=== PATIENT | male | born 1940 | race Caucasian/White ===

== ENCOUNTER → 2016-11-10 | Outpatient (CLI) | payer MEDICARE ==
--- NOTE | 2016-11-10 14:01 | REP ---
LEFT FOOT: HISTORY: Pain after trauma. 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 Large plantar and retrocalcaneal heel spurs are present. There is no evidence of an acute fracture. Signed by Jim Saucedo DO 11/10/2016 02:47 P
== END ==
LOC: M WUC 12:29
PROVIDERS: ATTEND Physician Assistant
DX: S93.602A Unspecified sprain of left foot, initial encounter (principal); X58.XXXA Exposure to other specified factors, initial encounter; Y93.9 Activity, unspecified; Y92.9 Unspecified place or not applicable; Y99.8 Other external cause status

== ENCOUNTER → 2017-02-11 | Outpatient (REF) | payer MEDICARE | LOC: M LAB REF 16:46 | PROVIDERS: ATTEND Internal Medicine | DX: N18.3 Chronic kidney disease, stage 3 (moderate) (principal) ==

== ENCOUNTER → 2017-05-28 | Outpatient (REF) | payer MEDICARE, OTHER ==
[2017-05-28 19:02] LABS: PERCENT SATURATION 20.5 % (19.7-50.0)
== END ==
LOC: M LAB REF 17:18
PROVIDERS: ATTEND Internal Medicine
DX: D64.9 Anemia, unspecified (principal)

== ENCOUNTER → 2018-11-17 | Outpatient (REF) | payer MEDICARE, OTHER | LOC: M LAB REF 17:56 | PROVIDERS: ATTEND Internal Medicine | DX: R25.1 Tremor, unspecified (principal) ==

== ENCOUNTER 2021-08-08 04:26 | Inpatient (IN) | payer MEDICARE, OTHER ==
[~2021-08-08] VITALS: Ht 175.3 cm; Wt 97.0 kg
[2021-08-08] MEDS ORDERED: NS 1,000 ML IV ONE (04:40)
[2021-08-08 05:00] LABS: BASO # 0.1 10^3/uL (0.0-0.2); BASO % 0.5 % (0.0-1.0); EOS % 0.2 % (0.0-3.0); HEMATOCRIT 37.7 % (42.0-52.0); HEMOGLOBIN 12.2 g/dl (13.5-17.5); LYMPH # 0.8 10^3/uL (1.5-5.0); LYMPH % 6.5 % (24.0-44.0); MEAN CORPUSCULAR HEMOGLOBIN 30.7 pg (27.0-33.0); MEAN CORPUSCULAR HGB CONC 32.4 g/dl (32.0-36.5); MEAN CORPUSCULAR VOLUME 94.7 fl (80.0-96.0); MONO # 0.6 10^3/uL (0.0-0.8); MONO % 5.2 % (2.0-8.0); NEUTROPHILS # 10.5 10^3/uL (1.5-8.5); PLATELET COUNT, AUTOMATED 184 10^3/uL (150-450); RED BLOOD COUNT 3.98 10^6/uL (4.30-6.10); WHITE BLOOD COUNT 12.1 10^3/uL (4.0-10.0)
[2021-08-08] MEDS ORDERED: ONDANSETRON 4MG/2ML VIAL As Ordered ONE (05:01)
[2021-08-08] MEDS ORDERED: ONDANSETRON 4MG/2ML VIAL IV ONE (05:10)
[2021-08-08 05:26] LABS: ALBUMIN 3.3 GM/DL (3.2-5.2); BILIRUBIN,DIRECT 0.2 MG/DL (0.0-0.2); BILIRUBIN,TOTAL 0.3 MG/DL (0.2-1.0); CALCIUM LEVEL 8.9 MG/DL (8.8-10.2); CREATININE FOR GFR 2.22 MG/DL (0.70-1.30); GLOMERULAR FILTRATION RATE 30.4 (>35); POTASSIUM SERUM 4.1 MEQ/L (3.5-5.1); TOTAL PROTEIN 7.7 GM/DL (6.4-8.2)
[2021-08-08 05:31] LABS: CK-MB VALUE MASS < 1.0 NG/ML (<3.6); CPK CREATINE PHOSPHOKINASE 134 U/L (39-308); MB/CK RELATIVE INDEX 0.75 (< OR =4)
[2021-08-08 06:44] LABS: CK-MB VALUE MASS 1.4 NG/ML (<3.6); MB/CK RELATIVE INDEX 1.09 (< OR =4)
[2021-08-08] MEDS ORDERED: NS 2,000 ML in IV 1 EA IV ONE (06:50)
[2021-08-08] MEDS ORDERED: SITA50TAB PO (10:19)
[2021-08-08] MEDS ORDERED: HOME MED LIST COMPLETE! XX SCH (10:20)
[2021-08-08] MEDS: NS 1,000 ML IV SCH (14:21)
[2021-08-08 14:22] VITALS: BP 172/83
[2021-08-08 17:18] LABS: BASO % 0.3 % (0.0-1.0); EOS % 0.1 % (0.0-3.0); HEMATOCRIT 33.7 % (42.0-52.0); HEMOGLOBIN 10.8 g/dl (13.5-17.5); LYMPH # 1.6 10^3/uL (1.5-5.0); LYMPH % 12.9 % (24.0-44.0); MEAN CORPUSCULAR HEMOGLOBIN 30.3 pg (27.0-33.0); MEAN CORPUSCULAR VOLUME 94.4 fl (80.0-96.0); MONO # 0.7 10^3/uL (0.0-0.8); MONO % 5.7 % (2.0-8.0); NEUTROPHILS # 10.2 10^3/uL (1.5-8.5); NEUTROPHILS % 80.4 % (36.0-66.0); PLATELET COUNT, AUTOMATED 166 10^3/uL (150-450); RED BLOOD COUNT 3.57 10^6/uL (4.30-6.10); WHITE BLOOD COUNT 12.7 10^3/uL (4.0-10.0)
[2021-08-08 17:53] LABS: BILIRUBIN,TOTAL 0.3 MG/DL (0.2-1.0); CALCIUM LEVEL 8.3 MG/DL (8.8-10.2); CREATININE FOR GFR 1.72 MG/DL (0.70-1.30); GLOMERULAR FILTRATION RATE 40.8 (>35); POTASSIUM SERUM 4.4 MEQ/L (3.5-5.1); THYROID STIMULATING HORMONE 0.696 uIU/ML (0.358-3.740); TOTAL PROTEIN 6.9 GM/DL (6.4-8.2)
[2021-08-08 18:16] LABS: CK-MB VALUE MASS 10.3 NG/ML (<3.6); MB/CK RELATIVE INDEX 0.67 (< OR =4)
[2021-08-08 22:00] VITALS: BP 166/61
[2021-08-09 05:00] VITALS: BP 144/70
[2021-08-09] MEDS: NS 1,000 ML IV SCH (06:37)
[2021-08-09 06:40] LABS: HEMATOCRIT 32.4 % (42.0-52.0); HEMOGLOBIN 10.4 g/dl (13.5-17.5); MEAN CORPUSCULAR HEMOGLOBIN 30.4 pg (27.0-33.0); MEAN CORPUSCULAR HGB CONC 32.1 g/dl (32.0-36.5); MEAN CORPUSCULAR VOLUME 94.7 fl (80.0-96.0); PLATELET COUNT, AUTOMATED 155 10^3/uL (150-450); RED BLOOD COUNT 3.42 10^6/uL (4.30-6.10); WHITE BLOOD COUNT 10.2 10^3/uL (4.0-10.0)
[2021-08-09 07:04] LABS: ALBUMIN 2.6 GM/DL (3.2-5.2); BILIRUBIN,TOTAL 0.3 MG/DL (0.2-1.0); CALCIUM LEVEL 8.6 MG/DL (8.8-10.2); CREATININE FOR GFR 1.61 MG/DL (0.70-1.30); GLOMERULAR FILTRATION RATE 44.1 (>35); POTASSIUM SERUM 4.1 MEQ/L (3.5-5.1); TOTAL PROTEIN 6.7 GM/DL (6.4-8.2)
[2021-08-09 14:00] VITALS: BP 141/64
[2021-08-09] MEDS: NYSTATIN 100,000 UNITS/GM TOPICAL PWD 15 GM TOP PRN (18:10)
[2021-08-09 21:04] VITALS: BP 133/64
[2021-08-10 05:31] VITALS: BP 143/78
[2021-08-10 09:03] LABS: BASO % 0.6 % (0.0-1.0); EOS # 0.2 10^3/uL (0.0-0.5); EOS % 2.7 % (0.0-3.0); HEMATOCRIT 32.3 % (42.0-52.0); HEMOGLOBIN 10.5 g/dl (13.5-17.5); LYMPH % 30.2 % (24.0-44.0); MEAN CORPUSCULAR HEMOGLOBIN 30.3 pg (27.0-33.0); MEAN CORPUSCULAR HGB CONC 32.5 g/dl (32.0-36.5); MEAN CORPUSCULAR VOLUME 93.1 fl (80.0-96.0); MONO # 0.6 10^3/uL (0.0-0.8); MONO % 8.5 % (2.0-8.0); NEUTROPHILS # 3.8 10^3/uL (1.5-8.5); NEUTROPHILS % 57.5 % (36.0-66.0); PLATELET COUNT, AUTOMATED 179 10^3/uL (150-450); RED BLOOD COUNT 3.47 10^6/uL (4.30-6.10); WHITE BLOOD COUNT 6.6 10^3/uL (4.0-10.0)
[2021-08-10 09:26] LABS: CALCIUM LEVEL 8.4 MG/DL (8.8-10.2); CREATININE FOR GFR 1.47 MG/DL (0.70-1.30); GLOMERULAR FILTRATION RATE 48.9 (>35); POTASSIUM SERUM 3.9 MEQ/L (3.5-5.1)
[2021-08-10 10:25] VITALS: BP 174/82
[2021-08-10 14:00] VITALS: BP 121/68
[2021-08-10] MEDS: NYSTATIN 100,000 UNITS/GM TOPICAL PWD 15 GM TOP PRN (21:17)
[2021-08-10 22:00] VITALS: BP 154/65
[2021-08-11 06:00] VITALS: BP 154/72
[2021-08-11 06:37] LABS: HEMATOCRIT 34.1 % (42.0-52.0); MEAN CORPUSCULAR HEMOGLOBIN 29.9 pg (27.0-33.0); MEAN CORPUSCULAR HGB CONC 32.3 g/dl (32.0-36.5); MEAN CORPUSCULAR VOLUME 92.7 fl (80.0-96.0); PLATELET COUNT, AUTOMATED 197 10^3/uL (150-450); RED BLOOD COUNT 3.68 10^6/uL (4.30-6.10); WHITE BLOOD COUNT 6.5 10^3/uL (4.0-10.0)
[2021-08-11 06:55] LABS: CALCIUM LEVEL 8.8 MG/DL (8.8-10.2); CREATININE FOR GFR 1.51 MG/DL (0.70-1.30); GLOMERULAR FILTRATION RATE 47.5 (>35); POTASSIUM SERUM 3.5 MEQ/L (3.5-5.1)
[2021-08-12 06:00] VITALS: BP 142/78
[2021-08-12] MEDS: CALCIUM CARBONATE 500 MG CHEW U/D PO PRN (18:19)
[2021-08-13 06:00] VITALS: BP 171/75
[2021-08-13] MEDS ORDERED: **hydrALAZINE HCL** 25 MG TAB PO ONE (06:20)
[2021-08-13 06:45] VITALS: BP 180/78
[2021-08-13] MEDS: amLODIPine 5 MG TAB PO SCH (08:06)
[2021-08-13 12:08] VITALS: BP 143/68
[2021-08-13] MEDS: CALCIUM CARBONATE 500 MG CHEW U/D PO PRN (15:49)
[2021-08-13] MEDS: ACETAMINOPHEN TAB 650MG DOSE (2X325MG) PO PRN (15:49)
[2021-08-13] MEDS ORDERED: SENNA 8.6 MG TAB (SENOKOT) PO PRN (16:30)
[2021-08-13] MEDS ORDERED: DOCUSATE SODIUM 100MG CAPSULE PO PRN (16:30)
[2021-08-13] MEDS ORDERED: MOM 30ML SUSPENSION UDC PO PRN (16:30)
[2021-08-14 06:00] VITALS: BP 153/70
[2021-08-14] MEDS: amLODIPine 5 MG TAB PO SCH (09:00)
[2021-08-14] MEDS: ACETAMINOPHEN TAB 650MG DOSE (2X325MG) PO PRN ×2 (09:02→17:47)
[2021-08-14] MEDS: CALCIUM CARBONATE 500 MG CHEW U/D PO PRN ×2 (15:40→20:12)
[2021-08-14 21:00] VITALS: BP 150/60
[2021-08-14] MEDS ORDERED: GI COCKTAIL 50ML BTL(HYOSCYAMINE/MAALOX/LIDOCAINE VISCOUS)(1:3:1) PO ONE (21:00)
[2021-08-15] MEDS: CALCIUM CARBONATE 500 MG CHEW U/D PO PRN ×5 (00:17→22:00)
[2021-08-15 06:00] VITALS: BP 158/81
[2021-08-15] MEDS: amLODIPine 5 MG TAB PO SCH (09:08)
[2021-08-15] MEDS: ACETAMINOPHEN TAB 650MG DOSE (2X325MG) PO PRN (10:46)
[2021-08-15] MEDS ORDERED: MAALOX 30 ML SUSP *UDC PO ONE (15:35)
[2021-08-16] MEDS: ACETAMINOPHEN TAB 650MG DOSE (2X325MG) PO PRN (02:45)
[2021-08-16 06:00] VITALS: BP 163/74
[2021-08-16] MEDS: amLODIPine 5 MG TAB PO SCH (09:14)
[2021-08-16] MEDS: CALCIUM CARBONATE 500 MG CHEW U/D PO PRN (22:27)
[2021-08-17 06:00] VITALS: BP 129/70
[2021-08-17] MEDS: CALCIUM CARBONATE 500 MG CHEW U/D PO PRN (09:33)
[2021-08-17] MEDS: amLODIPine 5 MG TAB PO SCH (09:34)
[2021-08-17] MEDS ORDERED: MAALOX 30 ML SUSP *UDC PO PRN (16:45)
[2021-08-17] MEDS: ACETAMINOPHEN TAB 650MG DOSE (2X325MG) PO PRN (18:29)
[2021-08-18] MEDS: ACETAMINOPHEN TAB 650MG DOSE (2X325MG) PO PRN ×2 (02:23→12:12)
[2021-08-18 06:00] VITALS: BP 149/76
[2021-08-18] MEDS: amLODIPine 5 MG TAB PO SCH (09:12)
[2021-08-18] MEDS: CALCIUM CARBONATE 500 MG CHEW U/D PO PRN ×2 (12:15→18:55)
[2021-08-19] MEDS: ACETAMINOPHEN TAB 650MG DOSE (2X325MG) PO PRN ×2 (01:07→20:58)
[2021-08-19 06:00] VITALS: BP 158/72
[2021-08-19 08:10] VITALS: BP 149/80
[2021-08-19] MEDS: amLODIPine 5 MG TAB PO SCH (08:37)
[2021-08-19 13:16] LABS: HEMATOCRIT 38.9 % (42.0-52.0); HEMOGLOBIN 12.3 g/dl (13.5-17.5); MEAN CORPUSCULAR HGB CONC 31.6 g/dl (32.0-36.5); MEAN CORPUSCULAR VOLUME 94.9 fl (80.0-96.0); PLATELET COUNT, AUTOMATED 241 10^3/uL (150-450)
[2021-08-19 13:38] LABS: CALCIUM LEVEL 9.4 MG/DL (8.8-10.2); CREATININE FOR GFR 1.89 MG/DL (0.70-1.30); GLOMERULAR FILTRATION RATE 36.6 (>35); POTASSIUM SERUM 5.1 MEQ/L (3.5-5.1)
[2021-08-19 13:39] LABS: MAGNESIUM LEVEL 2.4 MG/DL (1.8-2.4); PHOSPHORUS LEVEL 3.2 MG/DL (2.5-4.9)
[2021-08-19] MEDS ORDERED: NS 1,000 ML IV SCH (14:25)
[2021-08-19] MEDS: FAMOTIDINE 20 MG TAB PO SCH (20:38)
[2021-08-19] MEDS: HEPARIN SOD (PORCINE) 5000UNITS/ML 1ML VIAL/SYRINGE SQ SCH (21:00)
[2021-08-20] MEDS: HEPARIN SOD (PORCINE) 5000UNITS/ML 1ML VIAL/SYRINGE SQ SCH ×3 (05:14→21:41)
[2021-08-20 06:00] VITALS: BP 169/76
[2021-08-20] MEDS: FAMOTIDINE 20 MG TAB PO SCH ×2 (09:13→21:40)
[2021-08-20] MEDS: amLODIPine 5 MG TAB PO SCH (09:13)
[2021-08-20 10:00] VITALS: BP 162/74
[2021-08-20] MEDS: **hydrALAZINE HCL** 25 MG TAB PO SCH ×2 (15:01→18:37)
[2021-08-21] MEDS: **hydrALAZINE HCL** 25 MG TAB PO SCH ×4 (01:03→18:24)
[2021-08-21 06:00] VITALS: BP 153/71
[2021-08-21] MEDS: HEPARIN SOD (PORCINE) 5000UNITS/ML 1ML VIAL/SYRINGE SQ SCH ×3 (06:11→21:10)
[2021-08-21 06:53] LABS: CALCIUM LEVEL 8.7 MG/DL (8.8-10.2); CREATININE FOR GFR 1.68 MG/DL (0.70-1.30); MAGNESIUM LEVEL 2.1 MG/DL (1.8-2.4); PHOSPHORUS LEVEL 2.8 MG/DL (2.5-4.9); POTASSIUM SERUM 4.4 MEQ/L (3.5-5.1)
[2021-08-21] MEDS: amLODIPine 5 MG TAB PO SCH (09:10)
[2021-08-21] MEDS: FAMOTIDINE 20 MG TAB PO SCH ×2 (09:10→21:08)
[2021-08-21] MEDS: ACETAMINOPHEN TAB 650MG DOSE (2X325MG) PO PRN (12:58)
[2021-08-22] MEDS: **hydrALAZINE HCL** 25 MG TAB PO SCH ×3 (01:57→11:22)
[2021-08-22] MEDS: HEPARIN SOD (PORCINE) 5000UNITS/ML 1ML VIAL/SYRINGE SQ SCH ×2 (05:52→11:23)
[2021-08-22 06:00] VITALS: BP 136/73
[2021-08-22 11:22] VITALS: BP 136/73
[2021-08-22] MEDS: amLODIPine 5 MG TAB PO SCH (11:22)
[2021-08-22] MEDS: FAMOTIDINE 20 MG TAB PO SCH (11:22)
[2021-08-22] MEDS: ACETAMINOPHEN TAB 650MG DOSE (2X325MG) PO PRN (11:23)
[2021-08-22] MEDS ORDERED: AMLO1TAB24 PO (12:39)
[2021-08-22] MEDS ORDERED: HYDR25TA PO (12:39)
[2021-08-22] MEDS ORDERED: FAMO20TA PO (12:39)
== END 2021-08-22 16:05 | disposition home health service (06) | DRG 392 ==
LOC: M ED 04:26 → M ED INP 10:01 → ENRESERV 12:43 → M MSPAV 16:04
PROVIDERS: ADMIT Internal Medicine; ATTEND Internal Medicine
DX: R11.2 Nausea with vomiting, unspecified (principal); B97.29 Other coronavirus as the cause of diseases classified elsewhere; I10 Essential (primary) hypertension; E11.22 Type 2 diabetes mellitus with diabetic chronic kidney disease; Z79.899 Other long term (current) drug therapy; Z20.822 Contact with and (suspected) exposure to COVID-19; R53.1 Weakness; N18.30 Chronic kidney disease, stage 3 unspecified; K21.9 Gastro-esophageal reflux disease without esophagitis

== ENCOUNTER → 2021-09-03 | Outpatient (REF) | payer MEDICARE, OTHER ==
[~2021-09-03] MED LIST: AMLO1TAB24 PO; FAMO20TA PO; HYDR25TA PO; SITA50TAB PO
[2021-09-03 17:37] LABS: PERCENT SATURATION 28.8 % (19.7-50.0)
== END ==
LOC: M LAB REF 16:05
PROVIDERS: ATTEND Internal Medicine
DX: N18.9 Chronic kidney disease, unspecified (principal); D63.1 Anemia in chronic kidney disease

== ENCOUNTER 2021-10-30 17:58 | Inpatient (IN) | payer OTHER ==
[~2021-10-30] VITALS: Ht 175.3 cm; Wt 81.8 kg
[2021-10-30] MEDS: COMBIVENT RESPIMAT 100-20MCG INHALER 4GM INH SCH ×3 (20:05→20:37)
[2021-10-30 20:35] LABS: VENOUS BASE EXCESS -4.7 (-2.0-2.0); VENOUS HCO3 21.6 MEQ/L (23.0-27.0); VENOUS O2 SATURATION 50.5 % (60.0-80.0); VENOUS PARTIAL PRESSURE CO2 44.4 mmHg (38.0-50.0); VENOUS PH 7.304 UNITS (7.330-7.430); VENOUS STANDARD HCO3 19.6 MEQ/L; VENOUS TOTAL CO2 22.9 MEQ/L (24.0-28.0)
[2021-10-30 20:41] LABS: BASO % 0.7 % (0.0-1.0); EOS # 0.1 10^3/uL (0.0-0.5); EOS % 1.1 % (0.0-3.0); HEMATOCRIT 37.6 % (42.0-52.0); HEMOGLOBIN 12.1 g/dl (13.5-17.5); LYMPH # 1.5 10^3/uL (1.5-5.0); MEAN CORPUSCULAR HEMOGLOBIN 30.6 pg (27.0-33.0); MEAN CORPUSCULAR HGB CONC 32.2 g/dl (32.0-36.5); MEAN CORPUSCULAR VOLUME 95.2 fl (80.0-96.0); MONO # 0.3 10^3/uL (0.0-0.8); MONO % 7.2 % (2.0-8.0); NEUTROPHILS # 2.7 10^3/uL (1.5-8.5); NEUTROPHILS % 57.8 % (36.0-66.0); PLATELET COUNT, AUTOMATED 186 10^3/uL (150-450); RED BLOOD COUNT 3.95 10^6/uL (4.30-6.10); WHITE BLOOD COUNT 4.6 10^3/uL (4.0-10.0)
[2021-10-30] MEDS: FAMOTIDINE 20 MG TAB PO SCH (21:00)
[2021-10-30] MEDS: HumaLOG INSULIN (NovoLOG) PER UNIT SC SCH (21:00)
[2021-10-30 21:15] LABS: CK-MB VALUE MASS 1.4 NG/ML (<3.6); MB/CK RELATIVE INDEX 0.31 (< OR =4)
[2021-10-30 21:25] LABS: ALBUMIN 3.5 GM/DL (3.2-5.2); BILIRUBIN,DIRECT 0.1 MG/DL (0.0-0.2); BILIRUBIN,TOTAL 0.4 MG/DL (0.2-1.0); CALCIUM LEVEL 9.3 MG/DL (8.8-10.2); CREATININE FOR GFR 2.3 MG/DL (0.70-1.30); GLOMERULAR FILTRATION RATE 29.2 (>35); POTASSIUM SERUM 4.3 MEQ/L (3.5-5.1); TOTAL PROTEIN 8.2 GM/DL (6.4-8.2)
[2021-10-30] MEDS ORDERED: NS 500 ML IV ONE (21:30)
[2021-10-30] MEDS ORDERED: AMLO1TAB24 PO (22:36)
[2021-10-30] MEDS ORDERED: FAMO20TA4 PO (22:36)
[2021-10-30] MEDS ORDERED: HYDR-3910 PO (22:36)
[2021-10-30 22:39] LABS: CK-MB VALUE MASS 1.3 NG/ML (<3.6); MB/CK RELATIVE INDEX 0.26 (< OR =4)
[2021-10-30] MEDS ORDERED: HOME MED LIST COMPLETE! XX SCH (22:40)
[2021-10-30] MEDS ORDERED: MOM 30ML SUSPENSION UDC PO PRN (23:25)
[2021-10-30] MEDS ORDERED: DEXTROSE 50% 50 ML SYRINGE IV PRN (23:30)
[2021-10-30] MEDS ORDERED: GLUCOSE 4GM CHEW TABLET PO PRN (23:30)
[2021-10-30] MEDS ORDERED: GLUCAGON INJ 1MG VIAL SC PRN (23:30)
[2021-10-30] MEDS: NS 1,000 ML IV SCH (23:30)
[2021-10-31 01:09] LABS: INR 1.02; PROTHROMBIN TIME 13.8 SECONDS (12.7-14.5)
[2021-10-31 01:10] LABS: PARTIAL THROMBOPLASTIN TIME 26.8 SECONDS (25.9-37.0)
[2021-10-31 01:12] LABS: C REACTIVE PROTEIN QUANTITATIV 1.4 MG/DL (0.00-0.30)
[2021-10-31 01:13] LABS: D-DIMER QUANT 1516.19 ng/ml (<500)
[2021-10-31] MEDS ORDERED: REMDESIVIR 200 MG in NS 250 ML IV ONE (02:00)
[2021-10-31] MEDS ORDERED: SODIUM CHLORIDE 0.9% INJ 10 ML SYR IV ONE (04:00)
[2021-10-31] MEDS ORDERED: IPRATROPIUM 0.5MG/ALBUTEROL 2.5MG INH SOL UD 3ML (DUONEB) NEB ONE (06:20)
[2021-10-31] MEDS: HEPARIN SOD (PORCINE) 5000UNITS/ML 1ML VIAL/SYRINGE SC SCH ×3 (06:24→20:22)
[2021-10-31] MEDS ORDERED: hydrALAZINE 20MG/ML 1ML VIAL (J0360 PER 20MG) IV ONE (06:25)
[2021-10-31 06:54] LABS: HEMATOCRIT 34.4 % (42.0-52.0); HEMOGLOBIN 11.2 g/dl (13.5-17.5); MEAN CORPUSCULAR HEMOGLOBIN 30.9 pg (27.0-33.0); MEAN CORPUSCULAR HGB CONC 32.6 g/dl (32.0-36.5); MEAN CORPUSCULAR VOLUME 94.8 fl (80.0-96.0); PLATELET COUNT, AUTOMATED 162 10^3/uL (150-450); RED BLOOD COUNT 3.63 10^6/uL (4.30-6.10); WHITE BLOOD COUNT 5.7 10^3/uL (4.0-10.0)
[2021-10-31] MEDS: **hydrALAZINE HCL** 25 MG TAB PO SCH ×4 (07:03→23:53)
[2021-10-31 07:19] LABS: ALBUMIN 3.3 GM/DL (3.2-5.2); BILIRUBIN,DIRECT 0.1 MG/DL (0.0-0.2); BILIRUBIN,TOTAL 0.3 MG/DL (0.2-1.0); CALCIUM LEVEL 8.1 MG/DL (8.8-10.2); CREATININE FOR GFR 2.26 MG/DL (0.70-1.30); GLOMERULAR FILTRATION RATE 29.8 (>35); MAGNESIUM LEVEL 1.8 MG/DL (1.8-2.4); POTASSIUM SERUM 4.1 MEQ/L (3.5-5.1); TOTAL PROTEIN 7.2 GM/DL (6.4-8.2)
[2021-10-31] MEDS: HumaLOG INSULIN (NovoLOG) PER UNIT SC SCH ×6 (07:23→20:09)
[2021-10-31] MEDS: NS 1,000 ML IV SCH (08:19)
[2021-10-31] MEDS: DOCUSATE SODIUM 100MG CAPSULE PO SCH ×2 (10:29→20:22)
[2021-10-31] MEDS: amLODIPine 5 MG TAB PO SCH (10:29)
[2021-10-31] MEDS: FAMOTIDINE 20 MG TAB PO SCH ×2 (10:29→20:22)
[2021-10-31] MEDS: ACETAMINOPHEN TAB 650MG DOSE (2X325MG) PO PRN ×2 (11:16→17:51)
[2021-10-31 15:50] VITALS: BP 137/72
[2021-10-31 16:00] VITALS: O2SAT 99
[2021-10-31 16:00] LABS: ALBUMIN 3.5 GM/DL (3.2-5.2); BILIRUBIN,TOTAL 0.4 MG/DL (0.2-1.0); CALCIUM LEVEL 8.8 MG/DL (8.8-10.2); CREATININE FOR GFR 2.51 MG/DL (0.70-1.30); GLOMERULAR FILTRATION RATE 26.4 (>35); POTASSIUM SERUM 4.2 MEQ/L (3.5-5.1); TOTAL PROTEIN 7.6 GM/DL (6.4-8.2)
[2021-10-31] MEDS: dexameTHASONE 4 MG/ML 1ML VIAL (J1100 PER 1MG) IV SCH (17:45)
[2021-10-31 20:00] VITALS: BP 132/62
[2021-10-31] MEDS: REMDESIVIR 100 MG in NS 250 ML IV SCH (20:22)
[2021-10-31] MEDS ORDERED: VANCOMYCIN HCL 1,000 MG, VIAL MATE ADAPTER 1 EACH in NS 250 ML IV ONE (20:50)
[2021-10-31] MEDS: SODIUM CHLORIDE 0.9% INJ 10 ML SYR IV SCH (21:37)
[2021-10-31 22:00] VITALS: BP 132/62
[2021-10-31] MEDS ORDERED: VANCOMYCIN HCL 750 MG, VIAL MATE ADAPTER 1 EACH in NS 250 ML IV ONE (23:00)
[2021-11-01] MEDS ORDERED: VANCOMYCIN HCL 750 MG, VIAL MATE ADAPTER 1 EACH in NS 250 ML IV ONE ×3
[2021-11-01 04:00] VITALS: BP 135/65
[2021-11-01] MEDS: HEPARIN SOD (PORCINE) 5000UNITS/ML 1ML VIAL/SYRINGE SC SCH ×3 (05:21→20:23)
[2021-11-01] MEDS: **hydrALAZINE HCL** 25 MG TAB PO SCH ×3 (05:21→17:22)
[2021-11-01 08:00] VITALS: BP 148/67
[2021-11-01] MEDS: FAMOTIDINE 20 MG TAB PO SCH ×2 (08:23→20:23)
[2021-11-01] MEDS: DOCUSATE SODIUM 100MG CAPSULE PO SCH ×2 (08:23→20:23)
[2021-11-01] MEDS: HumaLOG INSULIN (NovoLOG) PER UNIT SC SCH ×4 (08:25→20:24)
[2021-11-01] MEDS: amLODIPine 5 MG TAB PO SCH (08:25)
[2021-11-01 09:12] LABS: HEMATOCRIT 36.6 % (42.0-52.0); HEMOGLOBIN 11.9 g/dl (13.5-17.5); LYMPH # 0.9 10^3/uL (1.5-5.0); LYMPH % 9.1 % (24.0-44.0); MEAN CORPUSCULAR HEMOGLOBIN 31.1 pg (27.0-33.0); MEAN CORPUSCULAR HGB CONC 32.5 g/dl (32.0-36.5); MEAN CORPUSCULAR VOLUME 95.6 fl (80.0-96.0); MONO # 0.3 10^3/uL (0.0-0.8); NEUTROPHILS # 8.2 10^3/uL (1.5-8.5); NEUTROPHILS % 87.3 % (36.0-66.0); PLATELET COUNT, AUTOMATED 186 10^3/uL (150-450); RED BLOOD COUNT 3.83 10^6/uL (4.30-6.10); WHITE BLOOD COUNT 9.4 10^3/uL (4.0-10.0)
[2021-11-01 09:24] LABS: INR 1.1; PARTIAL THROMBOPLASTIN TIME 37.7 SECONDS (25.9-37.0); PROTHROMBIN TIME 14.6 SECONDS (12.7-14.5)
[2021-11-01 09:27] LABS: D-DIMER QUANT 2169.41 ng/ml (<500)
[2021-11-01 09:48] LABS: ALBUMIN 3.1 GM/DL (3.2-5.2); BILIRUBIN,TOTAL 0.3 MG/DL (0.2-1.0); CALCIUM LEVEL 8.7 MG/DL (8.8-10.2); CREATININE FOR GFR 1.89 MG/DL (0.70-1.30); GLOMERULAR FILTRATION RATE 36.6 (>35); MAGNESIUM LEVEL 2.1 MG/DL (1.8-2.4); TOTAL PROTEIN 6.9 GM/DL (6.4-8.2)
[2021-11-01 09:50] LABS: C REACTIVE PROTEIN QUANTITATIV 6.65 MG/DL (0.00-0.30)
[2021-11-01 11:33] LABS: VANCOMYCIN RANDOM 15.8 UG/ML
[2021-11-01 13:43] VITALS: BP 152/72
[2021-11-01] MEDS ORDERED: VANCOMYCIN HCL 1,000 MG, VIAL MATE ADAPTER 1 EACH in NS 250 ML IV SCH (14:00)
[2021-11-01] MEDS: dexameTHASONE 4 MG/ML 1ML VIAL (J1100 PER 1MG) IV SCH (17:21)
[2021-11-01 19:21] LABS: AMORPHOUS SEDIMENT SMALL (NEGATIVE); APPEARANCE, URINE CLOUDY (CLEAR); BACTERIA, URINE AUTO NEGATIVE (NEGATIVE); BILIRUBIN, URINE AUTO NEGATIVE (NEGATIVE); BLOOD, URINE BLOOD 1+ (NEGATIVE); COLOR, URINE YELLOW (YELLOW); GLUCOSE, URINE (UA) AUTO 1+ mg/dL (NEGATIVE); KETONE, URINE AUTO TRACE mg/dL (NEGATIVE); LEUKOCYTE ESTERASE, URINE AUTO NEGATIVE (NEGATIVE); MUCUS, URINE SMALL (NEGATIVE); NITRITE, URINE AUTO NEGATIVE (NEGATIVE); PROTEIN, URINE AUTO 1+ mg/dL (NEGATIVE); RBC, URINE AUTO 43 /HPF (0-3); SPECIFIC GRAVITY URINE AUTO 1.024 (1.002-1.035); SQUAMOUS EPITHELIAL CELL UR AU 2 /HPF (0-6); URIC ACID CRYSTALS SMALL; UROBILINOGEN, URINE AUTO 0.2 mg/dL (0.0-2.0); WBC, URINE AUTO 4 /HPF (0-3)
[2021-11-01 20:00] VITALS: BP 150/70; O2SAT 99
[2021-11-01] MEDS: REMDESIVIR 100 MG in NS 250 ML IV SCH (21:29)
[2021-11-01] MEDS: SODIUM CHLORIDE 0.9% INJ 10 ML SYR IV SCH (22:32)
[2021-11-02] VITALS (8 sets, daily range): BP systolic 167–170; BP diastolic 74–77; O2SAT 96–98
[2021-11-02] MEDS: **hydrALAZINE HCL** 25 MG TAB PO SCH ×4 (05:21→17:56)
[2021-11-02] MEDS: NYSTATIN 100,000 UNITS/GM TOPICAL PWD 15 GM TOP PRN ×2 (05:21→21:29)
[2021-11-02] MEDS: HEPARIN SOD (PORCINE) 5000UNITS/ML 1ML VIAL/SYRINGE SC SCH ×3 (05:21→21:30)
[2021-11-02 08:10] LABS: BASO % 0.1 % (0.0-1.0); HEMATOCRIT 33.6 % (42.0-52.0); HEMOGLOBIN 10.9 g/dl (13.5-17.5); LYMPH # 0.9 10^3/uL (1.5-5.0); LYMPH % 7.4 % (24.0-44.0); MEAN CORPUSCULAR HEMOGLOBIN 30.7 pg (27.0-33.0); MEAN CORPUSCULAR HGB CONC 32.4 g/dl (32.0-36.5); MEAN CORPUSCULAR VOLUME 94.6 fl (80.0-96.0); MONO # 0.5 10^3/uL (0.0-0.8); MONO % 3.7 % (2.0-8.0); NEUTROPHILS # 10.8 10^3/uL (1.5-8.5); NEUTROPHILS % 87.7 % (36.0-66.0); PLATELET COUNT, AUTOMATED 207 10^3/uL (150-450); RED BLOOD COUNT 3.55 10^6/uL (4.30-6.10); WHITE BLOOD COUNT 12.4 10^3/uL (4.0-10.0)
[2021-11-02] MEDS: amLODIPine 5 MG TAB PO SCH (08:16)
[2021-11-02] MEDS: HumaLOG INSULIN (NovoLOG) PER UNIT SC SCH ×4 (08:16→21:00)
[2021-11-02] MEDS: FAMOTIDINE 20 MG TAB PO SCH ×2 (08:16→21:30)
[2021-11-02] MEDS: DOCUSATE SODIUM 100MG CAPSULE PO SCH ×2 (08:16→21:30)
[2021-11-02 08:22] LABS: INR 1.23; PARTIAL THROMBOPLASTIN TIME 35.5 SECONDS (25.9-37.0); PROTHROMBIN TIME 15.9 SECONDS (12.7-14.5)
[2021-11-02 08:25] LABS: D-DIMER QUANT 1717.75 ng/ml (<500)
[2021-11-02 08:44] LABS: ALBUMIN 2.8 GM/DL (3.2-5.2); BILIRUBIN,TOTAL 0.3 MG/DL (0.2-1.0); C REACTIVE PROTEIN QUANTITATIV 4.45 MG/DL (0.00-0.30); CALCIUM LEVEL 8.7 MG/DL (8.8-10.2); CREATININE FOR GFR 1.72 MG/DL (0.70-1.30); GLOMERULAR FILTRATION RATE 40.8 (>35); MAGNESIUM LEVEL 2.1 MG/DL (1.8-2.4); TOTAL PROTEIN 6.4 GM/DL (6.4-8.2)
[2021-11-02] MEDS: predniSONE 20 MG TAB PO SCH (14:34)
[2021-11-02] MEDS: REMDESIVIR 100 MG in NS 250 ML IV SCH (21:29)
[2021-11-02] MEDS: SODIUM CHLORIDE 0.9% INJ 10 ML SYR IV SCH (23:00)
[2021-11-03] VITALS (7 sets, daily range): BP systolic 119–175; BP diastolic 55–82; O2SAT 93–97
[2021-11-03] MEDS: **hydrALAZINE HCL** 25 MG TAB PO SCH ×4 (05:46→17:01)
[2021-11-03] MEDS: HEPARIN SOD (PORCINE) 5000UNITS/ML 1ML VIAL/SYRINGE SC SCH ×3 (05:48→22:07)
[2021-11-03] MEDS: predniSONE 20 MG TAB PO SCH (08:11)
[2021-11-03] MEDS: HumaLOG INSULIN (NovoLOG) PER UNIT SC SCH ×4 (08:11→20:05)
[2021-11-03] MEDS: DOCUSATE SODIUM 100MG CAPSULE PO SCH ×2 (08:11→20:04)
[2021-11-03] MEDS: amLODIPine 5 MG TAB PO SCH (08:11)
[2021-11-03] MEDS: FAMOTIDINE 20 MG TAB PO SCH ×2 (08:11→20:04)
[2021-11-03 08:48] LABS: BASO % 0.1 % (0.0-1.0); LYMPH % 9.1 % (24.0-44.0); MEAN CORPUSCULAR HEMOGLOBIN 30.5 pg (27.0-33.0); MEAN CORPUSCULAR HGB CONC 32.3 g/dl (32.0-36.5); MEAN CORPUSCULAR VOLUME 94.5 fl (80.0-96.0); MONO # 0.6 10^3/uL (0.0-0.8); MONO % 5.2 % (2.0-8.0); NEUTROPHILS # 8.9 10^3/uL (1.5-8.5); NEUTROPHILS % 84.7 % (36.0-66.0); PLATELET COUNT, AUTOMATED 220 10^3/uL (150-450); RED BLOOD COUNT 3.28 10^6/uL (4.30-6.10); WHITE BLOOD COUNT 10.5 10^3/uL (4.0-10.0)
[2021-11-03 09:13] LABS: ALBUMIN 2.6 GM/DL (3.2-5.2); BILIRUBIN,TOTAL 0.2 MG/DL (0.2-1.0); CALCIUM LEVEL 8.3 MG/DL (8.8-10.2); CREATININE FOR GFR 1.53 MG/DL (0.70-1.30); GLOMERULAR FILTRATION RATE 46.7 (>35); MAGNESIUM LEVEL 1.8 MG/DL (1.8-2.4); POTASSIUM SERUM 4.2 MEQ/L (3.5-5.1); TOTAL PROTEIN 5.8 GM/DL (6.4-8.2)
[2021-11-03] MEDS: REMDESIVIR 100 MG in NS 250 ML IV SCH (22:07)
[2021-11-03] MEDS: SODIUM CHLORIDE 0.9% INJ 10 ML SYR IV SCH (23:00)
[2021-11-04] VITALS: O2SAT 93
[2021-11-04] MEDS: **hydrALAZINE HCL** 25 MG TAB PO SCH ×4 (00:46→17:16)
[2021-11-04 04:00] VITALS: O2SAT 94
[2021-11-04 04:32] VITALS: BP 169/79
[2021-11-04] MEDS: HEPARIN SOD (PORCINE) 5000UNITS/ML 1ML VIAL/SYRINGE SC SCH ×3 (05:23→21:22)
[2021-11-04 06:23] LABS: BASO % 0.1 % (0.0-1.0); HEMATOCRIT 31.7 % (42.0-52.0); HEMOGLOBIN 10.4 g/dl (13.5-17.5); LYMPH # 1.6 10^3/uL (1.5-5.0); LYMPH % 20.3 % (24.0-44.0); MEAN CORPUSCULAR HEMOGLOBIN 30.2 pg (27.0-33.0); MEAN CORPUSCULAR HGB CONC 32.8 g/dl (32.0-36.5); MEAN CORPUSCULAR VOLUME 92.2 fl (80.0-96.0); MONO # 0.8 10^3/uL (0.0-0.8); MONO % 10.4 % (2.0-8.0); NEUTROPHILS # 5.2 10^3/uL (1.5-8.5); NEUTROPHILS % 68.2 % (36.0-66.0); PLATELET COUNT, AUTOMATED 232 10^3/uL (150-450); RED BLOOD COUNT 3.44 10^6/uL (4.30-6.10); WHITE BLOOD COUNT 7.7 10^3/uL (4.0-10.0)
[2021-11-04 06:57] LABS: ALBUMIN 2.6 GM/DL (3.2-5.2); BILIRUBIN,TOTAL 0.5 MG/DL (0.2-1.0); CREATININE FOR GFR 1.44 MG/DL (0.70-1.30); GLOMERULAR FILTRATION RATE 50.1 (>35); MAGNESIUM LEVEL 1.6 MG/DL (1.8-2.4); POTASSIUM SERUM 3.8 MEQ/L (3.5-5.1); TOTAL PROTEIN 5.7 GM/DL (6.4-8.2)
[2021-11-04 08:00] VITALS: O2SAT 94
[2021-11-04] MEDS: FAMOTIDINE 20 MG TAB PO SCH ×2 (08:12→20:27)
[2021-11-04] MEDS: MAG SULF 1GM/100ML (MAG RUN) 1 GM in IV 1 EA IV SCH ×2 (08:12→08:14)
[2021-11-04] MEDS: DOCUSATE SODIUM 100MG CAPSULE PO SCH ×2 (08:12→20:26)
[2021-11-04] MEDS: amLODIPine 5 MG TAB PO SCH (08:12)
[2021-11-04] MEDS: ACETAMINOPHEN TAB 650MG DOSE (2X325MG) PO PRN ×2 (08:12→16:29)
[2021-11-04] MEDS: predniSONE 20 MG TAB PO SCH (08:12)
[2021-11-04] MEDS: HumaLOG INSULIN (NovoLOG) PER UNIT SC SCH ×4 (08:13→20:28)
[2021-11-04 20:00] VITALS: O2SAT 94
[2021-11-04] MEDS: SODIUM CHLORIDE 0.9% INJ 10 ML SYR IV SCH (21:22)
[2021-11-05] VITALS: O2SAT 96
[2021-11-05] MEDS: **hydrALAZINE HCL** 25 MG TAB PO SCH ×3 (00:17→12:10)
[2021-11-05] MEDS: ACETAMINOPHEN TAB 650MG DOSE (2X325MG) PO PRN ×2 (03:46→12:09)
[2021-11-05] MEDS ORDERED: amLODIPine 5 MG TAB PO ONE (03:55)
[2021-11-05 04:00] VITALS: BP 196/80; O2SAT 96
[2021-11-05 04:58] VITALS: BP 144/70
[2021-11-05] MEDS: HEPARIN SOD (PORCINE) 5000UNITS/ML 1ML VIAL/SYRINGE SC SCH ×2 (05:40→13:48)
[2021-11-05 06:29] LABS: BASO % 0.1 % (0.0-1.0); EOS % 0.3 % (0.0-3.0); HEMATOCRIT 33.8 % (42.0-52.0); HEMOGLOBIN 11.1 g/dl (13.5-17.5); LYMPH # 1.6 10^3/uL (1.5-5.0); LYMPH % 21.4 % (24.0-44.0); MEAN CORPUSCULAR HEMOGLOBIN 30.2 pg (27.0-33.0); MEAN CORPUSCULAR HGB CONC 32.8 g/dl (32.0-36.5); MEAN CORPUSCULAR VOLUME 92.1 fl (80.0-96.0); MONO # 0.9 10^3/uL (0.0-0.8); MONO % 12.8 % (2.0-8.0); NEUTROPHILS # 4.7 10^3/uL (1.5-8.5); NEUTROPHILS % 64.2 % (36.0-66.0); PLATELET COUNT, AUTOMATED 239 10^3/uL (150-450); RED BLOOD COUNT 3.67 10^6/uL (4.30-6.10); WHITE BLOOD COUNT 7.3 10^3/uL (4.0-10.0)
[2021-11-05 06:53] LABS: ALBUMIN 2.7 GM/DL (3.2-5.2); BILIRUBIN,TOTAL 0.3 MG/DL (0.2-1.0); CALCIUM LEVEL 8.8 MG/DL (8.8-10.2); CREATININE FOR GFR 1.32 MG/DL (0.70-1.30); GLOMERULAR FILTRATION RATE 55.4 (>35); MAGNESIUM LEVEL 2.2 MG/DL (1.8-2.4); POTASSIUM SERUM 3.6 MEQ/L (3.5-5.1); TOTAL PROTEIN 6.5 GM/DL (6.4-8.2)
[2021-11-05] MEDS: DOCUSATE SODIUM 100MG CAPSULE PO SCH (07:45)
[2021-11-05] MEDS: BENZONATATE 100MG CAPSULE PO SCH ×2 (08:25→16:16)
[2021-11-05] MEDS: predniSONE 20 MG TAB PO SCH (08:25)
[2021-11-05] MEDS: HumaLOG INSULIN (NovoLOG) PER UNIT SC SCH ×2 (08:25→12:10)
[2021-11-05] MEDS: FAMOTIDINE 20 MG TAB PO SCH (08:25)
[2021-11-05] MEDS: amLODIPine 5 MG TAB PO SCH (08:26)
[2021-11-05] MEDS ORDERED: guaiFENesin ER 600 MG TAB PO SCH (09:00)
[2021-11-05 12:10] VITALS: BP 150/70
[2021-11-05] MEDS ORDERED: CHLO125TA PO (15:06)
[2021-11-05] MEDS ORDERED: MUCI600T31 PO (15:06)
[2021-11-05] MEDS ORDERED: HYDR-3910 PO (15:06)
[2021-11-05] MEDS ORDERED: POTA1TAB14 PO (15:06)
[2021-11-05] MEDS ORDERED: PRED10TA2 PO (15:06)
[2021-11-05] MEDS ORDERED: AMLO1TAB24 PO (15:06)
[2021-11-05] MEDS ORDERED: BENZ-18 PO (15:06)
== END 2021-11-05 18:15 | disposition home health service (06) | DRG 137 ==
LOC: M ED 17:58 → M ED INP 23:23 → ENRESERV 10-31 12:36 → M 4MAIN 10-31 15:36
PROVIDERS: ADMIT Family Medicine; ATTEND Family Medicine
PROC: XW033E5 Introduction of Remdesivir Anti-infective into Peripheral Vein, Percutaneous Approach, New Technology Group 5 (ICD-10-PCS; principal; 2021-10-30)
PROC: 3E0333Z Introduction of Anti-inflammatory into Peripheral Vein, Percutaneous Approach (ICD-10-PCS; 2021-10-31)
DX: U07.1 COVID-19 (principal); N17.9 Acute kidney failure, unspecified; R31.29 Other microscopic hematuria; E11.9 Type 2 diabetes mellitus without complications; I12.9 Hypertensive chronic kidney disease with stage 1 through stage 4 chronic kidney disease, or unspecified chronic kidney disease; N18.9 Chronic kidney disease, unspecified; Z79.899 Other long term (current) drug therapy; I16.0 Hypertensive urgency

== ENCOUNTER 2021-11-12 15:49 | Inpatient (IN) | payer OTHER ==
[~2021-11-12] VITALS: Ht 175.3 cm; Wt 90.2 kg
[~2021-11-12 15:49] MED LIST changes: -CHLO25TA PO; -JARD1TAB PO
[2021-11-12 17:10] LABS: BASO % 0.2 % (0.0-1.0); EOS % 0.1 % (0.0-3.0); HEMATOCRIT 39.1 % (42.0-52.0); HEMOGLOBIN 12.9 g/dl (13.5-17.5); LYMPH # 0.8 10^3/uL (1.5-5.0); MEAN CORPUSCULAR HEMOGLOBIN 30.6 pg (27.0-33.0); MEAN CORPUSCULAR VOLUME 92.9 fl (80.0-96.0); MONO # 0.6 10^3/uL (0.0-0.8); MONO % 4.2 % (2.0-8.0); NEUTROPHILS # 11.6 10^3/uL (1.5-8.5); NEUTROPHILS % 88.6 % (36.0-66.0); PLATELET COUNT, AUTOMATED 137 10^3/uL (150-450); RED BLOOD COUNT 4.21 10^6/uL (4.30-6.10); VENOUS BASE EXCESS -6.1 (-2.0-2.0); VENOUS HCO3 19.4 MEQ/L (23.0-27.0); VENOUS O2 SATURATION 84.4 % (60.0-80.0); VENOUS PARTIAL PRESSURE CO2 38.3 mmHg (38.0-50.0); VENOUS PARTIAL PRESSURE O2 51.3 mmHg (30.0-50.0); VENOUS PH 7.322 UNITS (7.330-7.430); VENOUS STANDARD HCO3 19.2 MEQ/L; VENOUS TOTAL CO2 20.6 MEQ/L (24.0-28.0); WHITE BLOOD COUNT 13.1 10^3/uL (4.0-10.0)
[2021-11-12 17:45] LABS: HEMOGLOBIN A1c 8.4 %
[2021-11-12 18:26] LABS: ACETONE/KETONE 1.08 MG/DL (<2.81); ALBUMIN 3.3 GM/DL (3.2-5.2); BILIRUBIN,DIRECT 0.1 MG/DL (0.0-0.2); BILIRUBIN,TOTAL 0.5 MG/DL (0.2-1.0); CALCIUM LEVEL 9.4 MG/DL (8.8-10.2); CREATININE FOR GFR 2.25 MG/DL (0.70-1.30); GLOMERULAR FILTRATION RATE 29.9 (>35); MAGNESIUM LEVEL 2.6 MG/DL (1.8-2.4); POTASSIUM SERUM 6.5 MEQ/L (3.5-5.1); TOTAL PROTEIN 7.2 GM/DL (6.4-8.2)
[2021-11-12] MEDS ORDERED: HumuLIN R (REGULAR) INSULIN (NovoLIN R) **100U/ML** PER UNIT IV ONE (18:35)
[2021-11-12] MEDS ORDERED: SODIUM BICARBONATE 8.4% INJ 50 ML SYRINGE IV ONE (18:35)
[2021-11-12] MEDS ORDERED: INSULIN REGULAR IN 0.9 % NACL 100 UNIT in IV 1 EA IV SCH ×6 (18:35→21:00)
[2021-11-12] MEDS ORDERED: NS 1,000 ML IV ONE (18:35)
[2021-11-12] MEDS ORDERED: INSULIN IV RATE CHANGE DOCUMENTATION ML/HR XX SCH ×2 (18:35→20:10)
[2021-11-12] MEDS ORDERED: CALCIUM CHLORIDE 10% 1 GM/10 ML SYR IV ONE (18:35)
[2021-11-12] MEDS ORDERED: PATIROMER SORBITEX CALCIUM 8.4 GM POWDER PACKET (VELTASSA) PO ONE (18:35)
[2021-11-12] MEDS ORDERED: JARD1TAB PO (19:05)
[2021-11-12] MEDS: NS 1,000 ML IV SCH (20:05)
[2021-11-12] MEDS ORDERED: MOM 30ML SUSPENSION UDC PO PRN (20:10)
[2021-11-12] MEDS ORDERED: ACETAMINOPHEN TAB 650MG DOSE (2X325MG) PO PRN (20:10)
[2021-11-12] MEDS ORDERED: POTA1TAB14 PO (20:18)
[2021-11-12] MEDS ORDERED: CHLO25TA PO (20:18)
[2021-11-12] MEDS ORDERED: PRED10TA2 PO (20:18)
[2021-11-12] MEDS ORDERED: HYDR-3910 PO (20:18)
[2021-11-12] MEDS ORDERED: HOME MED LIST COMPLETE! XX SCH (20:20)
[2021-11-12 21:45] VITALS: BP 173/71
[2021-11-12 22:00] VITALS: BP 184/84
[2021-11-12] MEDS: **hydrALAZINE HCL** 25 MG TAB PO SCH (22:00)
[2021-11-12] MEDS: INSULIN IV RATE CHANGE DOCUMENTATION ML/HR XX SCH ×2 (22:01→23:58)
[2021-11-12 22:05] VITALS: BP 173/71
[2021-11-12 22:07] LABS: ACETONE/KETONE 0.57 MG/DL (<2.81); CALCIUM LEVEL 9.2 MG/DL (8.8-10.2); CREATININE FOR GFR 1.95 MG/DL (0.70-1.30); GLOMERULAR FILTRATION RATE 35.3 (>35); POTASSIUM SERUM 4.7 MEQ/L (3.5-5.1)
[2021-11-12] MEDS ORDERED: IPRATROPIUM 0.5MG/ALBUTEROL 2.5MG INH SOL UD 3ML (DUONEB) NEB ONE (22:25)
[2021-11-12] MEDS ORDERED: PILL CUTTER 1 EACH XX PRN (22:40)
[2021-11-12 23:00] VITALS: BP 158/86
[2021-11-12] MEDS: FAMOTIDINE 20 MG TAB PO SCH (23:43)
[2021-11-12] MEDS: DOCUSATE SODIUM 100MG CAPSULE PO SCH (23:43)
[2021-11-13] VITALS (11 sets, daily range): BP systolic 116–180; BP diastolic 55–77
[2021-11-13] MEDS: NS 1,000 ML IV SCH (00:05)
[2021-11-13] MEDS ORDERED: GLUCAGON INJ 1MG VIAL SC PRN (01:00)
[2021-11-13] MEDS ORDERED: DEXTROSE 50% 50 ML SYRINGE IV PRN (01:00)
[2021-11-13] MEDS ORDERED: GLUCOSE 4GM CHEW TABLET PO PRN (01:00)
[2021-11-13] MEDS: INSULIN IV RATE CHANGE DOCUMENTATION ML/HR XX SCH ×2 (01:03→03:05)
[2021-11-13] MEDS ORDERED: LEVEMIR (INSULIN DETEMIR) 1 UNITS/0.01ML SC ONE (01:15)
[2021-11-13 02:10] LABS: VENOUS BASE EXCESS -1.4 (-2.0-2.0); VENOUS HCO3 19.7 MEQ/L (23.0-27.0); VENOUS O2 SATURATION 99.2 % (60.0-80.0); VENOUS PARTIAL PRESSURE CO2 23.9 mmHg (38.0-50.0); VENOUS PARTIAL PRESSURE O2 215.4 mmHg (30.0-50.0); VENOUS PH 7.535 UNITS (7.330-7.430); VENOUS STANDARD HCO3 23.4 MEQ/L; VENOUS TOTAL CO2 20.5 MEQ/L (24.0-28.0)
[2021-11-13 02:57] LABS: CALCIUM LEVEL 9.4 MG/DL (8.8-10.2); CREATININE FOR GFR 1.68 MG/DL (0.70-1.30); MAGNESIUM LEVEL 2.4 MG/DL (1.8-2.4); PHOSPHORUS LEVEL 3.6 MG/DL (2.5-4.9); POTASSIUM SERUM 4.7 MEQ/L (3.5-5.1)
[2021-11-13 04:09] LABS: VENOUS HCO3 20.9 MEQ/L (23.0-27.0); VENOUS O2 SATURATION 98.3 % (60.0-80.0); VENOUS PARTIAL PRESSURE CO2 37.5 mmHg (38.0-50.0); VENOUS PARTIAL PRESSURE O2 120.3 mmHg (30.0-50.0); VENOUS PH 7.364 UNITS (7.330-7.430); VENOUS STANDARD HCO3 21.2 MEQ/L; VENOUS TOTAL CO2 22.1 MEQ/L (24.0-28.0)
[2021-11-13 04:34] LABS: CALCIUM LEVEL 9.1 MG/DL (8.8-10.2); CREATININE FOR GFR 1.66 MG/DL (0.70-1.30); GLOMERULAR FILTRATION RATE 42.5 (>35); POTASSIUM SERUM 4.1 MEQ/L (3.5-5.1)
[2021-11-13 04:49] LABS: VENOUS BASE EXCESS -2.5 (-2.0-2.0); VENOUS HCO3 22.6 MEQ/L (23.0-27.0); VENOUS PARTIAL PRESSURE CO2 40.2 mmHg (38.0-50.0); VENOUS PARTIAL PRESSURE O2 34.3 mmHg (30.0-50.0); VENOUS PH 7.367 UNITS (7.330-7.430); VENOUS STANDARD HCO3 21.7 MEQ/L; VENOUS TOTAL CO2 23.8 MEQ/L (24.0-28.0)
[2021-11-13 05:19] LABS: CALCIUM LEVEL 9.2 MG/DL (8.8-10.2); CREATININE FOR GFR 1.69 MG/DL (0.70-1.30); GLOMERULAR FILTRATION RATE 41.7 (>35); POTASSIUM SERUM 4.2 MEQ/L (3.5-5.1)
[2021-11-13 05:20] LABS: CALCIUM LEVEL 9.6 MG/DL (8.8-10.2); CREATININE FOR GFR 1.64 MG/DL (0.70-1.30); GLOMERULAR FILTRATION RATE 43.1 (>35); MAGNESIUM LEVEL 2.4 MG/DL (1.8-2.4); PHOSPHORUS LEVEL 3.2 MG/DL (2.5-4.9); POTASSIUM SERUM 4.2 MEQ/L (3.5-5.1)
[2021-11-13] MEDS: **hydrALAZINE HCL** 25 MG TAB PO SCH (06:08)
[2021-11-13] MEDS: HEPARIN SOD (PORCINE) 5000UNITS/ML 1ML VIAL/SYRINGE SC SCH ×3 (06:09→20:19)
[2021-11-13] MEDS: SITagliptin 50 MG TAB (JANUVIA) PO SCH (08:19)
[2021-11-13] MEDS: amLODIPine 5 MG TAB PO SCH (08:19)
[2021-11-13] MEDS: DOCUSATE SODIUM 100MG CAPSULE PO SCH ×2 (08:19→20:14)
[2021-11-13] MEDS: CHLORTHALIDONE 25 MG TAB PO SCH (08:19)
[2021-11-13] MEDS: HumaLOG INSULIN (NovoLOG) PER UNIT SC SCH ×3 (08:19→18:09)
[2021-11-13] MEDS: FAMOTIDINE 20 MG TAB PO SCH ×2 (08:20→20:14)
[2021-11-13 08:43] LABS: BASO % 0.1 % (0.0-1.0); EOS # 0.1 10^3/uL (0.0-0.5); EOS % 0.4 % (0.0-3.0); HEMATOCRIT 34.9 % (42.0-52.0); HEMOGLOBIN 11.5 g/dl (13.5-17.5); LYMPH # 2.6 10^3/uL (1.5-5.0); LYMPH % 21.1 % (24.0-44.0); MEAN CORPUSCULAR HEMOGLOBIN 30.3 pg (27.0-33.0); MEAN CORPUSCULAR VOLUME 92.1 fl (80.0-96.0); MONO # 0.6 10^3/uL (0.0-0.8); NEUTROPHILS # 8.8 10^3/uL (1.5-8.5); NEUTROPHILS % 72.9 % (36.0-66.0); PLATELET COUNT, AUTOMATED 112 10^3/uL (150-450); RED BLOOD COUNT 3.79 10^6/uL (4.30-6.10); WHITE BLOOD COUNT 12.1 10^3/uL (4.0-10.0)
[2021-11-13 12:40] LABS: VENOUS BASE EXCESS -1.3 (-2.0-2.0); VENOUS HCO3 24.6 MEQ/L (23.0-27.0); VENOUS O2 SATURATION 84.9 % (60.0-80.0); VENOUS PARTIAL PRESSURE CO2 45.8 mmHg (38.0-50.0); VENOUS PARTIAL PRESSURE O2 51.1 mmHg (30.0-50.0); VENOUS PH 7.348 UNITS (7.330-7.430); VENOUS STANDARD HCO3 23.2 MEQ/L
[2021-11-13 13:08] LABS: CALCIUM LEVEL 9.2 MG/DL (8.8-10.2); CREATININE FOR GFR 1.65 MG/DL (0.70-1.30); GLOMERULAR FILTRATION RATE 42.8 (>35); POTASSIUM SERUM 4.1 MEQ/L (3.5-5.1)
[2021-11-13] MEDS ORDERED: HumaLOG INSULIN (NovoLOG) PER UNIT SC SCH (21:00)
[2021-11-14] MEDS: HEPARIN SOD (PORCINE) 5000UNITS/ML 1ML VIAL/SYRINGE SC SCH (05:28)
[2021-11-14 06:00] VITALS: BP 127/58
[2021-11-14] MEDS: DOCUSATE SODIUM 100MG CAPSULE PO SCH (08:14)
[2021-11-14] MEDS: FAMOTIDINE 20 MG TAB PO SCH (08:14)
[2021-11-14] MEDS: CHLORTHALIDONE 25 MG TAB PO SCH (08:14)
[2021-11-14] MEDS: HumaLOG INSULIN (NovoLOG) PER UNIT SC SCH ×2 (08:14→12:33)
[2021-11-14] MEDS: SITagliptin 50 MG TAB (JANUVIA) PO SCH (08:14)
[2021-11-14 08:15] VITALS: BP 144/64
[2021-11-14] MEDS: amLODIPine 5 MG TAB PO SCH (08:15)
[2021-11-14 08:53] LABS: HEMATOCRIT 33.4 % (42.0-52.0); HEMOGLOBIN 11.4 g/dl (13.5-17.5); MEAN CORPUSCULAR HEMOGLOBIN 31.6 pg (27.0-33.0); MEAN CORPUSCULAR HGB CONC 34.1 g/dl (32.0-36.5); MEAN CORPUSCULAR VOLUME 92.5 fl (80.0-96.0); PLATELET COUNT, AUTOMATED 106 10^3/uL (150-450); RED BLOOD COUNT 3.61 10^6/uL (4.30-6.10); WHITE BLOOD COUNT 7.6 10^3/uL (4.0-10.0)
[2021-11-14 09:22] LABS: CALCIUM LEVEL 9.2 MG/DL (8.8-10.2); CREATININE FOR GFR 1.65 MG/DL (0.70-1.30); GLOMERULAR FILTRATION RATE 42.8 (>35); MAGNESIUM LEVEL 2.3 MG/DL (1.8-2.4); POTASSIUM SERUM 4.4 MEQ/L (3.5-5.1)
== END 2021-11-14 14:35 | disposition home or self-care (01) | DRG 638 ==
LOC: M ED 15:49 → M ED INP 20:08 → M ICU 21:43 → M MSPAV 11-13 16:21
PROVIDERS: ADMIT Family Medicine; ATTEND Family Medicine
DX: E11.00 Type 2 diabetes mellitus with hyperosmolarity without nonketotic hyperglycemic-hyperosmolar coma (NKHHC) (principal); N17.9 Acute kidney failure, unspecified; E87.0 Hyperosmolality and hypernatremia; N18.9 Chronic kidney disease, unspecified; I12.9 Hypertensive chronic kidney disease with stage 1 through stage 4 chronic kidney disease, or unspecified chronic kidney disease; E11.22 Type 2 diabetes mellitus with diabetic chronic kidney disease; E86.0 Dehydration; E87.5 Hyperkalemia; Z79.899 Other long term (current) drug therapy; Z86.16 Personal history of COVID-19

== ENCOUNTER → 2021-11-12 | Outpatient (REF) | payer OTHER ==
[~2021-11-12] MED LIST changes: +BENZ-18 PO; +CHLO125TA PO; +CHLO25TA PO; +FAMO20TA4 PO; +HYDR-3910 PO; +JARD1TAB PO; +MUCI600T31 PO; +POTA1TAB14 PO; +PRED10TA2 PO
== END ==
LOC: M LAB REF 16:12
PROVIDERS: ATTEND Internal Medicine
DX: N18.30 Chronic kidney disease, stage 3 unspecified (principal)

== ENCOUNTER 2022-03-07 16:58 | Emergency (ER) | payer OTHER ==
[~2022-03-07] VITALS: Ht 175.3 cm; Wt 85.9 kg
[~2022-03-07 16:58] MED LIST changes: +CHLO25TA PO; +JARD1TAB PO
[2022-03-07 18:19] LABS: RSV AMPLIFICATION NEGATIVE (NEGATIVE)
[2022-03-07 19:37] LABS: HEMOGLOBIN 12.6 g/dl (13.5-17.5); MEAN CORPUSCULAR HEMOGLOBIN 30.8 pg (27.0-33.0); MEAN CORPUSCULAR HGB CONC 32.3 g/dl (32.0-36.5); MEAN CORPUSCULAR VOLUME 95.4 fl (80.0-96.0); PLATELET COUNT, AUTOMATED 180 10^3/uL (150-450); RED BLOOD COUNT 4.09 10^6/uL (4.30-6.10); WHITE BLOOD COUNT 5.3 10^3/uL (4.0-10.0)
[2022-03-07 20:05] LABS: ALBUMIN 3.7 GM/DL (3.2-5.2); BILIRUBIN,TOTAL 0.2 MG/DL (0.2-1.0); CREATININE FOR GFR 1.91 MG/DL (0.70-1.30); GLOMERULAR FILTRATION RATE 36.1 (>35); POTASSIUM SERUM 4.2 MEQ/L (3.5-5.1); TOTAL PROTEIN 7.6 GM/DL (6.4-8.2)
[2022-03-07] MEDS ORDERED: NS 1,000 ML IV ONE (20:35)
[2022-03-07 21:39] VITALS: BP 143/68
== END 2022-03-07 21:58 | disposition home or self-care (01) ==
LOC: M ED 16:58
DX: G44.209 Tension-type headache, unspecified, not intractable (principal); E86.0 Dehydration; E11.9 Type 2 diabetes mellitus without complications; I10 Essential (primary) hypertension; E78.5 Hyperlipidemia, unspecified; Z87.442 Personal history of urinary calculi; Z86.16 Personal history of COVID-19; Z79.84 Long term (current) use of oral hypoglycemic drugs; Z79.899 Other long term (current) drug therapy

== ENCOUNTER 2022-03-10 23:16 | Emergency (ER) | payer MEDICARE, OTHER ==
[~2022-03-10] VITALS: Ht 175.3 cm; Wt 86.4 kg
[2022-03-10 23:45] LABS: BASO # 0.1 10^3/uL (0.0-0.2); BASO % 1.4 % (0.0-1.0); EOS # 0.5 10^3/uL (0.0-0.5); EOS % 6.4 % (0.0-3.0); HEMATOCRIT 41.9 % (42.0-52.0); HEMOGLOBIN 13.5 g/dl (13.5-17.5); LYMPH # 2.6 10^3/uL (1.5-5.0); LYMPH % 36.7 % (24.0-44.0); MEAN CORPUSCULAR HEMOGLOBIN 30.5 pg (27.0-33.0); MEAN CORPUSCULAR HGB CONC 32.2 g/dl (32.0-36.5); MEAN CORPUSCULAR VOLUME 94.6 fl (80.0-96.0); MONO # 0.5 10^3/uL (0.0-0.8); MONO % 7.1 % (2.0-8.0); NEUTROPHILS # 3.4 10^3/uL (1.5-8.5); NEUTROPHILS % 48.1 % (36.0-66.0); PLATELET COUNT, AUTOMATED 191 10^3/uL (150-450); RED BLOOD COUNT 4.43 10^6/uL (4.30-6.10); WHITE BLOOD COUNT 7.1 10^3/uL (4.0-10.0)
[2022-03-10] MEDS ORDERED: ONDANSETRON 4MG 2ML VIAL As Ordered ONE (23:47)
[2022-03-10] MEDS ORDERED: ONDANSETRON 4MG 2ML VIAL IV ONE (23:50)
[2022-03-10 23:56] LABS: INR 0.99; PROTHROMBIN TIME 13.5 SECONDS (12.7-14.5)
[2022-03-11] MEDS ORDERED: METOCLOPRAMIDE INJ 10MG/2ML VIAL (J2765 PER 1) IV ONE (00:15)
[2022-03-11] MEDS ORDERED: KETOROLAC 30 MG/ML 1ML VIAL IV ONE (00:15)
[2022-03-11] MEDS ORDERED: diphenhydrAMINE 50MG/ML VIAL (J1200) IV ONE (00:15)
[2022-03-11] MEDS ORDERED: NS 1,000 ML IV ONE (00:15)
[2022-03-11 00:25] LABS: ALBUMIN 3.8 GM/DL (3.2-5.2); ALT/SGPT 16 U/L (12-78); AMYLASE 33 U/L (25-115); BILIRUBIN,DIRECT < 0.1 MG/DL (0.0-0.2); BILIRUBIN,TOTAL 0.4 MG/DL (0.2-1.0); BLOOD UREA NITROGEN 19 MG/DL (7-18); CALCIUM LEVEL 9.3 MG/DL (8.8-10.2); CARBON DIOXIDE LEVEL 16 MEQ/L (21-32); CHLORIDE LEVEL 108 MEQ/L (98-107); GLOMERULAR FILTRATION RATE 38.6 (>35); GLUCOSE, FASTING 253 MG/DL (70-100); LIPASE 139 U/L (73-393); POTASSIUM SERUM 4.2 MEQ/L (3.5-5.1); SODIUM LEVEL 139 MEQ/L (136-145); TOTAL PROTEIN 7.7 GM/DL (6.4-8.2)
[2022-03-11 00:26] LABS: MB/CK RELATIVE INDEX 2.6 (< OR =4)
[2022-03-11 03:15] VITALS: BP 153/69
== END 2022-03-11 03:32 | disposition home or self-care (01) ==
LOC: EDBD 23:16 → M ED 23:16
DX: G43.909 Migraine, unspecified, not intractable, without status migrainosus (principal); E11.9 Type 2 diabetes mellitus without complications; I10 Essential (primary) hypertension; Z79.4 Long term (current) use of insulin; Z79.899 Other long term (current) drug therapy
CPT/HCPCS: 70450; 80048; 80076; 82150; 82550; 82553; 83690; 84484; 85025; 85610; 87486; 87581; 87633; 87798; 93005; 93041; 96361; 96374; 96375; 99285; J1200; J1885; J2405; J2765

== ENCOUNTER → 2022-04-07 | Outpatient (CLI) | payer MEDICARE, OTHER ==
[~2022-04-07] MED LIST changes: +GLIM1TAB4 PO; +JARD1TAB3 PO
== END ==
LOC: M LABSMTC 10:52
PROVIDERS: ATTEND Anesthesiology
DX: Z01.812 Encounter for preprocedural laboratory examination (principal); Z20.822 Contact with and (suspected) exposure to COVID-19

== ENCOUNTER 2022-04-10 06:25 | Day surgery (SDC) | payer MEDICARE, OTHER ==
[~2022-04-10] VITALS: Ht 175.3 cm; Wt 90.7 kg
[~2022-04-10 06:25] MED LIST changes: +BSS IRRIG/VANCO(10MG)/TOBRA(5MG)/EPINEPH(1:1000-0.5CC)500ML BAG-ORONLY IR ONE; +CYCLOPENTOLATE 1% OPHTH SOLN 2 ML BTL OD SCH; +LIDOCAINE 3.5 % 1ML OPHTH TOPICAL GEL OU ONE; +OFLOXACIN 0.3 % (OCUFLOX) OPTH SOL 5ML OD ONE; +PHENYLEPHRINE 2.5% OPHTH SOL 2ML OD SCH; +PHENYLEPHRINE HCL 10 % OPHTH. SOL 5ML OD PRN; +TROPICAMIDE 1% OPHTH SOLN 2ML OD SCH
[2022-04-10] MEDS ORDERED: LIDOCAINE 1% SDV 5ML VIAL As Ordered ONE (06:50)
[2022-04-10] MEDS ORDERED: CEFUROXIME 1MG/0.1ML INTRACAMERAL INJ As Ordered ONE (06:51)
[2022-04-10] MEDS ORDERED: fentaNYL 100 MCG/2 ML INJECTION As Ordered ONE (09:13)
[2022-04-10] MEDS ORDERED: MIDAZOLAM INJ 2MG/2ML VIAL (J2250 PER 1MG) As Ordered ONE (09:13)
[2022-04-10 09:20] VITALS: BP 148/67
== END 2022-04-10 09:55 | disposition home or self-care (01) ==
LOC: M SDC 06:25
PROVIDERS: ATTEND Ophthalmology
DX: H25.11 Age-related nuclear cataract, right eye (principal); I10 Essential (primary) hypertension; E11.9 Type 2 diabetes mellitus without complications; K21.9 Gastro-esophageal reflux disease without esophagitis; R51.9 Headache, unspecified; Z79.84 Long term (current) use of oral hypoglycemic drugs; Z79.899 Other long term (current) drug therapy; N18.9 Chronic kidney disease, unspecified
CPT/HCPCS: 66984; J0697; J2250; J3010; V2632

== ENCOUNTER → 2022-04-22 | Outpatient (CLI) | payer MEDICARE, OTHER ==
[~2022-04-22] MED LIST changes: -BSS IRRIG/VANCO(10MG)/TOBRA(5MG)/EPINEPH(1:1000-0.5CC)500ML BAG-ORONLY IR ONE; -CYCLOPENTOLATE 1% OPHTH SOLN 2 ML BTL OD SCH; -LIDOCAINE 3.5 % 1ML OPHTH TOPICAL GEL OU ONE; -OFLOXACIN 0.3 % (OCUFLOX) OPTH SOL 5ML OD ONE; -PHENYLEPHRINE 2.5% OPHTH SOL 2ML OD SCH; -PHENYLEPHRINE HCL 10 % OPHTH. SOL 5ML OD PRN; -TROPICAMIDE 1% OPHTH SOLN 2ML OD SCH
== END ==
LOC: M LABSMTC 09:59
PROVIDERS: ATTEND Anesthesiology
DX: Z01.812 Encounter for preprocedural laboratory examination (principal); Z20.822 Contact with and (suspected) exposure to COVID-19

== ENCOUNTER → 2022-04-24 | Day surgery (SDC) | payer MEDICARE, OTHER ==
[~2022-04-24] VITALS: Ht 165.1 cm; Wt 89.7 kg
[~2022-04-24] MED LIST changes: +BSS IRRIG/VANCO(10MG)/TOBRA(5MG)/EPINEPH(1:1000-0.5CC)500ML BAG-ORONLY IR ONE; +CEFUROXIME 1MG/0.1ML INTRACAMERAL INJ As Ordered ONE; +CYCLOPENTOLATE 1% OPHTH SOLN 2 ML BTL OS SCH; +LIDOCAINE 1% SDV 5ML VIAL As Ordered ONE; +LIDOCAINE 3.5 % 1ML OPHTH TOPICAL GEL OU ONE; +MIDAZOLAM INJ 2MG/2ML VIAL (J2250 PER 1MG) As Ordered ONE; +OFLOXACIN 0.3 % (OCUFLOX) OPTH SOL 5ML OS ONE; +PHENYLEPHRINE 2.5% OPHTH SOL 2ML OS SCH; +PHENYLEPHRINE HCL 10 % OPHTH. SOL 5ML OS PRN; +TROPICAMIDE 1% OPHTH SOLN 2ML OS SCH; +fentaNYL 100 MCG/2 ML INJECTION As Ordered ONE
[2022-04-24 13:50] VITALS: BP 132/70
== END | disposition home or self-care (01) ==
LOC: M SDC 10:08
PROVIDERS: ATTEND Ophthalmology
DX: H25.12 Age-related nuclear cataract, left eye (principal); K21.9 Gastro-esophageal reflux disease without esophagitis; I10 Essential (primary) hypertension; E11.9 Type 2 diabetes mellitus without complications; Z79.899 Other long term (current) drug therapy; Z79.84 Long term (current) use of oral hypoglycemic drugs; R51.9 Headache, unspecified
CPT/HCPCS: 66984; J0697; J2250; J3010; V2632

== ENCOUNTER 2022-06-07 19:07 | Emergency (ER) | payer MEDICARE ==
[~2022-06-07] VITALS: Ht 175.3 cm; Wt 88.1 kg
[2022-06-07 19:11] VITALS: BP 159/67
== END 2022-06-07 21:47 | disposition left against medical advice (07) ==
LOC: M ED 19:07
DX: Z53.21 Procedure and treatment not carried out due to patient leaving prior to being seen by health care provider (principal)

== ENCOUNTER → 2022-06-07 | Outpatient (REF) | payer MEDICARE ==
[~2022-06-07] MED LIST changes: -BSS IRRIG/VANCO(10MG)/TOBRA(5MG)/EPINEPH(1:1000-0.5CC)500ML BAG-ORONLY IR ONE; -CEFUROXIME 1MG/0.1ML INTRACAMERAL INJ As Ordered ONE; -CYCLOPENTOLATE 1% OPHTH SOLN 2 ML BTL OS SCH; -LIDOCAINE 1% SDV 5ML VIAL As Ordered ONE; -LIDOCAINE 3.5 % 1ML OPHTH TOPICAL GEL OU ONE; -MIDAZOLAM INJ 2MG/2ML VIAL (J2250 PER 1MG) As Ordered ONE; -OFLOXACIN 0.3 % (OCUFLOX) OPTH SOL 5ML OS ONE; -PHENYLEPHRINE 2.5% OPHTH SOL 2ML OS SCH; -PHENYLEPHRINE HCL 10 % OPHTH. SOL 5ML OS PRN; -TROPICAMIDE 1% OPHTH SOLN 2ML OS SCH; -fentaNYL 100 MCG/2 ML INJECTION As Ordered ONE
== END ==
LOC: M LAB REF 16:58
PROVIDERS: ATTEND Internal Medicine
DX: M54.50 Low back pain, unspecified (principal)

== ENCOUNTER 2022-06-12 16:33 | Emergency (ER) | payer MEDICARE ==
[~2022-06-12] VITALS: Ht 175.3 cm; Wt 87.9 kg
[2022-06-12] MEDS ORDERED: JARD1TAB (16:45)
[2022-06-12 17:52] LABS: BASO # 0.1 10^3/uL (0.0-0.2); BASO % 0.9 % (0.0-1.0); EOS # 0.4 10^3/uL (0.0-0.5); EOS % 6.7 % (0.0-3.0); HEMATOCRIT 38.5 % (42.0-52.0); HEMOGLOBIN 12.6 g/dl (13.5-17.5); LYMPH # 1.9 10^3/uL (1.5-5.0); LYMPH % 28.6 % (24.0-44.0); MEAN CORPUSCULAR HEMOGLOBIN 31.4 pg (27.0-33.0); MEAN CORPUSCULAR HGB CONC 32.7 g/dl (32.0-36.5); MONO # 0.6 10^3/uL (0.0-0.8); MONO % 8.4 % (2.0-8.0); NEUTROPHILS # 3.6 10^3/uL (1.5-8.5); NEUTROPHILS % 55.2 % (36.0-66.0); PLATELET COUNT, AUTOMATED 174 10^3/uL (150-450); RED BLOOD COUNT 4.01 10^6/uL (4.30-6.10); WHITE BLOOD COUNT 6.5 10^3/uL (4.0-10.0)
[2022-06-12 18:16] LABS: ALBUMIN 3.7 G/DL (3.2-5.2); ALKALINE PHOSPHATASE 57 U/L (46-116); ALT/SGPT 10 U/L (7.0-40); AST/SGOT 12 U/L (<34); BILIRUBIN,DIRECT < 0.1 MG/DL (<0.4); BILIRUBIN,TOTAL 0.2 MG/DL (0.3-1.2); BLOOD UREA NITROGEN 30 MG/DL (9-23); CALCIUM LEVEL 9.4 MG/DL (8.3-10.6); CARBON DIOXIDE LEVEL 20 MMOL/L (20-31); CHLORIDE LEVEL 110 MMOL/L (98-107); CREATININE FOR GFR 1.78 MG/DL (0.70-1.30); GLOMERULAR FILTRATION RATE 39.1 (>35); GLUCOSE, FASTING 121 MG/DL (74-106); POTASSIUM SERUM 4.4 MMOL/L (3.5-5.1); SODIUM LEVEL 140 MMOL/L (136-145); TOTAL PROTEIN 7.4 G/DL (5.7-8.2)
[2022-06-12 22:34] VITALS: BP 140/66
== END 2022-06-12 22:49 | disposition home or self-care (01) ==
LOC: M ED 16:33
DX: N20.0 Calculus of kidney (principal); K80.20 Calculus of gallbladder without cholecystitis without obstruction; N18.9 Chronic kidney disease, unspecified; N32.9 Bladder disorder, unspecified; N40.1 Benign prostatic hyperplasia with lower urinary tract symptoms; R31.0 Gross hematuria; R31.29 Other microscopic hematuria; R91.1 Solitary pulmonary nodule; E11.9 Type 2 diabetes mellitus without complications; I10 Essential (primary) hypertension; E78.5 Hyperlipidemia, unspecified; K21.9 Gastro-esophageal reflux disease without esophagitis; N17.9 Acute kidney failure, unspecified; Z87.891 Personal history of nicotine dependence; Z79.899 Other long term (current) drug therapy

== ENCOUNTER → 2022-08-05 | Outpatient (CLI) | payer MEDICARE ==
[~2022-08-05] MED LIST changes: +JARD1TAB
== END ==
LOC: M PLAIMG 10:45
PROVIDERS: ATTEND Internal Medicine
DX: R91.8 Other nonspecific abnormal finding of lung field (principal); K44.9 Diaphragmatic hernia without obstruction or gangrene; N20.0 Calculus of kidney; M47.9 Spondylosis, unspecified

== ENCOUNTER → 2022-08-19 | Outpatient (REF) | payer MEDICARE ==
[2022-08-19 14:41] LABS: APPEARANCE, URINE MANUAL CLEAR (CLEAR); COLOR, URINE MANUAL YELLOW (YELLOW); GLUCOSE, URINE (UA) MANUAL 4+(1000 MG/DL) mg/dL (NEGATIVE); KETONE, URINE MANUAL NEGATIVE (NEGATIVE); PROTEIN, URINE MANUAL NEGATIVE (NEGATIVE)
[2022-08-19 14:42] LABS: BILIRUBIN, URINE MANUAL NEGATIVE (NEGATIVE); BLOOD URINE MANUAL NEGATIVE (NEGATIVE); LEUKOCYTE ESTERASE, URINE MAN NEGATIVE (NEGATIVE); NITRITE, URINE MANUAL NEGATIVE (NEGATIVE); UROBILINOGEN, URINE MANUAL NORMAL (NORMAL)
== END ==
LOC: M SMT 12:46
PROVIDERS: ATTEND Physician Assistant
DX: R31.0 Gross hematuria (principal)

== ENCOUNTER → 2022-09-25 | Outpatient (CLI) | payer MEDICARE | LOC: M PLARAD 10:48 | DX: Z53.9 Procedure and treatment not carried out, unspecified reason (principal) ==

== ENCOUNTER → 2022-11-04 | Outpatient (CLI) | payer MEDICARE | LOC: M PLARAD 11:57 | PROVIDERS: ATTEND Internal Medicine | DX: R91.1 Solitary pulmonary nodule (principal); K57.30 Diverticulosis of large intestine without perforation or abscess without bleeding; N20.0 Calculus of kidney; K44.9 Diaphragmatic hernia without obstruction or gangrene | CPT/HCPCS: 78815; A9552 ==

== ENCOUNTER 2023-06-26 09:59 | Emergency (ER) | payer MEDICARE ==
[~2023-06-26] VITALS: Ht 162.6 cm; Wt 85.9 kg
[~2023-06-26 09:59] MED LIST changes: +ONDA4TAB6 PO; +POTA-298 PO; -POTA1TAB14 PO
[2023-06-26 10:09] VITALS: TEMP 97.7
[2023-06-26] MEDS ORDERED: HYDR-3910 (10:31)
[2023-06-26 10:42] LABS: BASO # 0.1 10^3/uL (0.0-0.2); BASO % 1.3 % (0.0-1.0); EOS # 0.6 10^3/uL (0.0-0.5); EOS % 10.6 % (0.0-3.0); HEMATOCRIT 38.2 % (42.0-52.0); HEMOGLOBIN 12.3 g/dl (13.5-17.5); LYMPH # 2.1 10^3/uL (1.5-5.0); LYMPH % 37.2 % (24.0-44.0); MEAN CORPUSCULAR HEMOGLOBIN 31.8 pg (27.0-33.0); MEAN CORPUSCULAR HGB CONC 32.2 g/dl (32.0-36.5); MEAN CORPUSCULAR VOLUME 98.7 fl (80.0-96.0); MONO # 0.6 10^3/uL (0.0-0.8); MONO % 10.2 % (2.0-8.0); NEUTROPHILS # 2.3 10^3/uL (1.5-8.5); NEUTROPHILS % 40.5 % (36.0-66.0); PLATELET COUNT, AUTOMATED 168 10^3/uL (150-450); RED BLOOD COUNT 3.87 10^6/uL (4.30-6.10); WHITE BLOOD COUNT 5.6 10^3/uL (4.0-10.0)
[2023-06-26 11:04] LABS: LIPASE 58 U/L (12-53)
[2023-06-26 11:06] LABS: ALBUMIN 3.6 G/DL (3.2-5.2); ALKALINE PHOSPHATASE 56 U/L (46-116); ALT/SGPT < 9 U/L (7.0-40); AST/SGOT 10 U/L (<34); BILIRUBIN,DIRECT 0.1 MG/DL (<0.4); BILIRUBIN,TOTAL 0.4 MG/DL (0.3-1.2); BLOOD UREA NITROGEN 31 MG/DL (9-23); CARBON DIOXIDE LEVEL 23 MMOL/L (20-31); CHLORIDE LEVEL 111 MMOL/L (98-107); CK-MB VALUE MASS < 1.0 NG/ML (<3.6); CPK CREATINE PHOSPHOKINASE 51 U/L (46-171); CREATININE FOR GFR 1.77 MG/DL (0.70-1.30); GLOMERULAR FILTRATION RATE 39.3 (>35); GLUCOSE, FASTING 109 MG/DL (74-106); MB/CK RELATIVE INDEX 1.96 (< OR =4); SODIUM LEVEL 141 MMOL/L (136-145); TOTAL PROTEIN 7.1 G/DL (5.7-8.2)
[2023-06-26 11:53] LABS: CK-MB VALUE MASS < 1.0 NG/ML (<3.6)
[2023-06-26 12:00] LABS: CPK CREATINE PHOSPHOKINASE 50 U/L (46-171)
[2023-06-26 12:30] VITALS: BP 150/70; O2SAT 94
== END 2023-06-26 13:03 | disposition home or self-care (01) ==
LOC: EDBD 09:59 → M ED 09:59
DX: R53.81 Other malaise (principal); I44.4 Left anterior fascicular block; I49.1 Atrial premature depolarization; E11.9 Type 2 diabetes mellitus without complications; I10 Essential (primary) hypertension; N18.30 Chronic kidney disease, stage 3 unspecified; Z86.79 Personal history of other diseases of the circulatory system; Z79.84 Long term (current) use of oral hypoglycemic drugs; Z79.899 Other long term (current) drug therapy

== ENCOUNTER 2023-07-15 20:54 | Emergency (ER) | payer MEDICARE ==
[~2023-07-15] VITALS: Ht 175.3 cm; Wt 81.8 kg
[~2023-07-15 20:54] MED LIST changes: +HYDR-3910
[2023-07-15 21:15] VITALS: BP 169/75; TEMP 97.8; O2SAT 99
[2023-07-15 21:53] LABS: BASO # 0.1 10^3/uL (0.0-0.2); EOS # 0.4 10^3/uL (0.0-0.5); EOS % 6.4 % (0.0-3.0); HEMATOCRIT 34.2 % (42.0-52.0); HEMOGLOBIN 11.1 g/dl (13.5-17.5); LYMPH # 1.9 10^3/uL (1.5-5.0); MEAN CORPUSCULAR HEMOGLOBIN 32.1 pg (27.0-33.0); MEAN CORPUSCULAR HGB CONC 32.5 g/dl (32.0-36.5); MEAN CORPUSCULAR VOLUME 98.8 fl (80.0-96.0); MONO # 0.6 10^3/uL (0.0-0.8); MONO % 9.5 % (2.0-8.0); NEUTROPHILS # 2.9 10^3/uL (1.5-8.5); NEUTROPHILS % 50.1 % (36.0-66.0); PLATELET COUNT, AUTOMATED 159 10^3/uL (150-450); RED BLOOD COUNT 3.46 10^6/uL (4.30-6.10); WHITE BLOOD COUNT 5.8 10^3/uL (4.0-10.0)
[2023-07-15 22:17] LABS: ETHYL ALCOHOL (ETHANOL) < 0.003 % (0.000-0.010)
[2023-07-15 22:19] LABS: ALKALINE PHOSPHATASE 47 U/L (46-116); ALT/SGPT < 9 U/L (7.0-40); AST/SGOT < 8 U/L (<34); BILIRUBIN,DIRECT 0.1 MG/DL (<0.4); BILIRUBIN,TOTAL 0.2 MG/DL (0.3-1.2); BLOOD UREA NITROGEN 27 MG/DL (9-23); CALCIUM LEVEL 7.7 MG/DL (8.3-10.6); CARBON DIOXIDE LEVEL 21 MMOL/L (20-31); CHLORIDE LEVEL 115 MMOL/L (98-107); CREATININE FOR GFR 1.44 MG/DL (0.70-1.30); GLOMERULAR FILTRATION RATE 49.9 (>35); GLUCOSE, FASTING 105 MG/DL (74-106); POTASSIUM SERUM 3.6 MMOL/L (3.5-5.1); SODIUM LEVEL 142 MMOL/L (136-145); TOTAL PROTEIN 5.9 G/DL (5.7-8.2)
== END 2023-07-15 23:41 | disposition home or self-care (01) ==
LOC: M ED 20:54
DX: R53.81 Other malaise (principal); N18.30 Chronic kidney disease, stage 3 unspecified; E11.9 Type 2 diabetes mellitus without complications; F10.10 Alcohol abuse, uncomplicated; Z86.16 Personal history of COVID-19; Z79.899 Other long term (current) drug therapy

== ENCOUNTER 2023-08-05 23:16 | Inpatient (IN) | payer MEDICARE ==
[~2023-08-05] VITALS: Ht 175.3 cm; Wt 82.6 kg
[2023-08-06] MEDS: IPRATROPIUM 0.5MG/ALBUTEROL 2.5MG INH SOL UD 3ML (DUONEB) NEB SCH ×3 (00:15→00:55)
[2023-08-06] MEDS ORDERED: dexAMETHasone 20MG/5ML VIAL IV ONE (00:20)
[2023-08-06 00:24] LABS: EOS # 0.2 10^3/uL (0.0-0.5); EOS % 4.3 % (0.0-3.0); HEMOGLOBIN 11.9 g/dl (13.5-17.5); MEAN CORPUSCULAR HEMOGLOBIN 31.1 pg (27.0-33.0); MEAN CORPUSCULAR HGB CONC 32.2 g/dl (32.0-36.5); MEAN CORPUSCULAR VOLUME 96.6 fl (80.0-96.0); MONO # 0.5 10^3/uL (0.0-0.8); MONO % 11.2 % (2.0-8.0); NEUTROPHILS # 1.5 10^3/uL (1.5-8.5); NEUTROPHILS % 36.3 % (36.0-66.0); PLATELET COUNT, AUTOMATED 194 10^3/uL (150-450); RED BLOOD COUNT 3.83 10^6/uL (4.30-6.10); WHITE BLOOD COUNT 4.2 10^3/uL (4.0-10.0)
[2023-08-06 00:37] LABS: CALCIUM LEVEL 8.7 MG/DL (8.3-10.6); CREATININE FOR GFR 1.91 MG/DL (0.70-1.30); POTASSIUM SERUM 4.1 MMOL/L (3.5-5.1)
[2023-08-06 00:46] LABS: ABG BASE EXCESS -5.7 (-2.0-2.0); ABG HCO3 19.2 MMOL/L (22.0-26.0); ABG O2 SATURATION 97.8 % (95.0-99.0); ABG PARTIAL PRESSURE CO2 35.4 mmHg (35.0-45.0); ABG PARTIAL PRESSURE O2 103.1 mmHg (75.0-100.0); ABG STANDARD HCO3 19.8 MMOL/L. (22.0-26.0); ABG TOTAL CO2 20.3 MMOL/L (23.0-31.0); ABG pH (ARTERIAL) 7.352 UNITS (7.350-7.450)
[2023-08-06] MEDS ORDERED: COMBIVENT RESPIMAT 100-20MCG INHALER 4GM INH STA (01:17)
[2023-08-06] MEDS ORDERED: MOM 30ML SUSPENSION UDC PO PRN (03:05)
[2023-08-06] MEDS ORDERED: GLUCAGON INJ 1MG VIAL SC PRN (03:05)
[2023-08-06] MEDS ORDERED: GLUCOSE 4GM CHEW TABLET PO PRN (03:05)
[2023-08-06] MEDS ORDERED: DEXTROSE 50% 50ML SYRINGE IV PRN (03:05)
[2023-08-06] MEDS ORDERED: hydrALAZINE 20MG/ML 1ML VIAL IV PRN (03:10)
[2023-08-06] MEDS ORDERED: JARD1TAB PO (06:01)
[2023-08-06] MEDS ORDERED: HOME MED LIST COMPLETE! XX SCH (06:05)
[2023-08-06] MEDS: HEPARIN SOD (PORCINE) 5000UNITS/ML 1ML VIAL/SYRINGE SC SCH ×3 (06:34→21:31)
[2023-08-06 07:30] VITALS: BP 120/74
[2023-08-06] MEDS: INSULIN LISPRO (NovoLOG) PER UNIT SC SCH ×4 (07:30→21:00)
[2023-08-06 07:41] LABS: HEMATOCRIT 35.2 % (42.0-52.0); HEMOGLOBIN 11.5 g/dl (13.5-17.5); MEAN CORPUSCULAR HEMOGLOBIN 31.1 pg (27.0-33.0); MEAN CORPUSCULAR HGB CONC 32.7 g/dl (32.0-36.5); MEAN CORPUSCULAR VOLUME 95.1 fl (80.0-96.0); PLATELET COUNT, AUTOMATED 193 10^3/uL (150-450); WHITE BLOOD COUNT 3.1 10^3/uL (4.0-10.0)
[2023-08-06] MEDS: DOCUSATE SODIUM 100MG CAPSULE PO SCH ×2 (08:00→21:29)
[2023-08-06 08:07] LABS: ALBUMIN 3.4 G/DL (3.2-5.2); BILIRUBIN,TOTAL 0.2 MG/DL (0.3-1.2); CALCIUM LEVEL 8.9 MG/DL (8.3-10.6); CREATININE FOR GFR 1.71 MG/DL (0.70-1.30); GLOMERULAR FILTRATION RATE 40.9 (>35); POTASSIUM SERUM 3.7 MMOL/L (3.5-5.1); TOTAL PROTEIN 6.9 G/DL (5.7-8.2)
[2023-08-06] MEDS ORDERED: **hydrALAZINE** 10 MG TAB PO SCH (09:00)
[2023-08-06 09:53] VITALS: BP 191/91; TEMP 97.3; O2SAT 98
[2023-08-06 11:00] VITALS: BP 153/68
[2023-08-06] MEDS: SODIUM BICARBONATE 325 MG TAB PO SCH ×2 (12:41→21:29)
[2023-08-06 12:49] LABS: CALCIUM LEVEL 9.1 MG/DL (8.3-10.6); CREATININE FOR GFR 1.66 MG/DL (0.70-1.30); GLOMERULAR FILTRATION RATE 42.3 (>35)
[2023-08-06 12:56] LABS: HEMOGLOBIN A1c 6.2 % (4.0-6.0)
[2023-08-06] MEDS: IPRATROPIUM 0.5MG/ALBUTEROL 2.5MG INH SOL UD 3ML (DUONEB) NEB PRN (13:12)
[2023-08-06 14:00] VITALS: BP 130/61; TEMP 97.9; O2SAT 92
[2023-08-06] MEDS ORDERED: CALCIUM CARBONATE 500 MG CHEW U/D PO PRN (15:00)
[2023-08-06] MEDS ORDERED: FAMOTIDINE 20 MG TAB PO PRN (15:20)
[2023-08-06] MEDS: **hydrALAZINE HCL** 25 MG TAB PO SCH ×2 (16:21→21:29)
[2023-08-06] MEDS: ACETAMINOPHEN TAB 650MG DOSE (2X325MG) PO PRN (18:51)
[2023-08-06 20:11] VITALS: BP 150/68; TEMP 97.7; O2SAT 97
[2023-08-07] MEDS: ACETAMINOPHEN TAB 650MG DOSE (2X325MG) PO PRN ×2 (02:12→17:33)
[2023-08-07] MEDS: guaiFENesin DM LIQ 10ML UD PO PRN (03:01)
[2023-08-07 03:08] VITALS: O2SAT 96
[2023-08-07 04:40] VITALS: BP 174/78; TEMP 97.9; O2SAT 96
[2023-08-07] MEDS: HEPARIN SOD (PORCINE) 5000UNITS/ML 1ML VIAL/SYRINGE SC SCH ×3 (05:57→21:25)
[2023-08-07 06:00] VITALS: BP 148/70
[2023-08-07] MEDS: INSULIN LISPRO (NovoLOG) PER UNIT SC SCH ×4 (07:51→21:00)
[2023-08-07] MEDS: DOCUSATE SODIUM 100MG CAPSULE PO SCH ×2 (07:52→21:25)
[2023-08-07] MEDS: **hydrALAZINE HCL** 25 MG TAB PO SCH (07:52)
[2023-08-07 08:17] LABS: CALCIUM LEVEL 9.3 MG/DL (8.3-10.6); CREATININE FOR GFR 1.65 MG/DL (0.70-1.30); GLOMERULAR FILTRATION RATE 42.6 (>35); MAGNESIUM LEVEL 2.1 MG/DL (1.8-2.4); POTASSIUM SERUM 4.4 MMOL/L (3.5-5.1)
[2023-08-07] MEDS: LIDOCAINE 5% (LIDODERM) PATCH TD SCH (09:28)
[2023-08-07 14:00] VITALS: BP 130/54; TEMP 97.9; O2SAT 96
[2023-08-07] MEDS: **hydrALAZINE** 50 MG TAB PO SCH ×2 (15:33→21:25)
[2023-08-07 20:00] VITALS: BP 127/54; TEMP 98.2; O2SAT 94
[2023-08-08] MEDS: guaiFENesin DM LIQ 10ML UD PO PRN ×2 (03:27→21:29)
[2023-08-08] MEDS: ACETAMINOPHEN TAB 650MG DOSE (2X325MG) PO PRN ×3 (03:27→21:30)
[2023-08-08] MEDS: HEPARIN SOD (PORCINE) 5000UNITS/ML 1ML VIAL/SYRINGE SC SCH ×3 (05:48→21:21)
[2023-08-08 06:00] VITALS: BP 134/56; TEMP 99; O2SAT 91
[2023-08-08 06:26] LABS: CALCIUM LEVEL 8.6 MG/DL (8.3-10.6); CREATININE FOR GFR 1.58 MG/DL (0.70-1.30); GLOMERULAR FILTRATION RATE 44.8 (>35); MAGNESIUM LEVEL 1.9 MG/DL (1.8-2.4); POTASSIUM SERUM 3.8 MMOL/L (3.5-5.1)
[2023-08-08] MEDS: INSULIN LISPRO (NovoLOG) PER UNIT SC SCH ×4 (08:36→20:46)
[2023-08-08] MEDS: LIDOCAINE 5% (LIDODERM) PATCH TD SCH (08:43)
[2023-08-08] MEDS: DOCUSATE SODIUM 100MG CAPSULE PO SCH ×2 (08:43→20:45)
[2023-08-08] MEDS: **hydrALAZINE** 50 MG TAB PO SCH ×3 (08:44→20:46)
[2023-08-08] MEDS: IPRATROPIUM 0.5MG/ALBUTEROL 2.5MG INH SOL UD 3ML (DUONEB) NEB PRN (08:54)
[2023-08-08 14:00] VITALS: BP 129/53; TEMP 98.6; O2SAT 96
[2023-08-08 20:40] VITALS: BP 141/64; TEMP 98.6; O2SAT 93
[2023-08-09 04:43] VITALS: BP 122/54; TEMP 98.6; O2SAT 93
[2023-08-09] MEDS: ACETAMINOPHEN TAB 650MG DOSE (2X325MG) PO PRN ×2 (05:50→13:43)
[2023-08-09] MEDS: guaiFENesin DM LIQ 10ML UD PO PRN ×2 (05:50→13:42)
[2023-08-09] MEDS: HEPARIN SOD (PORCINE) 5000UNITS/ML 1ML VIAL/SYRINGE SC SCH ×3 (05:50→20:24)
[2023-08-09 06:55] LABS: CALCIUM LEVEL 9.1 MG/DL (8.3-10.6); CREATININE FOR GFR 1.54 MG/DL (0.70-1.30); GLOMERULAR FILTRATION RATE 46.2 (>35); MAGNESIUM LEVEL 1.9 MG/DL (1.8-2.4); POTASSIUM SERUM 4.3 MMOL/L (3.5-5.1)
[2023-08-09] MEDS: INSULIN LISPRO (NovoLOG) PER UNIT SC SCH ×4 (08:12→20:24)
[2023-08-09] MEDS: DOCUSATE SODIUM 100MG CAPSULE PO SCH ×2 (08:13→20:24)
[2023-08-09] MEDS: **hydrALAZINE** 50 MG TAB PO SCH ×4 (08:13→20:23)
[2023-08-09] MEDS: LIDOCAINE 5% (LIDODERM) PATCH TD SCH (08:14)
[2023-08-09 14:00] VITALS: BP 127/54; TEMP 98.4; O2SAT 94
[2023-08-09 20:05] VITALS: BP 152/64; TEMP 98.1; O2SAT 90
[2023-08-10 04:49] VITALS: BP 144/66; TEMP 99; O2SAT 93
[2023-08-10 05:11] VITALS: TEMP 97.4
[2023-08-10] MEDS: HEPARIN SOD (PORCINE) 5000UNITS/ML 1ML VIAL/SYRINGE SC SCH (06:00)
[2023-08-10] MEDS: INSULIN LISPRO (NovoLOG) PER UNIT SC SCH ×2 (07:30→12:41)
[2023-08-10] MEDS: DOCUSATE SODIUM 100MG CAPSULE PO SCH (07:32)
[2023-08-10 08:01] VITALS: BP 122/64
[2023-08-10] MEDS: **hydrALAZINE** 50 MG TAB PO SCH (08:01)
[2023-08-10] MEDS: LIDOCAINE 5% (LIDODERM) PATCH TD SCH (08:01)
[2023-08-10] MEDS ORDERED: HYDR50TA46 PO (11:28)
[2023-08-10] MEDS ORDERED: AMLO1TAB25 PO (11:28)
[2023-08-10] MEDS: ACETAMINOPHEN TAB 650MG DOSE (2X325MG) PO PRN (12:41)
== END 2023-08-10 13:49 | disposition home health service (06) | DRG 304 ==
LOC: M ED 23:16 → M ED INP 08-06 03:05 → ENRESERV 08-06 08:16 → M MSPAV 08-06 09:56
PROVIDERS: ADMIT Family Medicine; ATTEND Student in an Organized Health Care Education/Training Program
PROC: 3E0333Z Introduction of Anti-inflammatory into Peripheral Vein, Percutaneous Approach (ICD-10-PCS; principal; 2023-08-06)
DX: I16.0 Hypertensive urgency (principal); U07.1 COVID-19; E11.22 Type 2 diabetes mellitus with diabetic chronic kidney disease; N18.30 Chronic kidney disease, stage 3 unspecified; I12.9 Hypertensive chronic kidney disease with stage 1 through stage 4 chronic kidney disease, or unspecified chronic kidney disease; Z79.899 Other long term (current) drug therapy; Z86.16 Personal history of COVID-19; E11.65 Type 2 diabetes mellitus with hyperglycemia

== ENCOUNTER 2023-08-22 16:40 | Emergency (ER) | payer MEDICARE ==
[~2023-08-22] VITALS: Ht 175.3 cm; Wt 86.8 kg
[~2023-08-22 16:40] MED LIST changes: +AMLO1TAB25 PO; -HYDR-3910; -HYDR-3910 PO; -HYDR25TA PO; +HYDR25TA87; +HYDR25TA87 PO; +HYDR25TA88 PO; +HYDR50TA46 PO
[2023-08-22] MEDS: NITROGLYCERIN 0.4MG SUBL TABLET SL PRN (17:08)
[2023-08-22] MEDS ORDERED: SERT25TA21 (17:20)
[2023-08-22] MEDS: HEPARIN SOD (PORCINE) 5000UNITS/ML 1ML VIAL/SYRINGE IV ONE (17:23)
[2023-08-22] MEDS: HEPARIN DRIP 25,000 UNITS in IV 1 EA IV SCH (17:33)
[2023-08-22 17:40] LABS: ALBUMIN 3.7 G/DL (3.2-5.2); ALKALINE PHOSPHATASE 55 U/L (46-116); ALT/SGPT 26 U/L (7.0-40); AST/SGOT 46 U/L (<34); BILIRUBIN,DIRECT < 0.1 MG/DL (<0.4); BILIRUBIN,TOTAL 0.2 MG/DL (0.3-1.2); CPK CREATINE PHOSPHOKINASE 73 U/L (46-171); LIPASE 58 U/L (12-53); MB/CK RELATIVE INDEX 1.36 (< OR =4); TOTAL PROTEIN 7.6 G/DL (5.7-8.2)
[2023-08-22 17:49] LABS: RSV AMPLIFICATION NEGATIVE (NEGATIVE)
[2023-08-22 18:10] VITALS: BP 141/65; TEMP 97.9; O2SAT 100
[2023-08-22 19:05] LABS: BASO # 0.1 10^3/uL (0.0-0.2); BASO % 0.6 % (0.0-1.0); EOS # 0.2 10^3/uL (0.0-0.5); EOS % 1.8 % (0.0-3.0); HEMATOCRIT 40.8 % (42.0-52.0); LYMPH # 2.1 10^3/uL (1.5-5.0); LYMPH % 18.7 % (24.0-44.0); MEAN CORPUSCULAR HEMOGLOBIN 31.9 pg (27.0-33.0); MEAN CORPUSCULAR HGB CONC 31.9 g/dl (32.0-36.5); MEAN CORPUSCULAR VOLUME 100.2 fl (80.0-96.0); MONO # 0.7 10^3/uL (0.0-0.8); MONO % 6.4 % (2.0-8.0); NEUTROPHILS # 7.9 10^3/uL (1.5-8.5); NEUTROPHILS % 72.1 % (36.0-66.0); RED BLOOD COUNT 4.07 10^6/uL (4.30-6.10)
[2023-08-22 19:06] LABS: PLATELET COUNT, AUTOMATED 126 10^3/uL (150-450)
== END 2023-08-22 18:20 | disposition short-term general hospital (02) ==
LOC: EDBD 16:40 → M ED 16:40
DX: I24.89 Other forms of acute ischemic heart disease (principal); I49.3 Ventricular premature depolarization; I10 Essential (primary) hypertension; E11.9 Type 2 diabetes mellitus without complications; N18.30 Chronic kidney disease, stage 3 unspecified; Z87.891 Personal history of nicotine dependence; Z79.83 Long term (current) use of bisphosphonates; Z79.899 Other long term (current) drug therapy

== ENCOUNTER 2023-09-19 14:06 | Inpatient (IN) | payer MEDICARE ==
[~2023-09-19] VITALS: Ht 175.3 cm; Wt 87.4 kg
[~2023-09-19 14:06] MED LIST changes: +SERT25TA21 PO
[2023-09-19 16:55] LABS: VENOUS HCO3 16.4 MMOL/L (23.0-27.0); VENOUS O2 SATURATION 76.4 % (60.0-80.0); VENOUS PARTIAL PRESSURE CO2 37.9 mmHg (38.0-50.0); VENOUS PH 7.255 UNITS (7.330-7.430); VENOUS STANDARD HCO3 16.2 MMOL/L; VENOUS TOTAL CO2 17.6 MMOL/L (24.0-28.0)
[2023-09-19 17:04] LABS: BASO # 0.1 10^3/uL (0.0-0.2); BASO % 0.9 % (0.0-1.0); EOS # 0.3 10^3/uL (0.0-0.5); EOS % 4.2 % (0.0-3.0); HEMATOCRIT 35.2 % (42.0-52.0); HEMOGLOBIN 11.2 g/dl (13.5-17.5); LYMPH # 1.6 10^3/uL (1.5-5.0); LYMPH % 20.4 % (24.0-44.0); MEAN CORPUSCULAR HEMOGLOBIN 31.4 pg (27.0-33.0); MEAN CORPUSCULAR HGB CONC 31.8 g/dl (32.0-36.5); MEAN CORPUSCULAR VOLUME 98.6 fl (80.0-96.0); MONO # 0.5 10^3/uL (0.0-0.8); MONO % 6.5 % (2.0-8.0); NEUTROPHILS # 5.2 10^3/uL (1.5-8.5); NEUTROPHILS % 67.2 % (36.0-66.0); PLATELET COUNT, AUTOMATED 226 10^3/uL (150-450); RED BLOOD COUNT 3.57 10^6/uL (4.30-6.10); WHITE BLOOD COUNT 7.8 10^3/uL (4.0-10.0)
[2023-09-19 17:26] LABS: ALBUMIN 3.5 G/DL (3.2-5.2); ALKALINE PHOSPHATASE 50 U/L (46-116); ALT/SGPT < 9 U/L (7.0-40); AST/SGOT 16 U/L (<34); BILIRUBIN,DIRECT < 0.1 MG/DL (<0.4); BILIRUBIN,TOTAL 0.2 MG/DL (0.3-1.2); BLOOD UREA NITROGEN 37 MG/DL (9-23); CALCIUM LEVEL 8.6 MG/DL (8.3-10.6); CARBON DIOXIDE LEVEL 20 MMOL/L (20-31); CHLORIDE LEVEL 108 MMOL/L (98-107); GLOMERULAR FILTRATION RATE 41.2 (>35); GLUCOSE, FASTING 132 MG/DL (74-106); POTASSIUM SERUM 4.4 MMOL/L (3.5-5.1); SODIUM LEVEL 137 MMOL/L (136-145); TOTAL PROTEIN 7.1 G/DL (5.7-8.2)
[2023-09-19 17:28] LABS: THYROID STIMULATING HORMONE 2.451 uIU/ML (0.55-4.78)
[2023-09-19] MEDS: NS 1,000 ML IV ONE (17:35)
[2023-09-19 17:55] LABS: RSV AMPLIFICATION NEGATIVE (NEGATIVE)
[2023-09-19] MEDS ORDERED: ISOS1TAB35 PO (20:18)
[2023-09-19] MEDS ORDERED: METO1TAB32 PO (20:18)
[2023-09-19] MEDS ORDERED: HYDR50TA46 PO (20:18)
[2023-09-19] MEDS ORDERED: ATOR40TA75 PO (20:18)
[2023-09-19] MEDS ORDERED: CLOP75TA2 PO (20:18)
[2023-09-19] MEDS ORDERED: AMLO1TAB25 PO (20:18)
[2023-09-19] MEDS ORDERED: med (20:22)
[2023-09-19] MEDS ORDERED: HOME MED LIST COMPLETE! XX SCH (20:25)
[2023-09-19 22:00] LABS: AMPHETAMINES LEVEL URINE NEGATIVE (NEGATIVE); BARBITURATES URINE NEGATIVE (NEGATIVE); CANNABINOIDS URINE NEGATIVE (NEGATIVE); COCAINE METABOLITE URINE NEGATIVE (NEGATIVE); METHADONE URINE NEGATIVE (NEGATIVE); OPIATES URINE NEGATIVE (NEGATIVE); PHENCYCLIDINE URINE NEGATIVE (NEGATIVE)
[2023-09-19 22:06] LABS: BENZODIAZEPINES URINE POSITIVE (NEGATIVE)
[2023-09-19] MEDS ORDERED: ACETAMINOPHEN TAB 650MG DOSE (2X325MG) PO PRN (23:45)
[2023-09-19] MEDS ORDERED: MAALOX 30 ML SUSP *UDC PO PRN (23:45)
[2023-09-19] MEDS ORDERED: MOM 30ML SUSPENSION UDC PO PRN (23:45)
[2023-09-20] VITALS (7 sets, daily range): BP systolic 131–167; BP diastolic 60–71; TEMP 97.2–98.4; O2SAT 97–99
[2023-09-20] MEDS ORDERED: FAMOTIDINE 20 MG TAB PO PRN (00:10)
[2023-09-20] MEDS ORDERED: DEXTROSE 50% 50ML SYRINGE IV PRN (00:10)
[2023-09-20] MEDS ORDERED: GLUCOSE 4GM CHEW TABLET PO PRN (00:10)
[2023-09-20] MEDS ORDERED: GLUCAGON INJ 1MG VIAL SC PRN (00:10)
[2023-09-20 05:49] LABS: HEMATOCRIT 30.1 % (42.0-52.0); HEMOGLOBIN 9.8 g/dl (13.5-17.5); MEAN CORPUSCULAR HEMOGLOBIN 31.9 pg (27.0-33.0); MEAN CORPUSCULAR HGB CONC 32.6 g/dl (32.0-36.5); PLATELET COUNT, AUTOMATED 193 10^3/uL (150-450); RED BLOOD COUNT 3.07 10^6/uL (4.30-6.10); WHITE BLOOD COUNT 5.4 10^3/uL (4.0-10.0)
[2023-09-20 06:19] LABS: ALBUMIN 2.7 G/DL (3.2-5.2); ALKALINE PHOSPHATASE 43 U/L (46-116); ALT/SGPT 12 U/L (7.0-40); AST/SGOT < 8 U/L (<34); BILIRUBIN,TOTAL 0.2 MG/DL (0.3-1.2); BLOOD UREA NITROGEN 19 MG/DL (9-23); CALCIUM LEVEL 8.4 MG/DL (8.3-10.6); CARBON DIOXIDE LEVEL 23 MMOL/L (20-31); CHLORIDE LEVEL 112 MMOL/L (98-107); CREATININE FOR GFR 1.56 MG/DL (0.70-1.30); GLOMERULAR FILTRATION RATE 45.5 (>35); GLUCOSE, FASTING 98 MG/DL (74-106); SODIUM LEVEL 138 MMOL/L (136-145); TOTAL PROTEIN 5.6 G/DL (5.7-8.2)
[2023-09-20] MEDS: INSULIN LISPRO (NovoLOG) PER UNIT SC SCH (07:30)
[2023-09-20] MEDS: DOCUSATE SODIUM 100MG CAPSULE PO SCH (07:45)
[2023-09-20] MEDS: SERTRALINE HCL 25 MG TABLET PO SCH (08:25)
[2023-09-20] MEDS: CLOPIDOGREL 75 MG TAB PO SCH (08:25)
[2023-09-20] MEDS: METOPROLOL SUCC *XL* 25MG TAB (TopROL *XL*) PO SCH (08:25)
[2023-09-20] MEDS: HEPARIN SOD (PORCINE) 5000UNITS/ML 1ML VIAL/SYRINGE SQ SCH (08:26)
[2023-09-20 11:31] LABS: IRON (FE) 35 UG/DL (65-175)
[2023-09-20 11:32] LABS: TOTAL IRON BINDING CAPACITY 234 UG/DL (250-425)
[2023-09-20 11:34] LABS: FERRITIN 54.3 NG/ML (10.5-307.3); FOLATE 17.81 NG/ML (>5.4); VITAMIN B12 LEVEL 215 PG/ML (211-911)
[2023-09-20] MEDS ORDERED: INSULIN LISPRO (NovoLOG) PER UNIT SC SCH (21:00)
[2023-09-20] MEDS ORDERED: ISOSORBIDE MON. (IMDUR) 30MG XR TAB PO SCH (21:00)
[2023-09-20] MEDS ORDERED: ATORVASTATIN 20 MG TAB PO SCH (21:00)
== END 2023-09-20 12:54 | disposition home health service (06) | DRG 69 ==
LOC: M ED 14:06 → EDBD 14:06 → M ED INP 23:29 → M PCU 09-20 01:14
PROVIDERS: ADMIT Family Medicine; ATTEND Family Medicine
PROC: B246ZZZ Ultrasonography of Right and Left Heart (ICD-10-PCS; principal; 2023-09-20)
DX: G45.9 Transient cerebral ischemic attack, unspecified (principal); Z66 Do not resuscitate; E11.22 Type 2 diabetes mellitus with diabetic chronic kidney disease; N18.30 Chronic kidney disease, stage 3 unspecified; I12.9 Hypertensive chronic kidney disease with stage 1 through stage 4 chronic kidney disease, or unspecified chronic kidney disease; R26.89 Other abnormalities of gait and mobility; N40.0 Benign prostatic hyperplasia without lower urinary tract symptoms; I27.20 Pulmonary hypertension, unspecified; I35.1 Nonrheumatic aortic (valve) insufficiency; F03.90 Unspecified dementia, unspecified severity, without behavioral disturbance, psychotic disturbance, mood disturbance, and anxiety; E78.00 Pure hypercholesterolemia, unspecified; K21.9 Gastro-esophageal reflux disease without esophagitis; R91.8 Other nonspecific abnormal finding of lung field; Z86.16 Personal history of COVID-19; Z79.899 Other long term (current) drug therapy; Z11.52 Encounter for screening for COVID-19

== ENCOUNTER 2023-09-23 17:37 | Emergency (ER) | payer MEDICARE ==
[~2023-09-23 17:37] MED LIST changes: +ATOR40TA75 PO; +CLOP75TA2 PO; +ISOS1TAB35 PO; +METO1TAB32 PO; +med
[2023-09-23 17:53] VITALS: TEMP 97.7
[2023-09-23] MEDS: FUROSEMIDE 40MG/4ML VIAL IV ONE (20:02)
[2023-09-23 20:04] LABS: VENOUS BASE EXCESS -8.6 (-2.0-2.0); VENOUS HCO3 18.5 MMOL/L (23.0-27.0); VENOUS O2 SATURATION 65.6 % (60.0-80.0); VENOUS PARTIAL PRESSURE CO2 44.2 mmHg (38.0-50.0); VENOUS PARTIAL PRESSURE O2 35.7 mmHg (30.0-50.0); VENOUS PH 7.239 UNITS (7.330-7.430); VENOUS TOTAL CO2 19.8 MMOL/L (24.0-28.0)
[2023-09-23 20:11] LABS: BASO # 0.1 10^3/uL (0.0-0.2); BASO % 1.1 % (0.0-1.0); EOS # 0.4 10^3/uL (0.0-0.5); EOS % 6.5 % (0.0-3.0); HEMATOCRIT 33.2 % (42.0-52.0); HEMOGLOBIN 10.5 g/dl (13.5-17.5); LYMPH # 1.5 10^3/uL (1.5-5.0); LYMPH % 27.1 % (24.0-44.0); MEAN CORPUSCULAR HGB CONC 31.6 g/dl (32.0-36.5); MEAN CORPUSCULAR VOLUME 101.2 fl (80.0-96.0); MONO # 0.6 10^3/uL (0.0-0.8); MONO % 9.9 % (2.0-8.0); NEUTROPHILS # 3.1 10^3/uL (1.5-8.5); NEUTROPHILS % 55.2 % (36.0-66.0); PLATELET COUNT, AUTOMATED 216 10^3/uL (150-450); RED BLOOD COUNT 3.28 10^6/uL (4.30-6.10); WHITE BLOOD COUNT 5.7 10^3/uL (4.0-10.0)
[2023-09-23 20:25] LABS: INR 1.2; PARTIAL THROMBOPLASTIN TIME 27.4 SECONDS (24.8-34.2); PROTHROMBIN TIME 14.8 SECONDS (12.5-14.5)
[2023-09-23 20:31] LABS: CK-MB VALUE MASS < 1.0 NG/ML (<3.6)
[2023-09-23 20:32] LABS: C REACTIVE PROTEIN QUANTITATIV < 0.40 MG/DL (<1.0); LIPASE 41 U/L (12-53)
[2023-09-23 20:33] LABS: ALBUMIN 3.2 G/DL (3.2-5.2); ALKALINE PHOSPHATASE 46 U/L (46-116); ALT/SGPT 10 U/L (7.0-40); AST/SGOT 11 U/L (<34); BILIRUBIN,DIRECT 0.1 MG/DL (<0.4); BILIRUBIN,TOTAL 0.3 MG/DL (0.3-1.2); BLOOD UREA NITROGEN 30 MG/DL (9-23); CALCIUM LEVEL 8.8 MG/DL (8.3-10.6); CARBON DIOXIDE LEVEL 21 MMOL/L (20-31); CHLORIDE LEVEL 113 MMOL/L (98-107); GLOMERULAR FILTRATION RATE 41.2 (>35); GLUCOSE, FASTING 112 MG/DL (74-106); POTASSIUM SERUM 4.2 MMOL/L (3.5-5.1); SODIUM LEVEL 139 MMOL/L (136-145); TOTAL PROTEIN 6.4 G/DL (5.7-8.2)
[2023-09-23 20:35] LABS: THYROID STIMULATING HORMONE 1.407 uIU/ML (0.55-4.78)
[2023-09-23 20:36] LABS: FREE T4 0.86 NG/DL (0.89-1.76)
[2023-09-23 20:37] LABS: CPK CREATINE PHOSPHOKINASE 41 U/L (46-171); MB/CK RELATIVE INDEX 2.43 (< OR =4)
[2023-09-23 20:57] LABS: RSV AMPLIFICATION NEGATIVE (NEGATIVE)
[2023-09-23 21:45] VITALS: BP 152/64
[2023-09-23 21:46] VITALS: O2SAT 100
[2023-09-23 22:05] LABS: CK-MB VALUE MASS < 1.0 NG/ML (<3.6)
[2023-09-23 22:06] LABS: CPK CREATINE PHOSPHOKINASE 45 U/L (46-171); MB/CK RELATIVE INDEX 2.22 (< OR =4)
[2023-09-23] MEDS ORDERED: LASI40TA9 PO (23:25)
== END 2023-09-23 23:55 | disposition home or self-care (01) ==
LOC: M ED 17:37 → EDBD 17:37 → M ED 23:55
DX: I50.20 Unspecified systolic (congestive) heart failure (principal); R22.43 Localized swelling, mass and lump, lower limb, bilateral; I10 Essential (primary) hypertension; K21.9 Gastro-esophageal reflux disease without esophagitis; E78.5 Hyperlipidemia, unspecified; N18.30 Chronic kidney disease, stage 3 unspecified; Z86.73 Personal history of transient ischemic attack (TIA), and cerebral infarction without residual deficits; Z79.02 Long term (current) use of antithrombotics/antiplatelets; Z79.899 Other long term (current) drug therapy; Z79.01 Long term (current) use of anticoagulants
CPT/HCPCS: 71045; 74176; 80048; 80076; 81001; 82550; 82553; 82803; 83605; 83690; 83880; 84439; 84443; 84484; 85025; 85610; 85730; 86140; 87040; 87631; 93005; 93041; 94760; 96374; 99285; J1940

== ENCOUNTER 2023-10-29 14:12 | Emergency (ER) | payer MEDICARE ==
[~2023-10-29] VITALS: Ht 175.3 cm; Wt 87.4 kg
[~2023-10-29 14:12] MED LIST changes: +LASI40TA9 PO
[2023-10-29 14:50] VITALS: TEMP 97.8
[2023-10-29 15:11] LABS: BASO # 0.1 10^3/uL (0.0-0.2); BASO % 1.3 % (0.0-1.0); EOS # 0.3 10^3/uL (0.0-0.5); EOS % 5.1 % (0.0-3.0); HEMATOCRIT 33.2 % (42.0-52.0); HEMOGLOBIN 10.6 g/dl (13.5-17.5); LYMPH # 1.8 10^3/uL (1.5-5.0); LYMPH % 33.5 % (24.0-44.0); MEAN CORPUSCULAR HEMOGLOBIN 31.7 pg (27.0-33.0); MEAN CORPUSCULAR HGB CONC 31.9 g/dl (32.0-36.5); MEAN CORPUSCULAR VOLUME 99.4 fl (80.0-96.0); MONO # 0.6 10^3/uL (0.0-0.8); MONO % 10.4 % (2.0-8.0); NEUTROPHILS # 2.7 10^3/uL (1.5-8.5); NEUTROPHILS % 49.5 % (36.0-66.0); PLATELET COUNT, AUTOMATED 250 10^3/uL (150-450); RED BLOOD COUNT 3.34 10^6/uL (4.30-6.10); WHITE BLOOD COUNT 5.5 10^3/uL (4.0-10.0)
[2023-10-29] MEDS: GABAPENTIN 100 MG CAP PO ONE (15:15)
[2023-10-29 15:37] LABS: ALBUMIN 3.6 G/DL (3.2-5.2); BILIRUBIN,DIRECT 0.1 MG/DL (<0.4); BILIRUBIN,TOTAL 0.3 MG/DL (0.3-1.2); CALCIUM LEVEL 9.5 MG/DL (8.3-10.6); CREATININE FOR GFR 2.14 MG/DL (0.70-1.30); GLOMERULAR FILTRATION RATE 31.6 (>35); POTASSIUM SERUM 5.1 MMOL/L (3.5-5.1)
[2023-10-29 19:00] VITALS: BP 148/68; O2SAT 98
== END 2023-10-29 19:27 | disposition home or self-care (01) ==
LOC: M ED 14:12 → EDBD 14:12 → M ED 19:27
DX: R60.0 Localized edema (principal); E11.9 Type 2 diabetes mellitus without complications; I12.9 Hypertensive chronic kidney disease with stage 1 through stage 4 chronic kidney disease, or unspecified chronic kidney disease; Z79.899 Other long term (current) drug therapy

== ENCOUNTER 2023-11-14 22:35 | Emergency (ER) | payer MEDICARE ==
[~2023-11-14] VITALS: Ht 172.7 cm; Wt 80.4 kg
[~2023-11-14 22:35] MED LIST changes: -GLIM1TAB4 PO; +GLIM1TAB84 PO
[2023-11-14 23:12] LABS: VENOUS BASE EXCESS -5.7 (-2.0-2.0); VENOUS HCO3 19.6 MMOL/L (23.0-27.0); VENOUS PARTIAL PRESSURE CO2 37.7 mmHg (38.0-50.0); VENOUS PARTIAL PRESSURE O2 63.3 mmHg (30.0-50.0); VENOUS PH 7.334 UNITS (7.330-7.430); VENOUS STANDARD HCO3 19.7 MMOL/L; VENOUS TOTAL CO2 20.8 MMOL/L (24.0-28.0)
[2023-11-14 23:14] LABS: BASO # 0.1 10^3/uL (0.0-0.2); BASO % 0.8 % (0.0-1.0); EOS # 0.2 10^3/uL (0.0-0.5); EOS % 2.5 % (0.0-3.0); HEMOGLOBIN 10.5 g/dl (13.5-17.5); LYMPH # 1.6 10^3/uL (1.5-5.0); LYMPH % 24.3 % (24.0-44.0); MEAN CORPUSCULAR HEMOGLOBIN 31.8 pg (27.0-33.0); MEAN CORPUSCULAR HGB CONC 32.8 g/dl (32.0-36.5); MONO # 0.7 10^3/uL (0.0-0.8); MONO % 11.1 % (2.0-8.0); NEUTROPHILS % 61.1 % (36.0-66.0); WHITE BLOOD COUNT 6.5 10^3/uL (4.0-10.0)
[2023-11-14 23:54] LABS: PLATELET COUNT, AUTOMATED 309 10^3/uL (150-450)
[2023-11-15 01:02] LABS: CK-MB VALUE MASS 1.1 NG/ML (<3.6)
[2023-11-15 01:03] LABS: MB/CK RELATIVE INDEX 2.07 (< OR =4)
[2023-11-15 02:31] LABS: ALBUMIN 3.1 G/DL (3.2-5.2); BILIRUBIN,DIRECT 0.1 MG/DL (<0.4); BILIRUBIN,TOTAL 0.2 MG/DL (0.3-1.2); CALCIUM LEVEL 9.2 MG/DL (8.3-10.6); CK-MB VALUE MASS 1.3 NG/ML (<3.6); CREATININE FOR GFR 1.68 MG/DL (0.70-1.30); GLOMERULAR FILTRATION RATE 41.7 (>35); MB/CK RELATIVE INDEX 2.32 (< OR =4); TOTAL PROTEIN 6.7 G/DL (5.7-8.2)
[2023-11-15] MEDS ORDERED: ISOVUE-370 76% 100ML VIAL As Ordered ONE (02:37)
[2023-11-15] MEDS: fentaNYL 100 MCG/2 ML INJECTION IV ONE (03:11)
[2023-11-15] MEDS ORDERED: ALBU8.5H INH (09:29)
[2023-11-15 09:34] VITALS: BP 112/56; TEMP 97.8; O2SAT 95
[2023-11-18] MEDS ORDERED: FURO20TA2 PO (12:11)
[2023-11-18] MEDS ORDERED: VENTAER INH (12:11)
[2023-11-18] MEDS ORDERED: ATOR80TA59 PO (12:11)
[2023-11-18] MEDS ORDERED: AMLO1TAB24 PO (12:11)
[2023-11-18] MEDS ORDERED: NITR0.4S14 SL (12:11)
== END 2023-11-15 09:41 | disposition home or self-care (01) ==
LOC: EDBD 22:35 → M ED 22:35
DX: J21.9 Acute bronchiolitis, unspecified (principal); R94.31 Abnormal electrocardiogram [ECG] [EKG]; E11.9 Type 2 diabetes mellitus without complications; I10 Essential (primary) hypertension; Z79.51 Long term (current) use of inhaled steroids; Z79.899 Other long term (current) drug therapy

== ENCOUNTER → 2023-12-05 | Outpatient (REF) | payer MEDICARE ==
[~2023-12-05] MED LIST changes: +ALBU8.5H INH; +ASPI81CH8 PO; +ATOR80TA59 PO; +FLOM0.4C39 PO; +FOLI1TAB11 PO; +FURO20TA2 PO; +LISI5TAB11 PO; +NITR0.4S14 SL; +ONDA-282 PO; -ONDA4TAB6 PO; +VENTAER INH; +VITA500T40 PO
== END ==
LOC: M LAB REF 16:32
PROVIDERS: ATTEND Internal Medicine
DX: A41.9 Sepsis, unspecified organism (principal); R06.02 Shortness of breath

== ENCOUNTER 2023-12-09 19:16 | Emergency (ER) | payer MEDICARE ==
[~2023-12-09] VITALS: Ht 175.3 cm; Wt 72.3 kg
[~2023-12-09 19:16] MED LIST changes: -LISI5TAB11 PO
[2023-12-09 19:17] VITALS: BP 164/72; TEMP 98.7; O2SAT 97
[2023-12-09 20:07] LABS: HEMATOCRIT 35.3 % (42.0-52.0); HEMOGLOBIN 10.9 g/dl (13.5-17.5); MEAN CORPUSCULAR HEMOGLOBIN 31.4 pg (27.0-33.0); MEAN CORPUSCULAR HGB CONC 30.9 g/dl (32.0-36.5); MEAN CORPUSCULAR VOLUME 101.7 fl (80.0-96.0); PLATELET COUNT, AUTOMATED 225 10^3/uL (150-450); RED BLOOD COUNT 3.47 10^6/uL (4.30-6.10); WHITE BLOOD COUNT 5.2 10^3/uL (4.0-10.0)
[2023-12-09 20:28] LABS: ETHYL ALCOHOL (ETHANOL) < 0.003 % (0.000-0.010)
[2023-12-09] MEDS ORDERED: LISI5TAB11 PO (20:28)
[2023-12-09 20:29] LABS: SALICYLATE LEVEL < 3.0 MG/DL (<30)
[2023-12-09 20:30] LABS: ALBUMIN 3.1 G/DL (3.2-5.2); ALKALINE PHOSPHATASE 56 U/L (46-116); ALT/SGPT 21 U/L (7.0-40); AST/SGOT 18 U/L (<34); BILIRUBIN,DIRECT < 0.1 MG/DL (<0.4); BILIRUBIN,TOTAL 0.2 MG/DL (0.3-1.2); BLOOD UREA NITROGEN 35 MG/DL (9-23); CALCIUM LEVEL 9.2 MG/DL (8.3-10.6); CARBON DIOXIDE LEVEL 20 MMOL/L (20-31); CHLORIDE LEVEL 111 MMOL/L (98-107); CREATININE FOR GFR 1.52 MG/DL (0.70-1.30); GLOMERULAR FILTRATION RATE 46.9 (>35); GLUCOSE, FASTING 114 MG/DL (74-106); POTASSIUM SERUM 5.2 MMOL/L (3.5-5.1); SODIUM LEVEL 138 MMOL/L (136-145); TOTAL PROTEIN 6.9 G/DL (5.7-8.2)
[2023-12-09 20:32] LABS: THYROID STIMULATING HORMONE 2.949 uIU/ML (0.55-4.78)
[2023-12-09] MEDS: SOD POLYSTYRENE SULFONATE SUSP 15GM 60ML UD PO ONE (21:28)
== END 2023-12-09 23:42 | disposition home or self-care (01) ==
LOC: M ED 19:16
DX: E87.5 Hyperkalemia (principal); G31.84 Mild cognitive impairment of uncertain or unknown etiology; I25.10 Atherosclerotic heart disease of native coronary artery without angina pectoris; I27.20 Pulmonary hypertension, unspecified; I12.9 Hypertensive chronic kidney disease with stage 1 through stage 4 chronic kidney disease, or unspecified chronic kidney disease; F79 Unspecified intellectual disabilities; K21.9 Gastro-esophageal reflux disease without esophagitis; N40.0 Benign prostatic hyperplasia without lower urinary tract symptoms; E11.51 Type 2 diabetes mellitus with diabetic peripheral angiopathy without gangrene; R91.8 Other nonspecific abnormal finding of lung field; I35.0 Nonrheumatic aortic (valve) stenosis; Z79.899 Other long term (current) drug therapy

== ENCOUNTER 2023-12-12 18:16 | Emergency (ER) | payer MEDICARE ==
[~2023-12-12] VITALS: Ht 175.3 cm; Wt 82.6 kg
[~2023-12-12 18:16] MED LIST changes: +LISI5TAB11 PO
[2023-12-12 20:27] LABS: BASO # 0.1 10^3/uL (0.0-0.2); BASO % 1.4 % (0.0-1.0); EOS # 0.4 10^3/uL (0.0-0.5); EOS % 6.4 % (0.0-3.0); HEMATOCRIT 36.4 % (42.0-52.0); HEMOGLOBIN 11.5 g/dl (13.5-17.5); LYMPH # 1.6 10^3/uL (1.5-5.0); LYMPH % 28.8 % (24.0-44.0); MEAN CORPUSCULAR HEMOGLOBIN 31.9 pg (27.0-33.0); MEAN CORPUSCULAR HGB CONC 31.6 g/dl (32.0-36.5); MEAN CORPUSCULAR VOLUME 101.1 fl (80.0-96.0); MONO # 0.5 10^3/uL (0.0-0.8); MONO % 9.6 % (2.0-8.0); NEUTROPHILS % 53.6 % (36.0-66.0); PLATELET COUNT, AUTOMATED 246 10^3/uL (150-450); WHITE BLOOD COUNT 5.6 10^3/uL (4.0-10.0)
[2023-12-12 20:34] LABS: ALBUMIN 3.2 G/DL (3.2-5.2); BILIRUBIN,DIRECT 0.1 MG/DL (<0.4); BILIRUBIN,TOTAL 0.3 MG/DL (0.3-1.2); CALCIUM LEVEL 9.3 MG/DL (8.3-10.6); CREATININE FOR GFR 1.54 MG/DL (0.70-1.30); GLOMERULAR FILTRATION RATE 46.2 (>35); POTASSIUM SERUM 4.8 MMOL/L (3.5-5.1); TOTAL PROTEIN 7.1 G/DL (5.7-8.2)
[2023-12-12 20:41] LABS: INR 1.09; PROTHROMBIN TIME 13.8 SECONDS (12.5-14.5)
[2023-12-12 22:29] LABS: HEMATOCRIT 32.6 % (42.0-52.0); HEMOGLOBIN 10.3 g/dl (13.5-17.5); MEAN CORPUSCULAR HEMOGLOBIN 31.8 pg (27.0-33.0); MEAN CORPUSCULAR HGB CONC 31.6 g/dl (32.0-36.5); MEAN CORPUSCULAR VOLUME 100.6 fl (80.0-96.0); PLATELET COUNT, AUTOMATED 202 10^3/uL (150-450); RED BLOOD COUNT 3.24 10^6/uL (4.30-6.10); WHITE BLOOD COUNT 5.7 10^3/uL (4.0-10.0)
[2023-12-12 23:52] VITALS: BP 148/80; TEMP 98.8; O2SAT 99
== END 2023-12-12 23:53 | disposition home or self-care (01) ==
LOC: M ED 18:16
DX: K62.5 Hemorrhage of anus and rectum (principal); E11.9 Type 2 diabetes mellitus without complications; I10 Essential (primary) hypertension; E78.5 Hyperlipidemia, unspecified; K21.9 Gastro-esophageal reflux disease without esophagitis; F43.9 Reaction to severe stress, unspecified; Z86.73 Personal history of transient ischemic attack (TIA), and cerebral infarction without residual deficits; Z79.899 Other long term (current) drug therapy

== ENCOUNTER 2023-12-22 16:45 | Emergency (ER) | payer MEDICARE ==
[~2023-12-22] VITALS: Ht 175.3 cm; Wt 82.5 kg
[2023-12-22 18:43] LABS: BASO # 0.1 10^3/uL (0.0-0.2); BASO % 0.8 % (0.0-1.0); EOS # 0.4 10^3/uL (0.0-0.5); EOS % 7.3 % (0.0-3.0); HEMATOCRIT 33.5 % (42.0-52.0); HEMOGLOBIN 10.6 g/dl (13.5-17.5); LYMPH # 1.4 10^3/uL (1.5-5.0); MEAN CORPUSCULAR HGB CONC 31.6 g/dl (32.0-36.5); MEAN CORPUSCULAR VOLUME 101.2 fl (80.0-96.0); MONO # 0.7 10^3/uL (0.0-0.8); MONO % 10.7 % (2.0-8.0); NEUTROPHILS # 3.5 10^3/uL (1.5-8.5); NEUTROPHILS % 57.9 % (36.0-66.0); PLATELET COUNT, AUTOMATED 231 10^3/uL (150-450); RED BLOOD COUNT 3.31 10^6/uL (4.30-6.10); WHITE BLOOD COUNT 6.1 10^3/uL (4.0-10.0)
[2023-12-22 18:53] LABS: ERYTHROCYTE SEDIMENTATION RATE 45 mm/hr (0-20)
[2023-12-22 18:54] LABS: INR 1.12; PARTIAL THROMBOPLASTIN TIME 26.6 SECONDS (24.8-34.2); PROTHROMBIN TIME 14.1 SECONDS (12.5-14.5)
[2023-12-22 19:05] LABS: CK-MB VALUE MASS < 1.0 NG/ML (<3.6); LIPASE 54 U/L (12-53)
[2023-12-22 19:07] LABS: ALBUMIN 3.2 G/DL (3.2-5.2); ALKALINE PHOSPHATASE 78 U/L (46-116); ALT/SGPT 20 U/L (7.0-40); AST/SGOT 14 U/L (<34); BILIRUBIN,DIRECT 0.1 MG/DL (<0.4); BILIRUBIN,TOTAL 0.2 MG/DL (0.3-1.2); BLOOD UREA NITROGEN 34 MG/DL (9-23); CALCIUM LEVEL 8.7 MG/DL (8.3-10.6); CARBON DIOXIDE LEVEL 24 MMOL/L (20-31); CHLORIDE LEVEL 112 MMOL/L (98-107); CPK CREATINE PHOSPHOKINASE 50 U/L (46-171); CREATININE FOR GFR 1.65 MG/DL (0.70-1.30); GLOMERULAR FILTRATION RATE 42.6 (>35); GLUCOSE, FASTING 139 MG/DL (74-106); POTASSIUM SERUM 4.3 MMOL/L (3.5-5.1); SODIUM LEVEL 142 MMOL/L (136-145); TOTAL PROTEIN 6.9 G/DL (5.7-8.2)
[2023-12-22 19:08] LABS: FREE T4 0.87 NG/DL (0.89-1.76); THYROID STIMULATING HORMONE 2.092 uIU/ML (0.55-4.78)
[2023-12-22 19:14] LABS: PROCALCITONIN 0.16 ng/ml
[2023-12-22 21:55] VITALS: BP 165/77; TEMP 98.4; O2SAT 100
== END 2023-12-22 22:14 | disposition home or self-care (01) ==
LOC: M ED 16:45
DX: I87.2 Venous insufficiency (chronic) (peripheral) (principal); I25.10 Atherosclerotic heart disease of native coronary artery without angina pectoris; I50.9 Heart failure, unspecified; E11.9 Type 2 diabetes mellitus without complications; I10 Essential (primary) hypertension; K21.9 Gastro-esophageal reflux disease without esophagitis; N18.30 Chronic kidney disease, stage 3 unspecified; Z86.73 Personal history of transient ischemic attack (TIA), and cerebral infarction without residual deficits; Z95.1 Presence of aortocoronary bypass graft; Z79.899 Other long term (current) drug therapy

== ENCOUNTER 2024-03-01 16:48 | Inpatient (IN) | payer MEDICARE ==
[~2024-03-01] VITALS: Ht 167.6 cm; Wt 76.1 kg
[2024-03-01 18:33] LABS: VENOUS BASE EXCESS -8.8 (-2.0-2.0); VENOUS HCO3 18.4 MMOL/L (23.0-27.0); VENOUS O2 SATURATION 66.8 % (60.0-80.0); VENOUS PARTIAL PRESSURE CO2 44.9 mmHg (38.0-50.0); VENOUS PARTIAL PRESSURE O2 36.3 mmHg (30.0-50.0); VENOUS STANDARD HCO3 16.9 MMOL/L; VENOUS TOTAL CO2 19.8 MMOL/L (24.0-28.0)
[2024-03-01 18:39] LABS: BASO # 0.1 10^3/uL (0.0-0.2); EOS # 0.4 10^3/uL (0.0-0.5); EOS % 8.7 % (0.0-3.0); HEMATOCRIT 30.6 % (42.0-52.0); HEMOGLOBIN 9.6 g/dl (13.5-17.5); LYMPH # 1.3 10^3/uL (1.5-5.0); MEAN CORPUSCULAR HGB CONC 31.4 g/dl (32.0-36.5); MONO # 0.6 10^3/uL (0.0-0.8); MONO % 12.8 % (2.0-8.0); NEUTROPHILS # 2.5 10^3/uL (1.5-8.5); NEUTROPHILS % 49.9 % (36.0-66.0); PLATELET COUNT, AUTOMATED 238 10^3/uL (150-450); WHITE BLOOD COUNT 4.9 10^3/uL (4.0-10.0)
[2024-03-01 19:08] LABS: ETHYL ALCOHOL (ETHANOL) 0.007 % (0.000-0.010)
[2024-03-01 19:09] LABS: ALBUMIN 3.4 G/DL (3.2-5.2); ALKALINE PHOSPHATASE 58 U/L (46-116); ALT/SGPT < 9 U/L (7.0-40); AST/SGOT 9 U/L (<34); BILIRUBIN,DIRECT 0.1 MG/DL (<0.4); BILIRUBIN,TOTAL 0.3 MG/DL (0.3-1.2); BLOOD UREA NITROGEN 70 MG/DL (9-23); CALCIUM LEVEL 9.4 MG/DL (8.3-10.6); CARBON DIOXIDE LEVEL 20 MMOL/L (20-31); CHLORIDE LEVEL 113 MMOL/L (98-107); CREATININE FOR GFR 2.51 MG/DL (0.70-1.30); GLOMERULAR FILTRATION RATE 26.3 (>35); GLUCOSE, FASTING 118 MG/DL (74-106); POTASSIUM SERUM 4.8 MMOL/L (3.5-5.1); SALICYLATE LEVEL < 3.0 MG/DL (<30); SODIUM LEVEL 139 MMOL/L (136-145); TOTAL PROTEIN 7.2 G/DL (5.7-8.2)
[2024-03-01 19:12] LABS: THYROID STIMULATING HORMONE 1.112 uIU/ML (0.55-4.78)
[2024-03-01 19:39] LABS: OSMOLALITY SERUM 315 MOSM/KG (280-301)
[2024-03-01] MEDS ORDERED: TORS20TA2 PO (21:56)
[2024-03-01] MEDS ORDERED: B-12100021 PO (21:56)
[2024-03-01] MEDS ORDERED: LISI2.5T9 PO (21:56)
[2024-03-01] MEDS ORDERED: DONE10TA90 PO (21:56)
[2024-03-01] MEDS ORDERED: FOLI1TAB11 PO (21:56)
[2024-03-01] MEDS ORDERED: TAMS1CAP17 PO (21:56)
[2024-03-01] MEDS ORDERED: ASPI81CH33 PO (21:56)
[2024-03-01] MEDS ORDERED: HOME MED LIST COMPLETE! XX SCH (22:00)
[2024-03-01] MEDS: NS 1,000 ML IV ONE (22:10)
[2024-03-01] MEDS ORDERED: MOM 30ML SUSPENSION UDC PO PRN (23:45)
[2024-03-01] MEDS ORDERED: ALBUTEROL 90 MCG/ACT 8GM HFA INHALER INH PRN (23:50)
[2024-03-02] MEDS: ATORVASTATIN 20 MG TAB PO SCH (00:25)
[2024-03-02] MEDS: CLOPIDOGREL 75 MG TAB PO SCH (00:26)
[2024-03-02] MEDS: TAMSULOSIN 0.4 MG CAP PO SCH (00:26)
[2024-03-02 00:55] VITALS: BP 124/68; TEMP 97.9; O2SAT 94
[2024-03-02] MEDS: NS 1,000 ML IV SCH (01:14)
[2024-03-02] MEDS ORDERED: GLUCOSE 4 GM CHEW PO PRN (01:15)
[2024-03-02] MEDS ORDERED: GLUCAGON INJ 1MG VIAL SC PRN (01:15)
[2024-03-02] MEDS ORDERED: DEXTROSE 50% 50ML SYRINGE IV PRN (01:15)
[2024-03-02] MEDS: NYSTATIN 100,000 UNITS/GM TOPICAL PWD 15GM TOP SCH (02:16)
[2024-03-02 04:06] VITALS: BP 106/46; TEMP 98.4; O2SAT 98
[2024-03-02 05:47] LABS: VENOUS BASE EXCESS -9.3 (-2.0-2.0); VENOUS HCO3 17.3 MMOL/L (23.0-27.0); VENOUS PARTIAL PRESSURE CO2 40.1 mmHg (38.0-50.0); VENOUS PARTIAL PRESSURE O2 59.1 mmHg (30.0-50.0); VENOUS PH 7.252 UNITS (7.330-7.430); VENOUS STANDARD HCO3 16.8 MMOL/L; VENOUS TOTAL CO2 18.5 MMOL/L (24.0-28.0)
[2024-03-02 05:48] LABS: HEMOGLOBIN 8.9 g/dl (13.5-17.5); MEAN CORPUSCULAR HEMOGLOBIN 32.4 pg (27.0-33.0); MEAN CORPUSCULAR HGB CONC 31.8 g/dl (32.0-36.5); MEAN CORPUSCULAR VOLUME 101.8 fl (80.0-96.0); PLATELET COUNT, AUTOMATED 231 10^3/uL (150-450); RED BLOOD COUNT 2.75 10^6/uL (4.30-6.10); WHITE BLOOD COUNT 5.2 10^3/uL (4.0-10.0)
[2024-03-02 06:18] LABS: ALBUMIN 2.9 G/DL (3.2-5.2); BILIRUBIN,TOTAL 0.2 MG/DL (0.3-1.2); CALCIUM LEVEL 8.7 MG/DL (8.3-10.6); CREATININE FOR GFR 2.28 MG/DL (0.70-1.30); GLOMERULAR FILTRATION RATE 29.3 (>35); POTASSIUM SERUM 4.3 MMOL/L (3.5-5.1); TOTAL PROTEIN 6.2 G/DL (5.7-8.2)
[2024-03-02] MEDS: LR 1,000 ML IV SCH (06:41)
[2024-03-02] MEDS ORDERED: TORSEMIDE 20 MG TAB PO SCH (09:00)
[2024-03-02] MEDS: HEPARIN SOD (PORCINE) 5000UNITS/ML 1ML VIAL/SYRINGE SC SCH (09:00)
[2024-03-02] MEDS: FOLIC ACID 1MG TAB PO SCH (09:01)
[2024-03-02] MEDS: DONEPEZIL 5 MG TAB PO SCH (09:01)
[2024-03-02] MEDS: ASPIRIN 81MG CHEW TABLET PO SCH (09:01)
[2024-03-02] MEDS: SERTRALINE HCL 25 MG TABLET PO SCH (09:01)
[2024-03-02] MEDS: INSULIN LISPRO (NovoLOG) PER UNIT SC SCH ×2 (09:02→20:36)
[2024-03-02 11:45] VITALS: BP 110/44; TEMP 98.1; O2SAT 97
[2024-03-02] MEDS: FAMOTIDINE 20 MG TAB PO PRN (17:30)
[2024-03-03] VITALS (10 sets, daily range): BP systolic 115–123; BP diastolic 43–60; TEMP 98.1–98.2; O2SAT 78–100
[2024-03-03] MEDS: ACETAMINOPHEN TAB 650MG DOSE (2X325MG) PO PRN (12:33)
[2024-03-03 15:03] LABS: BASO % 0.8 % (0.0-1.0); EOS # 0.5 10^3/uL (0.0-0.5); EOS % 9.9 % (0.0-3.0); HEMATOCRIT 26.9 % (42.0-52.0); HEMOGLOBIN 8.5 g/dl (13.5-17.5); LYMPH # 1.7 10^3/uL (1.5-5.0); LYMPH % 35.6 % (24.0-44.0); MEAN CORPUSCULAR HEMOGLOBIN 32.2 pg (27.0-33.0); MEAN CORPUSCULAR HGB CONC 31.6 g/dl (32.0-36.5); MEAN CORPUSCULAR VOLUME 101.9 fl (80.0-96.0); MONO # 0.6 10^3/uL (0.0-0.8); MONO % 12.3 % (2.0-8.0); PLATELET COUNT, AUTOMATED 223 10^3/uL (150-450); RED BLOOD COUNT 2.64 10^6/uL (4.30-6.10); WHITE BLOOD COUNT 4.9 10^3/uL (4.0-10.0)
[2024-03-03 15:38] LABS: CALCIUM LEVEL 8.5 MG/DL (8.3-10.6); CREATININE FOR GFR 1.88 MG/DL (0.70-1.30); GLOMERULAR FILTRATION RATE 36.7 (>35); POTASSIUM SERUM 5.2 MMOL/L (3.5-5.1)
[2024-03-03] MEDS: QUEtiapine FUMARATE 25 MG TAB PO SCH (20:43)
[2024-03-04] VITALS: BP 115/54; TEMP 98.1; O2SAT 98
[2024-03-04] MEDS ORDERED: VARIBAR NECTAR 40% w/v 240ML SUSP BTL As Ordered ONE (11:20)
[2024-03-04] MEDS ORDERED: VARIBAR PUDDING 40% w/v 230ML TUBE As Ordered ONE (11:20)
[2024-03-04] MEDS ORDERED: BARIUM SULFATE 700 MG TABLET (E-Z-DISK) As Ordered ONE (11:20)
[2024-03-04] MEDS ORDERED: E-Z-PAQUE 96% w/w SUSP 176GM BTL As Ordered ONE (11:20)
[2024-03-04 12:00] VITALS: BP 125/45; TEMP 97.9; O2SAT 98
[2024-03-04 15:18] LABS: BASO % 0.8 % (0.0-1.0); EOS # 0.6 10^3/uL (0.0-0.5); EOS % 11.2 % (0.0-3.0); HEMATOCRIT 27.3 % (42.0-52.0); HEMOGLOBIN 8.8 g/dl (13.5-17.5); LYMPH # 1.3 10^3/uL (1.5-5.0); LYMPH % 26.9 % (24.0-44.0); MEAN CORPUSCULAR HEMOGLOBIN 32.7 pg (27.0-33.0); MEAN CORPUSCULAR HGB CONC 32.2 g/dl (32.0-36.5); MEAN CORPUSCULAR VOLUME 101.5 fl (80.0-96.0); MONO # 0.5 10^3/uL (0.0-0.8); MONO % 9.8 % (2.0-8.0); NEUTROPHILS # 2.5 10^3/uL (1.5-8.5); NEUTROPHILS % 51.1 % (36.0-66.0); PLATELET COUNT, AUTOMATED 217 10^3/uL (150-450); RED BLOOD COUNT 2.69 10^6/uL (4.30-6.10); WHITE BLOOD COUNT 4.9 10^3/uL (4.0-10.0)
[2024-03-04 19:22] VITALS: BP 111/43; TEMP 97.9; O2SAT 98
[2024-03-04 19:39] LABS: CALCIUM LEVEL 9.3 MG/DL (8.3-10.6); CREATININE FOR GFR 1.57 MG/DL (0.70-1.30); GLOMERULAR FILTRATION RATE 45.1 (>35); POTASSIUM SERUM 4.6 MMOL/L (3.5-5.1)
[2024-03-05 03:25] VITALS: BP 156/77; TEMP 98.1; O2SAT 100
[2024-03-05 11:00] LABS: BASO % 0.7 % (0.0-1.0); EOS # 0.5 10^3/uL (0.0-0.5); EOS % 8.9 % (0.0-3.0); HEMATOCRIT 29.6 % (42.0-52.0); HEMOGLOBIN 9.5 g/dl (13.5-17.5); LYMPH # 1.6 10^3/uL (1.5-5.0); LYMPH % 26.8 % (24.0-44.0); MEAN CORPUSCULAR HEMOGLOBIN 32.4 pg (27.0-33.0); MEAN CORPUSCULAR HGB CONC 32.1 g/dl (32.0-36.5); MONO # 0.5 10^3/uL (0.0-0.8); MONO % 8.2 % (2.0-8.0); NEUTROPHILS # 3.3 10^3/uL (1.5-8.5); NEUTROPHILS % 55.1 % (36.0-66.0); PLATELET COUNT, AUTOMATED 241 10^3/uL (150-450); RED BLOOD COUNT 2.93 10^6/uL (4.30-6.10)
[2024-03-05 11:45] LABS: CALCIUM LEVEL 8.9 MG/DL (8.3-10.6); CREATININE FOR GFR 1.48 MG/DL (0.70-1.30); GLOMERULAR FILTRATION RATE 48.2 (>35); POTASSIUM SERUM 4.3 MMOL/L (3.5-5.1)
[2024-03-05 12:31] VITALS: BP 131/59; TEMP 98.1; O2SAT 99
[2024-03-05] MEDS: FUROSEMIDE 20 MG TAB PO ONE (12:31)
[2024-03-05 20:00] VITALS: BP_SYST 133; BP_SYST 135; BP_DIAS 57; BP_DIAS 83; TEMP 97.5; TEMP 98.8; O2SAT 94; O2SAT 98
[2024-03-06 04:00] VITALS: BP 108/50; TEMP 99; O2SAT 99
[2024-03-06 08:30] VITALS: BP 112/52
[2024-03-06] MEDS: FUROSEMIDE 20 MG TAB PO SCH (08:31)
[2024-03-06 11:53] VITALS: BP 109/48; TEMP 97.7; O2SAT 91
== END 2024-03-06 14:32 | disposition home health service (06) | DRG 683 ==
LOC: M ED 16:48 → M ED INP 23:44 → M MSPAV 03-02 00:49
PROVIDERS: ADMIT Student in an Organized Health Care Education/Training Program; ATTEND Internal Medicine
DX: N17.9 Acute kidney failure, unspecified (principal); I69.351 Hemiplegia and hemiparesis following cerebral infarction affecting right dominant side; E87.29 Other acidosis; I50.32 Chronic diastolic (congestive) heart failure; I13.0 Hypertensive heart and chronic kidney disease with heart failure and stage 1 through stage 4 chronic kidney disease, or unspecified chronic kidney disease; I25.10 Atherosclerotic heart disease of native coronary artery without angina pectoris; E11.65 Type 2 diabetes mellitus with hyperglycemia; F03.90 Unspecified dementia, unspecified severity, without behavioral disturbance, psychotic disturbance, mood disturbance, and anxiety; R26.89 Other abnormalities of gait and mobility; I08.3 Combined rheumatic disorders of mitral, aortic and tricuspid valves; I27.20 Pulmonary hypertension, unspecified; N18.30 Chronic kidney disease, stage 3 unspecified; N40.0 Benign prostatic hyperplasia without lower urinary tract symptoms; K21.9 Gastro-esophageal reflux disease without esophagitis; F32.A Depression, unspecified; Z66 Do not resuscitate; Z79.82 Long term (current) use of aspirin; Z79.899 Other long term (current) drug therapy; Z11.52 Encounter for screening for COVID-19; R13.10 Dysphagia, unspecified; E11.22 Type 2 diabetes mellitus with diabetic chronic kidney disease

== ENCOUNTER 2024-03-24 20:34 | Observation (INO) | payer MEDICARE ==
[~2024-03-24] VITALS: Ht 175.3 cm; Wt 76.1 kg
[~2024-03-24 20:34] MED LIST changes: +ASPI81CH33 PO; +B-12100021 PO; +DONE10TA90 PO; +LISI2.5T9 PO; +TAMS1CAP17 PO; +TORS20TA2 PO
[2024-03-24 21:28] LABS: BASO # 0.1 10^3/uL (0.0-0.2); BASO % 0.9 % (0.0-1.0); EOS # 0.5 10^3/uL (0.0-0.5); EOS % 8.7 % (0.0-3.0); HEMATOCRIT 26.1 % (42.0-52.0); HEMOGLOBIN 8.2 g/dl (13.5-17.5); LYMPH # 1.3 10^3/uL (1.5-5.0); LYMPH % 24.7 % (24.0-44.0); MEAN CORPUSCULAR HEMOGLOBIN 31.9 pg (27.0-33.0); MEAN CORPUSCULAR HGB CONC 31.4 g/dl (32.0-36.5); MEAN CORPUSCULAR VOLUME 101.6 fl (80.0-96.0); MONO # 0.7 10^3/uL (0.0-0.8); MONO % 13.7 % (2.0-8.0); NEUTROPHILS # 2.8 10^3/uL (1.5-8.5); NEUTROPHILS % 51.6 % (36.0-66.0); PLATELET COUNT, AUTOMATED 256 10^3/uL (150-450); RED BLOOD COUNT 2.57 10^6/uL (4.30-6.10); WHITE BLOOD COUNT 5.4 10^3/uL (4.0-10.0)
[2024-03-24 21:51] LABS: CK-MB VALUE MASS < 1.0 NG/ML (<3.6); ETHYL ALCOHOL (ETHANOL) < 0.003 % (0.000-0.010)
[2024-03-24 21:53] LABS: ALBUMIN 3.1 G/DL (3.2-5.2); ALKALINE PHOSPHATASE 55 U/L (46-116); ALT/SGPT 12 U/L (7.0-40); AST/SGOT 11 U/L (<34); BILIRUBIN,DIRECT 0.1 MG/DL (<0.4); BILIRUBIN,TOTAL 0.3 MG/DL (0.3-1.2); BLOOD UREA NITROGEN 49 MG/DL (9-23); CALCIUM LEVEL 8.8 MG/DL (8.3-10.6); CARBON DIOXIDE LEVEL 22 MMOL/L (20-31); CHLORIDE LEVEL 111 MMOL/L (98-107); CPK CREATINE PHOSPHOKINASE 71 U/L (46-171); GLOMERULAR FILTRATION RATE 32.2 (>35); GLUCOSE, FASTING 124 MG/DL (74-106); POTASSIUM SERUM 4.3 MMOL/L (3.5-5.1); SODIUM LEVEL 140 MMOL/L (136-145); TOTAL PROTEIN 6.7 G/DL (5.7-8.2)
[2024-03-24 21:56] LABS: THYROID STIMULATING HORMONE 0.954 uIU/ML (0.55-4.78)
[2024-03-24] MEDS: NS 1,000 ML IV SCH (22:28)
[2024-03-24 22:55] LABS: CK-MB VALUE MASS < 1.0 NG/ML (<3.6)
[2024-03-24 23:01] LABS: CPK CREATINE PHOSPHOKINASE 64 U/L (46-171); MB/CK RELATIVE INDEX 1.56 (< OR =4)
[2024-03-24] MEDS ORDERED: HOME MED LIST COMPLETE! XX SCH (23:25)
[2024-03-25] MEDS ORDERED: ACETAMINOPHEN TAB 650MG DOSE (2X325MG) PO PRN
[2024-03-25] MEDS ORDERED: NITROGLYCERIN 0.4MG SUBL TABLET SL PRN (00:45)
[2024-03-25] MEDS ORDERED: ALBUTEROL 90 MCG/ACT 8GM HFA INHALER INH PRN (00:45)
[2024-03-25 00:53] LABS: VITAMIN B12 LEVEL 716 PG/ML (211-911)
[2024-03-25 01:26] LABS: HEMOGLOBIN A1c 6.4 % (4.0-6.0)
[2024-03-25 01:54] VITALS: BP 132/52; TEMP 97.2; O2SAT 96
[2024-03-25] MEDS: NYSTATIN 100,000 UNITS/GM TOPICAL PWD 15GM TOP SCH (02:24)
[2024-03-25 04:00] VITALS: BP 108/44; TEMP 97.9; O2SAT 95
[2024-03-25] MEDS: HEPARIN SOD (PORCINE) 5000UNITS/ML 1ML VIAL/SYRINGE SQ SCH (05:09)
[2024-03-25 06:16] LABS: HEMATOCRIT 27.4 % (42.0-52.0); HEMOGLOBIN 8.7 g/dl (13.5-17.5); MEAN CORPUSCULAR HEMOGLOBIN 32.7 pg (27.0-33.0); MEAN CORPUSCULAR HGB CONC 31.8 g/dl (32.0-36.5); PLATELET COUNT, AUTOMATED 238 10^3/uL (150-450); RED BLOOD COUNT 2.66 10^6/uL (4.30-6.10); WHITE BLOOD COUNT 5.2 10^3/uL (4.0-10.0)
[2024-03-25 06:58] LABS: CALCIUM LEVEL 8.7 MG/DL (8.3-10.6); CREATININE FOR GFR 1.95 MG/DL (0.70-1.30); GLOMERULAR FILTRATION RATE 35.1 (>35); MAGNESIUM LEVEL 1.9 MG/DL (1.8-2.4); POTASSIUM SERUM 3.9 MMOL/L (3.5-5.1)
[2024-03-25 08:00] VITALS: BP 126/52; TEMP 98.1; O2SAT 98
[2024-03-25] MEDS: CYANOCOBALAMIN 500 MCG TAB PO SCH (08:29)
[2024-03-25] MEDS: FAMOTIDINE 20 MG TAB PO SCH (08:29)
[2024-03-25] MEDS: NS 1,000 ML IV SCH (08:29)
[2024-03-25] MEDS: FOLIC ACID 1MG TAB PO SCH (08:29)
[2024-03-25] MEDS: ASPIRIN 81MG CHEW TABLET PO SCH (08:29)
[2024-03-25] MEDS: SERTRALINE HCL 25 MG TABLET PO SCH (08:29)
[2024-03-25 08:30] VITALS: BP 114/58
[2024-03-25] MEDS: amLODIPine 5 MG TAB PO SCH (08:30)
[2024-03-25] MEDS ORDERED: FUROSEMIDE 20 MG TAB PO SCH (09:00)
[2024-03-25 12:00] VITALS: BP 108/49; TEMP 97.9; O2SAT 96
[2024-03-25] MEDS ORDERED: FURO20TA2 PO (12:51)
[2024-03-25 13:04] LABS: CALCIUM LEVEL 8.1 MG/DL (8.3-10.6); CREATININE FOR GFR 1.89 MG/DL (0.70-1.30); GLOMERULAR FILTRATION RATE 36.4 (>35); POTASSIUM SERUM 3.8 MMOL/L (3.5-5.1)
[2024-03-25] MEDS ORDERED: TAMSULOSIN 0.4 MG CAP PO SCH (21:00)
[2024-03-25] MEDS ORDERED: ATORVASTATIN 20 MG TAB PO SCH (21:00)
[2024-03-25] MEDS ORDERED: CLOPIDOGREL 75 MG TAB PO SCH (21:00)
== END 2024-03-25 15:15 | disposition home or self-care (01) ==
LOC: M ED 20:34 → M ED INP 20:35 → M MS5PR 03-25 01:36
PROVIDERS: ADMIT Preventive Medicine Undersea and Hyperbaric Medicine; ATTEND Preventive Medicine Undersea and Hyperbaric Medicine
DX: G93.41 Metabolic encephalopathy (principal); F03.90 Unspecified dementia, unspecified severity, without behavioral disturbance, psychotic disturbance, mood disturbance, and anxiety; N17.9 Acute kidney failure, unspecified; N18.30 Chronic kidney disease, stage 3 unspecified; I25.10 Atherosclerotic heart disease of native coronary artery without angina pectoris; I27.0 Primary pulmonary hypertension; Z86.73 Personal history of transient ischemic attack (TIA), and cerebral infarction without residual deficits; R51.9 Headache, unspecified; I12.9 Hypertensive chronic kidney disease with stage 1 through stage 4 chronic kidney disease, or unspecified chronic kidney disease; E11.9 Type 2 diabetes mellitus without complications; E87.5 Hyperkalemia; N40.0 Benign prostatic hyperplasia without lower urinary tract symptoms; N28.1 Cyst of kidney, acquired; F79 Unspecified intellectual disabilities; R91.1 Solitary pulmonary nodule; Z86.16 Personal history of COVID-19; K21.9 Gastro-esophageal reflux disease without esophagitis; F32.A Depression, unspecified; Z79.82 Long term (current) use of aspirin; Z79.899 Other long term (current) drug therapy
CPT/HCPCS: 36415; 70450; 71045; 72125; 73502; 73552; 80048; 80076; 81001; 82077; 82140; 82550; 82553; 82607; 83036; 83735; 84443; 84484; 85025; 85027; 93005; 93041; 94760; 96360; 96361; 96372; 97161; 99285; G0378

== ENCOUNTER 2024-03-31 21:12 | Inpatient (IN) | payer MEDICARE ==
[~2024-03-31] VITALS: Ht 175.3 cm; Wt 78.5 kg
[2024-03-31 22:33] LABS: BASO % 0.7 % (0.0-1.0); EOS # 0.7 10^3/uL (0.0-0.5); EOS % 11.5 % (0.0-3.0); HEMATOCRIT 27.3 % (42.0-52.0); HEMOGLOBIN 8.5 g/dl (13.5-17.5); LYMPH # 1.1 10^3/uL (1.5-5.0); LYMPH % 18.1 % (24.0-44.0); MEAN CORPUSCULAR HGB CONC 31.1 g/dl (32.0-36.5); MEAN CORPUSCULAR VOLUME 102.6 fl (80.0-96.0); MONO # 0.7 10^3/uL (0.0-0.8); MONO % 11.6 % (2.0-8.0); NEUTROPHILS # 3.5 10^3/uL (1.5-8.5); NEUTROPHILS % 57.8 % (36.0-66.0); PLATELET COUNT, AUTOMATED 289 10^3/uL (150-450); RED BLOOD COUNT 2.66 10^6/uL (4.30-6.10)
[2024-03-31 22:45] LABS: INR 1.16; PROTHROMBIN TIME 14.5 SECONDS (12.5-14.5)
[2024-03-31 22:58] LABS: ALKALINE PHOSPHATASE 55 U/L (46-116); ALT/SGPT 11 U/L (7.0-40); AST/SGOT 13 U/L (<34); BILIRUBIN,DIRECT < 0.1 MG/DL (<0.4); BILIRUBIN,TOTAL < 0.2 MG/DL (0.3-1.2); BLOOD UREA NITROGEN 49 MG/DL (9-23); CARBON DIOXIDE LEVEL 24 MMOL/L (20-31); CHLORIDE LEVEL 111 MMOL/L (98-107); CREATININE FOR GFR 2.19 MG/DL (0.70-1.30); GLOMERULAR FILTRATION RATE 30.7 (>35); GLUCOSE, FASTING 148 MG/DL (74-106); POTASSIUM SERUM 4.7 MMOL/L (3.5-5.1); SODIUM LEVEL 140 MMOL/L (136-145); TOTAL PROTEIN 6.7 G/DL (5.7-8.2)
[2024-03-31] MEDS ORDERED: ENOXAPARIN 100MG/1ML SYRINGE (J1650 PER 10MG) SC ONE (23:55)
[2024-04-01] MEDS ORDERED: MAALOX 30 ML SUSP *UDC PO PRN ×2 (00:45→01:05)
[2024-04-01] MEDS ORDERED: ACETAMINOPHEN TAB 650MG DOSE (2X325MG) PO PRN (00:45)
[2024-04-01] MEDS ORDERED: MOM 30ML SUSPENSION UDC PO PRN (00:45)
[2024-04-01] MEDS: ENOXAPARIN 80MG/0.8ML SYRINGE (J1650 PER 10MG) SC ONE (02:02)
[2024-04-01] MEDS ORDERED: DOCUSATE SODIUM 100MG CAPSULE PO SCH (09:00)
[2024-04-01] MEDS: DOCUSATE SODIUM 100MG CAPSULE PO SCH (09:08)
[2024-04-01] MEDS ORDERED: HYDR50TA46 PO (09:22)
[2024-04-01] MEDS ORDERED: HOME MED LIST COMPLETE! XX SCH ×2 (09:25)
[2024-04-01] MEDS: APIXABAN 5 MG TAB (ELIQUIS) PO SCH (12:11)
[2024-04-01 15:23] VITALS: BP 154/59; TEMP 97.7; O2SAT 100
[2024-04-01 19:33] VITALS: BP 124/54; TEMP 97.9; O2SAT 96
[2024-04-02] MEDS: ACETAMINOPHEN TAB 650MG DOSE (2X325MG) PO PRN (08:19)
[2024-04-02 08:41] LABS: HEMATOCRIT 27.9 % (42.0-52.0); HEMOGLOBIN 8.8 g/dl (13.5-17.5); MEAN CORPUSCULAR HEMOGLOBIN 32.6 pg (27.0-33.0); MEAN CORPUSCULAR HGB CONC 31.5 g/dl (32.0-36.5); MEAN CORPUSCULAR VOLUME 103.3 fl (80.0-96.0); PLATELET COUNT, AUTOMATED 282 10^3/uL (150-450); WHITE BLOOD COUNT 5.7 10^3/uL (4.0-10.0)
[2024-04-02] MEDS: ASPIRIN 81MG ENTERIC TABLET PO SCH (09:00)
[2024-04-02 09:05] LABS: ALBUMIN 2.6 G/DL (3.2-5.2); BILIRUBIN,TOTAL 0.3 MG/DL (0.3-1.2); CALCIUM LEVEL 8.8 MG/DL (8.3-10.6); CREATININE FOR GFR 1.66 MG/DL (0.70-1.30); GLOMERULAR FILTRATION RATE 42.2 (>35); POTASSIUM SERUM 4.3 MMOL/L (3.5-5.1); TOTAL PROTEIN 5.9 G/DL (5.7-8.2)
[2024-04-02] MEDS ORDERED: NITROGLYCERIN 0.4MG SUBL TABLET SL PRN (11:40)
[2024-04-02 13:00] VITALS: BP 133/57; TEMP 97.7; O2SAT 98
[2024-04-02] MEDS: SERTRALINE HCL 25 MG TABLET PO SCH (13:52)
[2024-04-02] MEDS: FOLIC ACID 1MG TAB PO SCH (13:52)
[2024-04-02] MEDS: DONEPEZIL 5 MG TAB PO SCH (13:53)
[2024-04-02] MEDS: MIRTAZAPINE 7.5MG PER 1/2 TABLET PO SCH (17:21)
[2024-04-02 20:04] VITALS: BP 126/58; TEMP 97.9; O2SAT 93
[2024-04-02] MEDS: ATORVASTATIN 20 MG TAB PO SCH (20:31)
[2024-04-02] MEDS: TAMSULOSIN 0.4 MG CAP PO SCH (20:32)
[2024-04-03 04:15] VITALS: BP 132/61; TEMP 97.7; O2SAT 99
[2024-04-03] MEDS ORDERED: FUROSEMIDE 20 MG TAB PO SCH (09:00)
[2024-04-03] MEDS: FUROSEMIDE 20 MG TAB PO SCH (09:22)
[2024-04-03 10:10] LABS: BASO % 0.7 % (0.0-1.0); EOS # 0.8 10^3/uL (0.0-0.5); EOS % 14.7 % (0.0-3.0); HEMATOCRIT 28.5 % (42.0-52.0); HEMOGLOBIN 8.7 g/dl (13.5-17.5); LYMPH # 1.7 10^3/uL (1.5-5.0); LYMPH % 30.8 % (24.0-44.0); MEAN CORPUSCULAR HEMOGLOBIN 31.6 pg (27.0-33.0); MEAN CORPUSCULAR HGB CONC 30.5 g/dl (32.0-36.5); MEAN CORPUSCULAR VOLUME 103.6 fl (80.0-96.0); MONO # 0.5 10^3/uL (0.0-0.8); MONO % 8.9 % (2.0-8.0); NEUTROPHILS # 2.5 10^3/uL (1.5-8.5); NEUTROPHILS % 44.5 % (36.0-66.0); PLATELET COUNT, AUTOMATED 308 10^3/uL (150-450); RED BLOOD COUNT 2.75 10^6/uL (4.30-6.10); WHITE BLOOD COUNT 5.6 10^3/uL (4.0-10.0)
[2024-04-03 10:33] LABS: CALCIUM LEVEL 8.6 MG/DL (8.3-10.6); CREATININE FOR GFR 1.63 MG/DL (0.70-1.30); GLOMERULAR FILTRATION RATE 43.1 (>35); POTASSIUM SERUM 4.2 MMOL/L (3.5-5.1)
[2024-04-03 12:00] VITALS: BP 139/53; TEMP 97.7; O2SAT 99
[2024-04-03 20:35] VITALS: BP 160/77; TEMP 97.9; O2SAT 99
[2024-04-04 03:51] VITALS: BP 145/50; TEMP 97.7; O2SAT 97
[2024-04-04 07:03] LABS: BASO # 0.1 10^3/uL (0.0-0.2); EOS # 0.7 10^3/uL (0.0-0.5); EOS % 14.6 % (0.0-3.0); HEMATOCRIT 27.9 % (42.0-52.0); HEMOGLOBIN 8.8 g/dl (13.5-17.5); LYMPH # 1.8 10^3/uL (1.5-5.0); LYMPH % 36.6 % (24.0-44.0); MEAN CORPUSCULAR HEMOGLOBIN 32.4 pg (27.0-33.0); MEAN CORPUSCULAR HGB CONC 31.5 g/dl (32.0-36.5); MEAN CORPUSCULAR VOLUME 102.6 fl (80.0-96.0); MONO # 0.6 10^3/uL (0.0-0.8); NEUTROPHILS # 1.8 10^3/uL (1.5-8.5); NEUTROPHILS % 35.6 % (36.0-66.0); PLATELET COUNT, AUTOMATED 280 10^3/uL (150-450); RED BLOOD COUNT 2.72 10^6/uL (4.30-6.10)
[2024-04-04 07:46] LABS: CALCIUM LEVEL 8.4 MG/DL (8.3-10.6); CREATININE FOR GFR 1.73 MG/DL (0.70-1.30); GLOMERULAR FILTRATION RATE 40.3 (>35); POTASSIUM SERUM 4.4 MMOL/L (3.5-5.1)
[2024-04-04 12:00] VITALS: BP 138/46; TEMP 97.9; O2SAT 96
[2024-04-04 19:36] VITALS: BP 116/75; TEMP 97.5; O2SAT 96
[2024-04-05 05:03] VITALS: BP 130/78; TEMP 98; O2SAT 95
[2024-04-05] MEDS: MOM 30ML SUSPENSION UDC PO PRN (10:03)
[2024-04-05 12:00] VITALS: BP 120/60; TEMP 98.1; O2SAT 96
[2024-04-05 20:00] VITALS: BP 161/66; TEMP 98.1; O2SAT 96
[2024-04-05] MEDS ORDERED: OLANZapine INTRAMUSCULAR 10MG VIAL IM PRN (22:50)
[2024-04-06 04:00] VITALS: BP 127/58; TEMP 97.5; O2SAT 98
[2024-04-06 12:00] VITALS: BP 133/51; TEMP 97.9; O2SAT 97
[2024-04-06 20:00] VITALS: BP 141/49; TEMP 98.1; O2SAT 97
[2024-04-07 04:00] VITALS: BP 135/53; TEMP 97.5; O2SAT 96
[2024-04-07] MEDS: HALOPERIDOL LACTATE 5MG/ML VIAL IM ONE (09:52)
[2024-04-07] MEDS ORDERED: SERO1TAB3 PO (12:42)
[2024-04-07] MEDS ORDERED: COLA100C5 PO (12:42)
[2024-04-07] MEDS ORDERED: ELIQ5TAB PO (12:42)
[2024-04-07] MEDS ORDERED: FURO20TA2 PO (12:42)
[2024-04-07] MEDS ORDERED: ASPI81CH33 PO (20:17)
== END 2024-04-07 17:44 | disposition home health service (06) | DRG 300 ==
LOC: M ED 21:12 → M ED INP 04-01 00:43 → M MSPAV 04-01 15:30
PROVIDERS: ADMIT Internal Medicine; ATTEND Internal Medicine
DX: I82.411 Acute embolism and thrombosis of right femoral vein (principal); I50.32 Chronic diastolic (congestive) heart failure; I13.0 Hypertensive heart and chronic kidney disease with heart failure and stage 1 through stage 4 chronic kidney disease, or unspecified chronic kidney disease; N17.9 Acute kidney failure, unspecified; F03.918 Unspecified dementia, unspecified severity, with other behavioral disturbance; I82.441 Acute embolism and thrombosis of right tibial vein; E11.22 Type 2 diabetes mellitus with diabetic chronic kidney disease; N18.30 Chronic kidney disease, stage 3 unspecified; I25.10 Atherosclerotic heart disease of native coronary artery without angina pectoris; I35.1 Nonrheumatic aortic (valve) insufficiency; I27.20 Pulmonary hypertension, unspecified; D50.9 Iron deficiency anemia, unspecified; R91.8 Other nonspecific abnormal finding of lung field; F41.1 Generalized anxiety disorder; F79 Unspecified intellectual disabilities; Z66 Do not resuscitate; K21.9 Gastro-esophageal reflux disease without esophagitis; F32.A Depression, unspecified; I25.2 Old myocardial infarction; R33.8 Other retention of urine; E11.51 Type 2 diabetes mellitus with diabetic peripheral angiopathy without gangrene; E78.5 Hyperlipidemia, unspecified; R53.1 Weakness; R53.81 Other malaise; R26.89 Other abnormalities of gait and mobility; Z86.16 Personal history of COVID-19; Z79.02 Long term (current) use of antithrombotics/antiplatelets; Z79.82 Long term (current) use of aspirin; Z79.899 Other long term (current) drug therapy

== ENCOUNTER → 2024-04-09 | Outpatient (REF) | payer MEDICARE ==
[~2024-04-09] MED LIST changes: +COLA100C5 PO; +DOCU100C16 PO; +ELIQ5TAB PO; +QUET1TAB17 PO; +SERO1TAB3 PO
[2024-04-09 17:37] LABS: PERCENT SATURATION 13.2 % (19.7-50.0)
[2024-04-09 17:43] LABS: FERRITIN 372.5 NG/ML (10.5-307.3)
== END ==
LOC: M LAB REF 16:23
PROVIDERS: ATTEND Internal Medicine
DX: D50.9 Iron deficiency anemia, unspecified (principal)

== ENCOUNTER 2024-04-10 23:27 | Inpatient (IN) | payer MEDICARE ==
[~2024-04-10] VITALS: Ht 175.3 cm; Wt 80.0 kg
[~2024-04-10 23:27] MED LIST changes: -DOCU100C16 PO; -QUET1TAB17 PO
[2024-04-11] VITALS (8 sets, daily range): BP systolic 96–127; BP diastolic 36–56; TEMP 97.9–98.6; O2SAT 95–100
[2024-04-11 01:59] LABS: VENOUS BASE EXCESS -4.3 (-2.0-2.0); VENOUS HCO3 21.8 MMOL/L (23.0-27.0); VENOUS O2 SATURATION 80.2 % (60.0-80.0); VENOUS PARTIAL PRESSURE CO2 44.5 mmHg (38.0-50.0); VENOUS PARTIAL PRESSURE O2 46.5 mmHg (30.0-50.0); VENOUS PH 7.308 UNITS (7.330-7.430); VENOUS STANDARD HCO3 20.6 MMOL/L; VENOUS TOTAL CO2 23.2 MMOL/L (24.0-28.0)
[2024-04-11 02:05] LABS: BASO % 0.5 % (0.0-1.0); EOS # 0.2 10^3/uL (0.0-0.5); EOS % 2.8 % (0.0-3.0); HEMATOCRIT 27.9 % (42.0-52.0); HEMOGLOBIN 8.7 g/dl (13.5-17.5); LYMPH # 1.5 10^3/uL (1.5-5.0); LYMPH % 18.5 % (24.0-44.0); MEAN CORPUSCULAR HEMOGLOBIN 32.6 pg (27.0-33.0); MEAN CORPUSCULAR HGB CONC 31.2 g/dl (32.0-36.5); MEAN CORPUSCULAR VOLUME 104.5 fl (80.0-96.0); MONO # 0.6 10^3/uL (0.0-0.8); MONO % 7.4 % (2.0-8.0); NEUTROPHILS # 5.8 10^3/uL (1.5-8.5); NEUTROPHILS % 70.4 % (36.0-66.0); PLATELET COUNT, AUTOMATED 286 10^3/uL (150-450); RED BLOOD COUNT 2.67 10^6/uL (4.30-6.10); WHITE BLOOD COUNT 8.3 10^3/uL (4.0-10.0)
[2024-04-11 02:32] LABS: CPK CREATINE PHOSPHOKINASE 99 U/L (46-171)
[2024-04-11 02:33] LABS: ALBUMIN 3.2 G/DL (3.2-5.2); ALKALINE PHOSPHATASE 65 U/L (46-116); ALT/SGPT 19 U/L (7.0-40); AST/SGOT 19 U/L (<34); BILIRUBIN,DIRECT 0.2 MG/DL (<0.4); BILIRUBIN,TOTAL 0.3 MG/DL (0.3-1.2); BLOOD UREA NITROGEN 57 MG/DL (9-23); CALCIUM LEVEL 8.7 MG/DL (8.3-10.6); CARBON DIOXIDE LEVEL 23 MMOL/L (20-31); CHLORIDE LEVEL 110 MMOL/L (98-107); CK-MB VALUE MASS < 1.0 NG/ML (<3.6); CREATININE FOR GFR 2.78 MG/DL (0.70-1.30); GLOMERULAR FILTRATION RATE 23.3 (>35); GLUCOSE, FASTING 137 MG/DL (74-106); MB/CK RELATIVE INDEX 1.01 (< OR =4); SODIUM LEVEL 140 MMOL/L (136-145)
[2024-04-11 02:34] LABS: THYROID STIMULATING HORMONE 0.968 uIU/ML (0.55-4.78)
[2024-04-11 02:35] LABS: FREE T4 1.08 NG/DL (0.89-1.76)
[2024-04-11] MEDS: NS 1,000 ML IV ONE (08:42)
[2024-04-11] MEDS ORDERED: **NOTE PATIENT COMMENT** MISC XX SCH ×2 (09:35)
[2024-04-11] MEDS ORDERED: ELIQ5TAB PO (09:48)
[2024-04-11] MEDS ORDERED: DOCU100C16 PO (09:50)
[2024-04-11] MEDS ORDERED: FURO20TA2 PO (09:55)
[2024-04-11] MEDS ORDERED: QUET1TAB17 PO (09:55)
[2024-04-11] MEDS ORDERED: CLOP75TA2 PO (09:59)
[2024-04-11] MEDS ORDERED: HOME MED LIST COMPLETE! XX SCH (10:05)
[2024-04-11] MEDS ORDERED: ALBUTEROL 90 MCG/ACT 8GM HFA INHALER INH PRN (13:00)
[2024-04-11] MEDS: NS 0.45% 1,000 ML IV SCH (13:33)
[2024-04-11] MEDS: **hydrALAZINE** 50 MG TAB PO SCH (15:01)
[2024-04-11] MEDS: QUEtiapine FUMARATE 12.5 MG HALF-TAB PO SCH (21:45)
[2024-04-11] MEDS: DOCUSATE SODIUM 100MG CAPSULE PO SCH (21:45)
[2024-04-11] MEDS: ASPIRIN 81MG CHEW TABLET PO SCH (21:45)
[2024-04-11] MEDS: TAMSULOSIN 0.4 MG CAP PO SCH (21:45)
[2024-04-11] MEDS: ATORVASTATIN 20 MG TAB PO SCH (21:45)
[2024-04-11] MEDS: APIXABAN 5 MG TAB (ELIQUIS) PO SCH (21:46)
[2024-04-12] VITALS (7 sets, daily range): BP systolic 104–145; BP diastolic 49–70; TEMP 97.6–98.9; O2SAT 96–100
[2024-04-12 06:25] LABS: HEMATOCRIT 27.9 % (42.0-52.0); HEMOGLOBIN 8.5 g/dl (13.5-17.5); MEAN CORPUSCULAR HEMOGLOBIN 31.3 pg (27.0-33.0); MEAN CORPUSCULAR HGB CONC 30.5 g/dl (32.0-36.5); MEAN CORPUSCULAR VOLUME 102.6 fl (80.0-96.0); PLATELET COUNT, AUTOMATED 275 10^3/uL (150-450); RED BLOOD COUNT 2.72 10^6/uL (4.30-6.10); WHITE BLOOD COUNT 5.6 10^3/uL (4.0-10.0)
[2024-04-12 06:55] LABS: CALCIUM LEVEL 8.7 MG/DL (8.3-10.6); CREATININE FOR GFR 2.18 MG/DL (0.70-1.30); GLOMERULAR FILTRATION RATE 30.8 (>35); MAGNESIUM LEVEL 2.1 MG/DL (1.8-2.4); POTASSIUM SERUM 4.7 MMOL/L (3.5-5.1)
[2024-04-12] MEDS: amLODIPine 5 MG TAB PO SCH (09:00)
[2024-04-12] MEDS: FOLIC ACID 1MG TAB PO SCH (09:45)
[2024-04-12] MEDS: CLOPIDOGREL 75 MG TAB PO SCH (09:45)
[2024-04-12] MEDS: SERTRALINE HCL 25 MG TABLET PO SCH (09:45)
[2024-04-12] MEDS: DONEPEZIL 5 MG TAB PO SCH (09:49)
[2024-04-12] MEDS: FAMOTIDINE 20 MG TAB PO PRN (20:52)
[2024-04-13 04:00] VITALS: BP 134/62; TEMP 98.6; O2SAT 99
[2024-04-13 08:00] VITALS: BP 142/64; TEMP 98.2; O2SAT 98
[2024-04-13 12:00] VITALS: BP 111/42; TEMP 98.2; O2SAT 98
[2024-04-13 16:00] VITALS: BP 130/47; TEMP 99; O2SAT 98
[2024-04-13] MEDS: ACETAMINOPHEN 325 MG TAB PO PRN (18:51)
[2024-04-13 20:40] VITALS: BP 121/84; TEMP 98.1; O2SAT 97
[2024-04-14 03:55] VITALS: BP_SYST 116; BP_SYST 118; BP_DIAS 40; BP_DIAS 66; TEMP 98.2; O2SAT 98
[2024-04-14 11:09] LABS: HEMATOCRIT 28.2 % (42.0-52.0); HEMOGLOBIN 8.9 g/dl (13.5-17.5); MEAN CORPUSCULAR HEMOGLOBIN 32.4 pg (27.0-33.0); MEAN CORPUSCULAR HGB CONC 31.6 g/dl (32.0-36.5); MEAN CORPUSCULAR VOLUME 102.5 fl (80.0-96.0); PLATELET COUNT, AUTOMATED 267 10^3/uL (150-450); RED BLOOD COUNT 2.75 10^6/uL (4.30-6.10)
[2024-04-14 11:45] LABS: CALCIUM LEVEL 8.7 MG/DL (8.3-10.6); CREATININE FOR GFR 1.78 MG/DL (0.70-1.30); MAGNESIUM LEVEL 1.9 MG/DL (1.8-2.4); POTASSIUM SERUM 4.6 MMOL/L (3.5-5.1)
[2024-04-14] MEDS: NYSTATIN 500,000U/5ML SUSP UDC SS SCH (17:01)
[2024-04-15 04:00] VITALS: BP 129/58; TEMP 98.1; O2SAT 98
[2024-04-15 20:30] VITALS: BP 106/65; TEMP 99; O2SAT 97
[2024-04-16 04:00] VITALS: BP 116/38; TEMP 98.1
[2024-04-16 05:52] LABS: HEMATOCRIT 29.2 % (42.0-52.0); MEAN CORPUSCULAR HEMOGLOBIN 31.8 pg (27.0-33.0); MEAN CORPUSCULAR HGB CONC 30.8 g/dl (32.0-36.5); MEAN CORPUSCULAR VOLUME 103.2 fl (80.0-96.0); PLATELET COUNT, AUTOMATED 285 10^3/uL (150-450); RED BLOOD COUNT 2.83 10^6/uL (4.30-6.10); WHITE BLOOD COUNT 5.5 10^3/uL (4.0-10.0)
[2024-04-16 06:07] LABS: CALCIUM LEVEL 8.9 MG/DL (8.3-10.6); CREATININE FOR GFR 2.11 MG/DL (0.70-1.30); MAGNESIUM LEVEL 2.1 MG/DL (1.8-2.4); POTASSIUM SERUM 4.5 MMOL/L (3.5-5.1)
[2024-04-17 04:00] VITALS: BP 117/40; TEMP 97.7; O2SAT 94
[2024-04-17] MEDS ORDERED: OLANZapine INTRAMUSCULAR 10MG VIAL IM PRN (21:55)
[2024-04-19 04:00] VITALS: BP 120/48; TEMP 98.1; O2SAT 98
[2024-04-20 04:00] VITALS: BP 120/42; TEMP 97.9; O2SAT 96
[2024-04-20] MEDS: SENOKOT S TAB PO SCH (09:00)
[2024-04-20] MEDS: BISACODYL 10MG SUPP PR ONE (15:00)
[2024-04-21 03:30] VITALS: BP 128/46; TEMP 97.9; O2SAT 94
[2024-04-21] MEDS ORDERED: BISACODYL 10MG SUPP PR PRN (09:00)
[2024-04-22 05:00] VITALS: BP 110/46; TEMP 98.1; O2SAT 96
[2024-04-22 13:00] VITALS: BP 100/42
[2024-04-22 13:53] VITALS: BP 79/55
[2024-04-22 13:54] VITALS: BP 100/42
[2024-04-22 15:57] VITALS: BP 87/54
[2024-04-22 15:58] VITALS: BP 94/40
[2024-04-23 03:47] VITALS: BP 111/43; TEMP 97.7; O2SAT 92
== END 2024-04-23 13:10 | disposition home or self-care (01) | DRG 683 ==
LOC: EDSEX 23:27 → EDBD 23:27 → M ED 23:27 → M ED INP 04-11 09:34 → M MSPAV 04-11 12:35
PROVIDERS: ADMIT Family Medicine; ATTEND Student in an Organized Health Care Education/Training Program
DX: N17.9 Acute kidney failure, unspecified (principal); I13.0 Hypertensive heart and chronic kidney disease with heart failure and stage 1 through stage 4 chronic kidney disease, or unspecified chronic kidney disease; I50.32 Chronic diastolic (congestive) heart failure; I69.351 Hemiplegia and hemiparesis following cerebral infarction affecting right dominant side; F03.918 Unspecified dementia, unspecified severity, with other behavioral disturbance; Z66 Do not resuscitate; R26.89 Other abnormalities of gait and mobility; N18.30 Chronic kidney disease, stage 3 unspecified; I25.10 Atherosclerotic heart disease of native coronary artery without angina pectoris; I25.2 Old myocardial infarction; E11.22 Type 2 diabetes mellitus with diabetic chronic kidney disease; E78.5 Hyperlipidemia, unspecified; I35.0 Nonrheumatic aortic (valve) stenosis; I27.20 Pulmonary hypertension, unspecified; E11.51 Type 2 diabetes mellitus with diabetic peripheral angiopathy without gangrene; I73.9 Peripheral vascular disease, unspecified; K21.9 Gastro-esophageal reflux disease without esophagitis; N40.0 Benign prostatic hyperplasia without lower urinary tract symptoms; Z86.16 Personal history of COVID-19; Z86.718 Personal history of other venous thrombosis and embolism; R91.8 Other nonspecific abnormal finding of lung field

== ENCOUNTER 2024-05-09 16:29 | Emergency (ER) | payer MEDICARE ==
[~2024-05-09] VITALS: Ht 175.3 cm; Wt 83.4 kg
[~2024-05-09 16:29] MED LIST changes: +DOCU100C16 PO; +QUET1TAB17 PO
[2024-05-09 16:42] VITALS: TEMP 97.1
[2024-05-09 18:37] LABS: BASO % 0.6 % (0.0-1.0); EOS # 0.4 10^3/uL (0.0-0.5); EOS % 8.8 % (0.0-3.0); HEMATOCRIT 28.3 % (42.0-52.0); HEMOGLOBIN 8.9 g/dl (13.5-17.5); MEAN CORPUSCULAR HEMOGLOBIN 32.7 pg (27.0-33.0); MEAN CORPUSCULAR HGB CONC 31.4 g/dl (32.0-36.5); MONO # 0.5 10^3/uL (0.0-0.8); NEUTROPHILS # 2.1 10^3/uL (1.5-8.5); NEUTROPHILS % 41.4 % (36.0-66.0); RED BLOOD COUNT 2.72 10^6/uL (4.30-6.10)
[2024-05-09 19:11] LABS: ALBUMIN 3.3 G/DL (3.2-5.2); ALKALINE PHOSPHATASE 50 U/L (40-129); ALT/SGPT 22 U/L (7.0-40); AST/SGOT 36 U/L (<34); BILIRUBIN,DIRECT < 0.1 MG/DL (<0.4); BILIRUBIN,TOTAL 0.2 MG/DL (0.3-1.2); BLOOD UREA NITROGEN 58 MG/DL (9-23); CALCIUM LEVEL 8.9 MG/DL (8.3-10.6); CARBON DIOXIDE LEVEL 19 MMOL/L (20-31); CHLORIDE LEVEL 111 MMOL/L (98-107); CPK CREATINE PHOSPHOKINASE 88 U/L (46-171); CREATININE FOR GFR 1.98 MG/DL (0.70-1.30); GLOMERULAR FILTRATION RATE 34.5 (>35); GLUCOSE, FASTING 110 MG/DL (74-106); MAGNESIUM LEVEL 2.2 MG/DL (1.8-2.4); POTASSIUM SERUM 5.9 MMOL/L (3.5-5.1); SODIUM LEVEL 137 MMOL/L (136-145); THYROID STIMULATING HORMONE 2.145 uIU/ML (0.55-4.78); TOTAL PROTEIN 7.3 G/DL (5.7-8.2)
[2024-05-09 20:15] VITALS: BP 116/55; O2SAT 99
[2024-05-09] MEDS: ACETAMINOPHEN 325 MG TAB PO ONE (20:28)
== END 2024-05-09 20:41 | disposition home or self-care (01) ==
LOC: M ED 16:29 → EDBD 16:29 → M ED 20:41
DX: R53.1 Weakness (principal); M79.604 Pain in right leg; M79.605 Pain in left leg; E11.9 Type 2 diabetes mellitus without complications; I11.0 Hypertensive heart disease with heart failure; I25.2 Old myocardial infarction; E78.5 Hyperlipidemia, unspecified; K21.9 Gastro-esophageal reflux disease without esophagitis; K80.20 Calculus of gallbladder without cholecystitis without obstruction; Z79.01 Long term (current) use of anticoagulants; Z79.899 Other long term (current) drug therapy; Z79.82 Long term (current) use of aspirin

== ENCOUNTER 2024-06-30 17:04 | Inpatient (IN) | payer MEDICARE ==
[~2024-06-30] VITALS: Ht 175.3 cm; Wt 69.0 kg
[2024-06-30 17:34] LABS: BASO % 0.5 % (0.0-1.0); EOS # 0.1 10^3/uL (0.0-0.5); EOS % 1.1 % (0.0-3.0); HEMOGLOBIN 12.3 g/dl (13.5-17.5); LYMPH % 12.1 % (24.0-44.0); MEAN CORPUSCULAR HEMOGLOBIN 31.3 pg (27.0-33.0); MEAN CORPUSCULAR HGB CONC 33.2 g/dl (32.0-36.5); MEAN CORPUSCULAR VOLUME 94.1 fl (80.0-96.0); MONO # 0.8 10^3/uL (0.0-0.8); NEUTROPHILS # 6.1 10^3/uL (1.5-8.5); NEUTROPHILS % 75.8 % (36.0-66.0); PLATELET COUNT, AUTOMATED 345 10^3/uL (150-450); RED BLOOD COUNT 3.93 10^6/uL (4.30-6.10)
[2024-06-30] MEDS: NS (Normal Saline) 0.9% 1,000 ML IV SCH (17:49)
[2024-06-30 18:00] LABS: LIPASE 58 U/L (12-53)
[2024-06-30 18:11] LABS: ALBUMIN 3.6 G/DL (3.2-5.2); ALKALINE PHOSPHATASE 87 U/L (40-129); ALT/SGPT 15 U/L (7.0-40); AST/SGOT 17 U/L (<34); BILIRUBIN,DIRECT < 0.1 MG/DL (<0.4); BILIRUBIN,TOTAL 0.2 MG/DL (0.3-1.2); BLOOD UREA NITROGEN 86 MG/DL (9-23); CALCIUM LEVEL 9.9 MG/DL (8.3-10.6); CARBON DIOXIDE LEVEL 17 MMOL/L (20-31); CHLORIDE LEVEL 102 MMOL/L (98-107); CREATININE FOR GFR 3.46 MG/DL (0.70-1.30); GLOMERULAR FILTRATION RATE 18.1 (>35); GLUCOSE, FASTING 156 MG/DL (74-106); MAGNESIUM LEVEL 2.3 MG/DL (1.8-2.4); POTASSIUM SERUM 5.3 MMOL/L (3.5-5.1); SODIUM LEVEL 131 MMOL/L (136-145)
[2024-06-30 18:14] LABS: CPK CREATINE PHOSPHOKINASE 108 U/L (46-171); URIC ACID 10.1 MG/DL (3.7-9.2)
[2024-06-30] MEDS: LIDOCAINE 2% 5ML JELLY UROJET TOP ONE (18:23)
[2024-06-30] MEDS ORDERED: HOME MED LIST COMPLETE! XX SCH (18:30)
[2024-06-30 18:35] LABS: OSMOLALITY SERUM 314 MOSM/KG (280-301)
[2024-06-30] MEDS ORDERED: MOM 30ML SUSPENSION UDC PO PRN (20:05)
[2024-06-30] MEDS ORDERED: ALBUTEROL 90 MCG/ACT 8GM HFA INHALER INH PRN (20:05)
[2024-06-30] MEDS ORDERED: FAMOTIDINE 20 MG TAB PO PRN (20:05)
[2024-06-30] MEDS: LR 1,000 ML IV ONE (20:51)
[2024-06-30] MEDS: ONDANSETRON 4MG 2ML VIAL IV PRN (21:14)
[2024-06-30 22:05] VITALS: BP 116/45; TEMP 97.9; O2SAT 99
[2024-06-30] MEDS: ATORVASTATIN 20 MG TAB PO SCH (22:31)
[2024-06-30] MEDS: QUEtiapine FUMARATE 12.5 MG HALF-TAB PO SCH (22:31)
[2024-06-30] MEDS: APIXABAN 5 MG TAB (ELIQUIS) PO SCH (22:32)
[2024-06-30] MEDS: TAMSULOSIN 0.4 MG CAP PO SCH (22:34)
[2024-06-30] MEDS: metroNIDAZOLE 500 MG in IV 1 EA IV SCH (22:34)
[2024-06-30] MEDS: **hydrALAZINE** 50 MG TAB PO SCH (22:37)
[2024-06-30] MEDS: DOCUSATE SODIUM 100MG CAPSULE PO SCH (22:38)
[2024-06-30] MEDS: NS (Normal Saline) 0.9% 1,000 ML IV ONE (22:41)
[2024-06-30] MEDS ORDERED: DEXTROSE 50% 50ML SYRINGE IV PRN (23:30)
[2024-06-30] MEDS ORDERED: GLUCAGON INJ 1MG VIAL SC PRN (23:30)
[2024-06-30] MEDS ORDERED: GLUCOSE 4 GM CHEW PO PRN (23:30)
[2024-06-30] MEDS: INSULIN LISPRO (NovoLOG) PER UNIT SC SCH (23:37)
[2024-07-01] VITALS (8 sets, daily range): BP systolic 92–127; BP diastolic 30–89; TEMP 97.7–98.4; O2SAT 94–100
[2024-07-01 02:49] LABS: KETONE, URINE AUTO RFX NEGATIVE (NEGATIVE)
[2024-07-01 02:50] LABS: LEUKOCYTE ESTERASE UR AUTO RFX 2+ (NEGATIVE)
[2024-07-01] MEDS: NS 500 ML IV ONE (05:25)
[2024-07-01] MEDS ORDERED: LR 1,000 ML IV ONE (07:12)
[2024-07-01 07:47] LABS: HEMATOCRIT 30.5 % (42.0-52.0); MEAN CORPUSCULAR HEMOGLOBIN 31.3 pg (27.0-33.0); MEAN CORPUSCULAR HGB CONC 32.8 g/dl (32.0-36.5); MEAN CORPUSCULAR VOLUME 95.3 fl (80.0-96.0); PLATELET COUNT, AUTOMATED 301 10^3/uL (150-450); WHITE BLOOD COUNT 6.4 10^3/uL (4.0-10.0)
[2024-07-01] MEDS: INSULIN LISPRO (NovoLOG) PER UNIT SC SCH (07:51)
[2024-07-01] MEDS: DONEPEZIL 5 MG TAB PO SCH (07:52)
[2024-07-01] MEDS: FOLIC ACID 1MG TAB PO SCH (07:53)
[2024-07-01] MEDS: CLOPIDOGREL 75 MG TAB PO SCH (07:54)
[2024-07-01] MEDS: amLODIPine 5 MG TAB PO SCH (07:54)
[2024-07-01] MEDS: SERTRALINE HCL 25 MG TABLET PO SCH (07:54)
[2024-07-01 07:58] LABS: ALBUMIN 2.9 G/DL (3.2-5.2); BILIRUBIN,TOTAL 0.2 MG/DL (0.3-1.2); CALCIUM LEVEL 8.8 MG/DL (8.3-10.6); CREATININE FOR GFR 3.32 MG/DL (0.70-1.30); TOTAL PROTEIN 7.1 G/DL (5.7-8.2)
[2024-07-01] MEDS: cefTRIAXone SOD 1 GM in DEXTROSE 5% (D5W) ADV/MINI-BAG 50 ML IV SCH (11:31)
[2024-07-01] MEDS: SODIUM BICARBONATE 325 MG TAB PO SCH (11:31)
[2024-07-01] MEDS: NS (Normal Saline) 0.9% 1,000 ML IV SCH (12:35)
[2024-07-01] MEDS: NYSTATIN 100,000 UNITS/GM TOPICAL PWD 15GM TOP PRN (14:55)
[2024-07-01] MEDS: NITROGLYCERIN 0.4MG SUBL TABLET SL STA (15:39)
[2024-07-01] MEDS: MAALOX 30 ML SUSP *UDC PO ONE (15:40)
[2024-07-01] MEDS: SUCRALFATE SUSP 1GM/10ML UD PO ONE (15:40)
[2024-07-01 16:23] LABS: CK-MB VALUE MASS 1.5 NG/ML (<3.6); CPK CREATINE PHOSPHOKINASE 81 U/L (46-171); MB/CK RELATIVE INDEX 1.85 (< OR =4)
[2024-07-01] MEDS: RANOLAZINE 500MG ER TAB PO ONE (16:25)
[2024-07-01] MEDS: SUCRALFATE SUSP 1GM/10ML UD PO SCH (17:19)
[2024-07-01 19:43] LABS: LIPASE 141 U/L (12-53)
[2024-07-01 19:44] LABS: AMYLASE 116 U/L (30-118)
[2024-07-01 19:45] LABS: ALBUMIN 2.6 G/DL (3.2-5.2); ALKALINE PHOSPHATASE 64 U/L (40-129); ALT/SGPT 9 U/L (7.0-40); AST/SGOT 12 U/L (<34); BILIRUBIN,DIRECT < 0.1 MG/DL (<0.4); BILIRUBIN,TOTAL < 0.2 MG/DL (0.3-1.2); TOTAL PROTEIN 6.8 G/DL (5.7-8.2)
[2024-07-01 22:21] LABS: CK-MB VALUE MASS 1.3 NG/ML (<3.6)
[2024-07-01 22:23] LABS: MB/CK RELATIVE INDEX 1.85 (< OR =4)
[2024-07-02 04:00] VITALS: BP 119/49; TEMP 98.8; O2SAT 96
[2024-07-02 11:31] LABS: BASO % 0.5 % (0.0-1.0); EOS # 0.1 10^3/uL (0.0-0.5); EOS % 1.6 % (0.0-3.0); HEMATOCRIT 27.3 % (42.0-52.0); HEMOGLOBIN 8.7 g/dl (13.5-17.5); LYMPH # 1.1 10^3/uL (1.5-5.0); LYMPH % 19.7 % (24.0-44.0); MEAN CORPUSCULAR HEMOGLOBIN 30.6 pg (27.0-33.0); MEAN CORPUSCULAR HGB CONC 31.9 g/dl (32.0-36.5); MEAN CORPUSCULAR VOLUME 96.1 fl (80.0-96.0); MONO # 0.7 10^3/uL (0.0-0.8); MONO % 12.2 % (2.0-8.0); NEUTROPHILS # 3.6 10^3/uL (1.5-8.5); NEUTROPHILS % 65.3 % (36.0-66.0); PLATELET COUNT, AUTOMATED 273 10^3/uL (150-450); RED BLOOD COUNT 2.84 10^6/uL (4.30-6.10); WHITE BLOOD COUNT 5.5 10^3/uL (4.0-10.0)
[2024-07-02 12:02] LABS: ALBUMIN 2.3 G/DL (3.2-5.2); BILIRUBIN,DIRECT 0.1 MG/DL (<0.4); BILIRUBIN,TOTAL 0.2 MG/DL (0.3-1.2); CALCIUM LEVEL 8.2 MG/DL (8.3-10.6); CREATININE FOR GFR 2.39 MG/DL (0.70-1.30); GLOMERULAR FILTRATION RATE 27.7 (>35); POTASSIUM SERUM 4.3 MMOL/L (3.5-5.1); TOTAL PROTEIN 6.2 G/DL (5.7-8.2)
[2024-07-02 12:05] VITALS: BP 119/51; TEMP 97.7; O2SAT 94
[2024-07-02] MEDS: POLYVINYL ALCOHOL OPHTH SOLN 15ML (LIQUITEARS) OU SCH (13:00)
[2024-07-02] MEDS: CIPROFLOXACIN 0.3% OPHTH SOLN 2.5ML OD SCH (13:47)
[2024-07-02 20:06] VITALS: BP 117/46; TEMP 98.1; O2SAT 97
[2024-07-03 04:00] VITALS: BP 119/44; TEMP 98.1; O2SAT 99
[2024-07-03 08:28] LABS: BASO # 0.1 10^3/uL (0.0-0.2); EOS # 0.2 10^3/uL (0.0-0.5); EOS % 3.7 % (0.0-3.0); HEMATOCRIT 31.9 % (42.0-52.0); HEMOGLOBIN 10.3 g/dl (13.5-17.5); LYMPH # 1.2 10^3/uL (1.5-5.0); MEAN CORPUSCULAR HEMOGLOBIN 31.9 pg (27.0-33.0); MEAN CORPUSCULAR HGB CONC 32.3 g/dl (32.0-36.5); MEAN CORPUSCULAR VOLUME 98.8 fl (80.0-96.0); MONO # 0.7 10^3/uL (0.0-0.8); NEUTROPHILS # 3.9 10^3/uL (1.5-8.5); NEUTROPHILS % 62.3 % (36.0-66.0); PLATELET COUNT, AUTOMATED 308 10^3/uL (150-450); RED BLOOD COUNT 3.23 10^6/uL (4.30-6.10); WHITE BLOOD COUNT 6.2 10^3/uL (4.0-10.0)
[2024-07-03] MEDS: NS (Normal Saline) 0.9% 1,000 ML IV SCH (08:36)
[2024-07-03] MEDS: SODIUM BICARBONATE 325 MG TAB PO SCH (08:37)
[2024-07-03 09:04] LABS: CALCIUM LEVEL 8.8 MG/DL (8.3-10.6); CREATININE FOR GFR 2.06 MG/DL (0.70-1.30); GLOMERULAR FILTRATION RATE 32.9 (>35); POTASSIUM SERUM 5.2 MMOL/L (3.5-5.1)
[2024-07-03 12:05] VITALS: BP 144/56; TEMP 97.7; O2SAT 99
[2024-07-03] MEDS: CEFUROXIME 500 MG TAB PO SCH (12:19)
[2024-07-03] MEDS: SODIUM BICARBONATE 150 MEQ in D5W 1,000 ML IV SCH (12:19)
[2024-07-03 16:06] LABS: IONIZED CALCIUM 4.8 MG/DL (4.5-5.3)
[2024-07-03 16:40] LABS: CALCIUM LEVEL 8.4 MG/DL (8.3-10.6); CREATININE FOR GFR 1.87 MG/DL (0.70-1.30); GLOMERULAR FILTRATION RATE 36.8 (>35); POTASSIUM SERUM 4.7 MMOL/L (3.5-5.1)
[2024-07-03 19:41] VITALS: BP 139/55; TEMP 97.9; O2SAT 99
[2024-07-03 20:16] VITALS: O2SAT 99
[2024-07-04 04:00] VITALS: BP 107/47; TEMP 98.1; O2SAT 98
[2024-07-04 07:38] LABS: CREATININE FOR GFR 1.69 MG/DL (0.70-1.30); GLOMERULAR FILTRATION RATE 41.4 (>35); MAGNESIUM LEVEL 1.8 MG/DL (1.8-2.4); POTASSIUM SERUM 4.4 MMOL/L (3.5-5.1)
[2024-07-05 03:49] VITALS: BP 116/55; TEMP 98.1; O2SAT 94
[2024-07-05 05:43] VITALS: O2SAT 94
[2024-07-05 11:17] LABS: HEMATOCRIT 31.3 % (42.0-52.0); MEAN CORPUSCULAR HEMOGLOBIN 31.7 pg (27.0-33.0); MEAN CORPUSCULAR HGB CONC 31.9 g/dl (32.0-36.5); MEAN CORPUSCULAR VOLUME 99.4 fl (80.0-96.0); PLATELET COUNT, AUTOMATED 330 10^3/uL (150-450); RED BLOOD COUNT 3.15 10^6/uL (4.30-6.10); WHITE BLOOD COUNT 5.6 10^3/uL (4.0-10.0)
[2024-07-05 11:46] LABS: CALCIUM LEVEL 8.6 MG/DL (8.3-10.6); CREATININE FOR GFR 1.61 MG/DL (0.70-1.30); GLOMERULAR FILTRATION RATE 43.7 (>35); POTASSIUM SERUM 4.6 MMOL/L (3.5-5.1)
[2024-07-06 03:50] VITALS: BP 121/54; TEMP 98.1; O2SAT 98
[2024-07-06 19:10] VITALS: BP 139/69; TEMP 97.5; O2SAT 98
[2024-07-06 19:20] VITALS: TEMP 96.8
[2024-07-06 20:01] LABS: KETONE, URINE AUTO RFX NEGATIVE (NEGATIVE); MUCUS, URINE RFX SMALL (NEGATIVE)
[2024-07-06 20:02] LABS: LEUKOCYTE ESTERASE UR AUTO RFX 3+ (NEGATIVE)
[2024-07-07 04:00] VITALS: BP 115/53; TEMP 98.2; O2SAT 96
[2024-07-07 16:10] VITALS: BP 125/58; TEMP 97; O2SAT 98
[2024-07-08 04:00] VITALS: BP 131/45; TEMP 98.2; O2SAT 97
[2024-07-08 10:31] LABS: HEMATOCRIT 27.6 % (42.0-52.0); HEMOGLOBIN 8.7 g/dl (13.5-17.5); MEAN CORPUSCULAR HEMOGLOBIN 31.2 pg (27.0-33.0); MEAN CORPUSCULAR HGB CONC 31.5 g/dl (32.0-36.5); MEAN CORPUSCULAR VOLUME 98.9 fl (80.0-96.0); PLATELET COUNT, AUTOMATED 283 10^3/uL (150-450); RED BLOOD COUNT 2.79 10^6/uL (4.30-6.10); WHITE BLOOD COUNT 5.1 10^3/uL (4.0-10.0)
[2024-07-08 10:57] LABS: CALCIUM LEVEL 8.6 MG/DL (8.3-10.6); CREATININE FOR GFR 1.45 MG/DL (0.70-1.30); GLOMERULAR FILTRATION RATE 49.4 (>35)
[2024-07-08] MEDS ORDERED: SUCR1ORA PO (12:17)
[2024-07-08 15:49] LABS: HEMATOCRIT 27.6 % (42.0-52.0); HEMOGLOBIN 8.6 g/dl (13.5-17.5); MEAN CORPUSCULAR HGB CONC 31.2 g/dl (32.0-36.5); MEAN CORPUSCULAR VOLUME 99.6 fl (80.0-96.0); PLATELET COUNT, AUTOMATED 290 10^3/uL (150-450); RED BLOOD COUNT 2.77 10^6/uL (4.30-6.10); WHITE BLOOD COUNT 5.2 10^3/uL (4.0-10.0)
[2024-07-08 18:00] VITALS: BP 133/69; TEMP 97.3; O2SAT 97
[2024-07-08] MEDS: ACETAMINOPHEN 325 MG TAB PO PRN (20:14)
[2024-07-08] MEDS: MAALOX 30 ML SUSP *UDC PO PRN (20:20)
[2024-07-08 20:39] VITALS: BP 163/74; O2SAT 100
[2024-07-08 23:00] VITALS: BP 142/70
[2024-07-09 03:36] VITALS: BP 112/48; TEMP 97.7; O2SAT 97
== END 2024-07-09 13:50 | disposition home health service (06) | DRG 689 ==
LOC: EDBD 17:04 → M ED 17:04 → M ED INP 20:05 → M MSPAV 22:05
PROVIDERS: ADMIT Student in an Organized Health Care Education/Training Program; ATTEND Student in an Organized Health Care Education/Training Program
PROC: B246ZZZ Ultrasonography of Right and Left Heart (ICD-10-PCS; principal; 2024-07-01)
DX: N39.0 Urinary tract infection, site not specified (principal); N17.0 Acute kidney failure with tubular necrosis; I50.32 Chronic diastolic (congestive) heart failure; F03.911 Unspecified dementia, unspecified severity, with agitation; I69.351 Hemiplegia and hemiparesis following cerebral infarction affecting right dominant side; E87.1 Hypo-osmolality and hyponatremia; I13.0 Hypertensive heart and chronic kidney disease with heart failure and stage 1 through stage 4 chronic kidney disease, or unspecified chronic kidney disease; E87.21 Acute metabolic acidosis; F79 Unspecified intellectual disabilities; E11.22 Type 2 diabetes mellitus with diabetic chronic kidney disease; I25.10 Atherosclerotic heart disease of native coronary artery without angina pectoris; R26.89 Other abnormalities of gait and mobility; N18.9 Chronic kidney disease, unspecified; E78.5 Hyperlipidemia, unspecified; D63.8 Anemia in other chronic diseases classified elsewhere; I27.20 Pulmonary hypertension, unspecified; I73.9 Peripheral vascular disease, unspecified; K21.9 Gastro-esophageal reflux disease without esophagitis; N40.0 Benign prostatic hyperplasia without lower urinary tract symptoms; R91.8 Other nonspecific abnormal finding of lung field; E87.5 Hyperkalemia; Z95.5 Presence of coronary angioplasty implant and graft; I95.9 Hypotension, unspecified; N20.0 Calculus of kidney; E11.51 Type 2 diabetes mellitus with diabetic peripheral angiopathy without gangrene; E86.0 Dehydration; I35.2 Nonrheumatic aortic (valve) stenosis with insufficiency; R19.7 Diarrhea, unspecified; R11.2 Nausea with vomiting, unspecified; B96.1 Klebsiella pneumoniae [K. pneumoniae] as the cause of diseases classified elsewhere; H10.9 Unspecified conjunctivitis; Z79.01 Long term (current) use of anticoagulants; Z79.899 Other long term (current) drug therapy; Z86.16 Personal history of COVID-19

== ENCOUNTER → 2024-07-15 | Outpatient (REF) | payer MEDICARE ==
[~2024-07-15] MED LIST changes: +SUCR1ORA PO
[2024-07-15 14:30] LABS: PERCENT SATURATION 16.5 % (19.7-50.0)
[2024-07-15 14:32] LABS: FERRITIN 277.2 NG/ML (10.5-307.3)
== END ==
LOC: M LAB REF 13:35
PROVIDERS: ATTEND Internal Medicine
DX: D50.9 Iron deficiency anemia, unspecified (principal)

== ENCOUNTER 2024-08-06 13:24 | Inpatient (IN) | payer MEDICARE ==
[~2024-08-06] VITALS: Ht 175.3 cm; Wt 76.4 kg
[2024-08-06] MEDS: NS (Normal Saline) 0.9% 1,000 ML IV ONE (14:00)
[2024-08-06] MEDS ORDERED: PIPERACILLIN/TAZOBACTAM SOD 4.5 GM in DEXTROSE 5% (D5W) ADV/MINI-BAG 50 ML IV ONE (14:20)
[2024-08-06] MEDS: [UNRECOGNIZED DRUG - OTHER] IV ONE (14:20)
[2024-08-06] MEDS: NS 0.9% IV ONE (14:20)
[2024-08-06] MEDS: CEFEPIME HCL 2 GM in DEXTROSE 5% (D5W) ADV/MINI-BAG 50 ML IV ONE (14:30)
[2024-08-06 14:55] LABS: APPEARANCE, URINE CLOUDY (CLEAR); BACTERIA, URINE AUTO 3+ (NEGATIVE); BASO % 0.4 % (0.0-1.0); BILIRUBIN, URINE AUTO NEGATIVE (NEGATIVE); BLOOD, URINE BLOOD 3+ (NEGATIVE); COLOR, URINE AMBER (YELLOW); EOS # 0.1 10^3/uL (0.0-0.5); EOS % 0.5 % (0.0-3.0); GLUCOSE, URINE (UA) AUTO NEGATIVE (NEGATIVE); HEMATOCRIT 30.9 % (42.0-52.0); KETONE, URINE AUTO NEGATIVE (NEGATIVE); LEUKOCYTE ESTERASE, URINE AUTO 3+ (NEGATIVE); LYMPH # 1.1 10^3/uL (1.5-5.0); MEAN CORPUSCULAR HEMOGLOBIN 31.3 pg (27.0-33.0); MEAN CORPUSCULAR HGB CONC 32.4 g/dl (32.0-36.5); MEAN CORPUSCULAR VOLUME 96.9 fl (80.0-96.0); MONO # 0.6 10^3/uL (0.0-0.8); MONO % 6.2 % (2.0-8.0); MUCUS, URINE SMALL (NEGATIVE); NEUTROPHILS # 7.8 10^3/uL (1.5-8.5); NEUTROPHILS % 81.6 % (36.0-66.0); NITRITE, URINE AUTO NEGATIVE (NEGATIVE); PLATELET COUNT, AUTOMATED 404 10^3/uL (150-450); PROTEIN, URINE AUTO 2+ mg/dL (NEGATIVE); RBC, URINE AUTO 65 /HPF (0-3); RED BLOOD COUNT 3.19 10^6/uL (4.30-6.10); SPECIFIC GRAVITY URINE AUTO 1.013 (1.002-1.035); SQUAMOUS EPITHELIAL CELL UR AU 1 /HPF (0-6); UROBILINOGEN, URINE AUTO 0.2 mg/dL (0.0-2.0); WBC, URINE AUTO TNTC /HPF (0-3); WHITE BLOOD COUNT 9.6 10^3/uL (4.0-10.0)
[2024-08-06 15:09] LABS: INR 1.38; PARTIAL THROMBOPLASTIN TIME 33.6 SECONDS (24.8-34.2); PROTHROMBIN TIME 17.2 SECONDS (12.5-14.5)
[2024-08-06 15:42] LABS: CPK CREATINE PHOSPHOKINASE 518 U/L (46-171)
[2024-08-06 15:47] LABS: ALBUMIN 3.1 G/DL (3.2-5.2); ALKALINE PHOSPHATASE 71 U/L (40-129); ALT/SGPT 17 U/L (7.0-40); AST/SGOT 37 U/L (<34); BILIRUBIN,DIRECT < 0.1 MG/DL (<0.4); BILIRUBIN,TOTAL 0.3 MG/DL (0.3-1.2); BLOOD UREA NITROGEN 168 MG/DL (9-23); CALCIUM LEVEL 9.4 MG/DL (8.3-10.6); CARBON DIOXIDE LEVEL 11 MMOL/L (20-31); CHLORIDE LEVEL 112 MMOL/L (98-107); CK-MB VALUE MASS 7.4 NG/ML (<3.6); FREE T4 0.96 NG/DL (0.89-1.76); GLOMERULAR FILTRATION RATE 11.3 (>35); GLUCOSE, FASTING 121 MG/DL (74-106); MB/CK RELATIVE INDEX 1.42 (< OR =4); POTASSIUM SERUM 5.8 MMOL/L (3.5-5.1); SODIUM LEVEL 142 MMOL/L (136-145); THYROID STIMULATING HORMONE 1.002 uIU/ML (0.55-4.78); TOTAL PROTEIN 7.9 G/DL (5.7-8.2)
[2024-08-06 16:36] LABS: CK-MB VALUE MASS 6.9 NG/ML (<3.6); MB/CK RELATIVE INDEX 1.6 (< OR =4)
[2024-08-06] MEDS: DEXTROSE 50% 50ML SYRINGE IV STA (16:59)
[2024-08-06] MEDS: HumuLIN R (REGULAR) INSULIN (NovoLIN R) **100U/ML** PER UNIT IV ONE (16:59)
[2024-08-06] MEDS: CALCIUM GLUCONATE 1,000 MG in DEXTROSE 5% (D5W) MINI-BAG PLU 100 ML IV ONE (17:00)
[2024-08-06 18:16] LABS: PROCALCITONIN 0.52 ng/ml
[2024-08-06 18:17] LABS: C REACTIVE PROTEIN QUANTITATIV 8.54 MG/DL (<1.0)
[2024-08-06 18:47] LABS: INR 1.53; PARTIAL THROMBOPLASTIN TIME 34.9 SECONDS (24.8-34.2); PROTHROMBIN TIME 18.7 SECONDS (12.5-14.5)
[2024-08-06] MEDS ORDERED: HOME MED LIST COMPLETE! XX SCH (19:20)
[2024-08-06] MEDS: SODIUM BICARBONATE 150 MEQ in D5W 1,000 ML IV SCH (20:03)
[2024-08-06] MEDS ORDERED: HEPARIN SOD (PORCINE) 5000UNITS/ML 1ML VIAL/SYRINGE SC SCH (22:00)
[2024-08-06] MEDS: APIXABAN 2.5 MG TAB (ELIQUIS) PO SCH (22:36)
[2024-08-07 00:08] VITALS: BP 116/52; TEMP 97.4; O2SAT 98
[2024-08-07 01:10] LABS: CALCIUM LEVEL 8.8 MG/DL (8.3-10.6); CREATININE FOR GFR 3.96 MG/DL (0.70-1.30); GLOMERULAR FILTRATION RATE 15.5 (>35); POTASSIUM SERUM 5.2 MMOL/L (3.5-5.1)
[2024-08-07 03:58] VITALS: BP 104/50; TEMP 97.3; O2SAT 97
[2024-08-07 05:47] LABS: HEMATOCRIT 26.9 % (42.0-52.0); MEAN CORPUSCULAR HEMOGLOBIN 31.6 pg (27.0-33.0); MEAN CORPUSCULAR HGB CONC 33.5 g/dl (32.0-36.5); MEAN CORPUSCULAR VOLUME 94.4 fl (80.0-96.0); PLATELET COUNT, AUTOMATED 336 10^3/uL (150-450); RED BLOOD COUNT 2.85 10^6/uL (4.30-6.10); WHITE BLOOD COUNT 8.1 10^3/uL (4.0-10.0)
[2024-08-07 06:40] LABS: CALCIUM LEVEL 8.8 MG/DL (8.3-10.6); CREATININE FOR GFR 3.48 MG/DL (0.70-1.30); POTASSIUM SERUM 4.7 MMOL/L (3.5-5.1)
[2024-08-07 08:13] VITALS: BP 139/60; TEMP 97.1; O2SAT 96
[2024-08-07] MEDS: CEFDINIR 300 MG CAP (OMNICEF) PO SCH (09:00)
[2024-08-07 12:10] VITALS: BP 142/65; TEMP 97; O2SAT 97
[2024-08-07] MEDS: CLOPIDOGREL 75 MG TAB PO SCH (12:45)
[2024-08-07] MEDS: SERTRALINE HCL 25 MG TABLET PO SCH (12:45)
[2024-08-07] MEDS ORDERED: LevoFLOXacin 500 MG TABLET PO SCH (13:10)
[2024-08-07] MEDS ORDERED: CEFEPIME HCL 1 GM in DEXTROSE 5% (D5W) ADV/MINI-BAG 50 ML IV SCH (14:00)
[2024-08-07] MEDS: SODIUM BICARBONATE 100 MEQ in D5W 1,000 ML IV SCH (15:06)
[2024-08-07 16:14] VITALS: BP 117/56; TEMP 97.6; O2SAT 100
[2024-08-07 20:28] VITALS: BP 106/55; TEMP 97.3; O2SAT 98
[2024-08-07] MEDS: DONEPEZIL 5 MG TAB PO SCH (21:59)
[2024-08-07] MEDS: TAMSULOSIN 0.4 MG CAP PO SCH (22:00)
[2024-08-07] MEDS: QUEtiapine FUMARATE 12.5 MG HALF-TAB PO SCH (22:00)
[2024-08-07] MEDS: ATORVASTATIN 20 MG TAB PO SCH (22:00)
[2024-08-08] VITALS (7 sets, daily range): BP systolic 110–145; BP diastolic 56–61; TEMP 96.5–96.9; O2SAT 90–100
[2024-08-08] MEDS: HYALURONIDASE 15UNIT/ML 1ML SYRINGE (AMPHADASE) INJ ONE (06:21)
[2024-08-08 10:28] LABS: BASO % 0.4 % (0.0-1.0); EOS # 0.2 10^3/uL (0.0-0.5); EOS % 2.2 % (0.0-3.0); HEMATOCRIT 27.2 % (42.0-52.0); LYMPH # 1.6 10^3/uL (1.5-5.0); LYMPH % 21.9 % (24.0-44.0); MEAN CORPUSCULAR HEMOGLOBIN 30.7 pg (27.0-33.0); MEAN CORPUSCULAR HGB CONC 33.1 g/dl (32.0-36.5); MEAN CORPUSCULAR VOLUME 92.8 fl (80.0-96.0); MONO # 0.6 10^3/uL (0.0-0.8); MONO % 7.7 % (2.0-8.0); NEUTROPHILS % 67.4 % (36.0-66.0); PLATELET COUNT, AUTOMATED 351 10^3/uL (150-450); RED BLOOD COUNT 2.93 10^6/uL (4.30-6.10); WHITE BLOOD COUNT 7.4 10^3/uL (4.0-10.0)
[2024-08-08 10:43] LABS: CALCIUM LEVEL 8.3 MG/DL (8.3-10.6); CREATININE FOR GFR 1.97 MG/DL (0.70-1.30); GLOMERULAR FILTRATION RATE 34.7 (>35); PERCENT SATURATION 26.6 % (19.7-50.0); POTASSIUM SERUM 3.9 MMOL/L (3.5-5.1)
[2024-08-08 10:46] LABS: FERRITIN 522.4 NG/ML (10.5-307.3)
[2024-08-08 10:47] LABS: FOLATE 10.57 NG/ML (>5.4)
[2024-08-08] MEDS: D5W 1,000 ML IV SCH (15:34)
[2024-08-09 06:14] VITALS: BP 144/66; TEMP 97; O2SAT 99
[2024-08-09 08:12] VITALS: BP 142/64; TEMP 96.9; O2SAT 98
[2024-08-09 10:25] LABS: BASO # 0.1 10^3/uL (0.0-0.2); BASO % 1.1 % (0.0-1.0); EOS # 0.3 10^3/uL (0.0-0.5); EOS % 5.4 % (0.0-3.0); HEMATOCRIT 30.2 % (42.0-52.0); HEMOGLOBIN 9.3 g/dl (13.5-17.5); LYMPH # 2.1 10^3/uL (1.5-5.0); LYMPH % 37.3 % (24.0-44.0); MEAN CORPUSCULAR HGB CONC 30.8 g/dl (32.0-36.5); MEAN CORPUSCULAR VOLUME 97.4 fl (80.0-96.0); MONO # 0.3 10^3/uL (0.0-0.8); MONO % 5.4 % (2.0-8.0); NEUTROPHILS # 2.8 10^3/uL (1.5-8.5); NEUTROPHILS % 50.3 % (36.0-66.0); PLATELET COUNT, AUTOMATED 331 10^3/uL (150-450); WHITE BLOOD COUNT 5.6 10^3/uL (4.0-10.0)
[2024-08-09 11:07] LABS: CALCIUM LEVEL 8.6 MG/DL (8.3-10.6); CREATININE FOR GFR 1.48 MG/DL (0.70-1.30); GLOMERULAR FILTRATION RATE 48.2 (>35); POTASSIUM SERUM 4.3 MMOL/L (3.5-5.1)
[2024-08-09 12:25] VITALS: BP 148/68; TEMP 97; O2SAT 97
[2024-08-09 18:45] VITALS: BP 140/62; TEMP 97.8; O2SAT 94
[2024-08-09 22:36] VITALS: BP 160/58; TEMP 97; O2SAT 97
[2024-08-09] MEDS: ONDANSETRON 4MG ORAL DISINTEGRATING TAB PO PRN (23:15)
[2024-08-10 03:42] VITALS: BP 131/54; TEMP 97.9; O2SAT 97
[2024-08-10 09:53] LABS: BASO % 0.5 % (0.0-1.0); EOS # 0.3 10^3/uL (0.0-0.5); EOS % 5.5 % (0.0-3.0); HEMOGLOBIN 8.3 g/dl (13.5-17.5); LYMPH # 2.4 10^3/uL (1.5-5.0); LYMPH % 40.2 % (24.0-44.0); MEAN CORPUSCULAR HEMOGLOBIN 30.5 pg (27.0-33.0); MEAN CORPUSCULAR HGB CONC 31.9 g/dl (32.0-36.5); MEAN CORPUSCULAR VOLUME 95.6 fl (80.0-96.0); MONO # 0.4 10^3/uL (0.0-0.8); MONO % 7.3 % (2.0-8.0); NEUTROPHILS # 2.8 10^3/uL (1.5-8.5); NEUTROPHILS % 46.2 % (36.0-66.0); PLATELET COUNT, AUTOMATED 336 10^3/uL (150-450); RED BLOOD COUNT 2.72 10^6/uL (4.30-6.10)
[2024-08-10 10:20] LABS: CALCIUM LEVEL 8.3 MG/DL (8.3-10.6); CREATININE FOR GFR 1.36 MG/DL (0.70-1.30); GLOMERULAR FILTRATION RATE 53.1 (>35); POTASSIUM SERUM 4.1 MMOL/L (3.5-5.1)
[2024-08-10 12:00] VITALS: BP 157/61; TEMP 97.9; O2SAT 100
[2024-08-10] MEDS: APIXABAN 5 MG TAB (ELIQUIS) PO SCH (20:23)
[2024-08-10] MEDS: CEFDINIR 300 MG CAP (OMNICEF) PO SCH (20:24)
[2024-08-10 21:19] VITALS: BP 125/54; TEMP 97.7; O2SAT 96
[2024-08-11 05:20] VITALS: BP 116/59; TEMP 97.5; O2SAT 96
[2024-08-11 13:25] VITALS: BP 120/70
[2024-08-11 13:43] VITALS: TEMP 96.8; TEMP 98.6
[2024-08-12 05:34] VITALS: BP 146/52; TEMP 97.3; O2SAT 96
[2024-08-12] MEDS: LIDOCAINE 4% CREAM 5GM (LMX4) TOP PRN (08:34)
[2024-08-12 12:00] VITALS: BP_SYST 127; BP_SYST 96; BP_SYST 99; BP_DIAS 48; BP_DIAS 53; BP_DIAS 58
[2024-08-13 05:09] VITALS: BP 134/46; TEMP 97.7; O2SAT 95
[2024-08-13 08:05] VITALS: BP 109/50; TEMP 98.1; O2SAT 97
[2024-08-13 09:25] LABS: BASO # 0.1 10^3/uL (0.0-0.2); BASO % 0.7 % (0.0-1.0); EOS # 0.4 10^3/uL (0.0-0.5); EOS % 4.6 % (0.0-3.0); HEMATOCRIT 28.7 % (42.0-52.0); HEMOGLOBIN 8.9 g/dl (13.5-17.5); LYMPH # 2.2 10^3/uL (1.5-5.0); LYMPH % 25.7 % (24.0-44.0); MEAN CORPUSCULAR HEMOGLOBIN 30.6 pg (27.0-33.0); MEAN CORPUSCULAR VOLUME 98.6 fl (80.0-96.0); MONO # 0.5 10^3/uL (0.0-0.8); MONO % 5.6 % (2.0-8.0); NEUTROPHILS # 5.3 10^3/uL (1.5-8.5); NEUTROPHILS % 62.8 % (36.0-66.0); PLATELET COUNT, AUTOMATED 317 10^3/uL (150-450); RED BLOOD COUNT 2.91 10^6/uL (4.30-6.10); WHITE BLOOD COUNT 8.5 10^3/uL (4.0-10.0)
[2024-08-13 09:56] LABS: ALBUMIN 2.7 G/DL (3.2-5.2); BILIRUBIN,TOTAL 0.3 MG/DL (0.3-1.2); CALCIUM LEVEL 8.8 MG/DL (8.3-10.6); CREATININE FOR GFR 1.48 MG/DL (0.70-1.30); GLOMERULAR FILTRATION RATE 48.2 (>35); POTASSIUM SERUM 4.9 MMOL/L (3.5-5.1); TOTAL PROTEIN 6.8 G/DL (5.7-8.2)
[2024-08-14 04:00] VITALS: BP 123/62; TEMP 97.2; O2SAT 100
[2024-08-15 04:00] VITALS: BP 122/63; TEMP 97.2; O2SAT 97
[2024-08-16 04:28] VITALS: BP 118/67; TEMP 97.2; O2SAT 100
[2024-08-17 04:00] VITALS: BP 119/57; TEMP 97.7; O2SAT 96
[2024-08-18 04:00] VITALS: BP 126/44; TEMP 97.9; O2SAT 95
[2024-08-18 15:56] LABS: BASO # 0.1 10^3/uL (0.0-0.2); BASO % 0.9 % (0.0-1.0); EOS # 0.3 10^3/uL (0.0-0.5); EOS % 5.3 % (0.0-3.0); HEMATOCRIT 26.1 % (42.0-52.0); HEMOGLOBIN 7.9 g/dl (13.5-17.5); LYMPH % 34.9 % (24.0-44.0); MEAN CORPUSCULAR HEMOGLOBIN 30.5 pg (27.0-33.0); MEAN CORPUSCULAR HGB CONC 30.3 g/dl (32.0-36.5); MEAN CORPUSCULAR VOLUME 100.8 fl (80.0-96.0); MONO # 0.5 10^3/uL (0.0-0.8); MONO % 8.2 % (2.0-8.0); NEUTROPHILS % 50.5 % (36.0-66.0); PLATELET COUNT, AUTOMATED 277 10^3/uL (150-450); RED BLOOD COUNT 2.59 10^6/uL (4.30-6.10); WHITE BLOOD COUNT 5.9 10^3/uL (4.0-10.0)
[2024-08-18 16:18] LABS: ALBUMIN 2.7 G/DL (3.2-5.2); BILIRUBIN,TOTAL 0.2 MG/DL (0.3-1.2); CALCIUM LEVEL 9.1 MG/DL (8.3-10.6); CREATININE FOR GFR 1.8 MG/DL (0.70-1.30); GLOMERULAR FILTRATION RATE 38.5 (>35); POTASSIUM SERUM 6.1 MMOL/L (3.5-5.1); TOTAL PROTEIN 6.8 G/DL (5.7-8.2)
[2024-08-18] MEDS: PATIROMER SORBITEX CALCIUM 8.4 GM POWDER PACKET (VELTASSA) PO ONE (16:30)
[2024-08-18 16:59] VITALS: BP 140/60; TEMP 98
[2024-08-18] MEDS: DEXTROSE 50% 50ML SYRINGE IV STA (18:14)
[2024-08-18] MEDS: HumuLIN R (REGULAR) INSULIN (NovoLIN R) **100U/ML** PER UNIT IV STA (18:15)
[2024-08-18] MEDS: CALCIUM GLUCONATE 1,000 MG in DEXTROSE 5% (D5W) MINI-BAG PLU 100 ML IV SCH (18:15)
[2024-08-18] MEDS: NS (Normal Saline) 0.9% 1,000 ML IV SCH (18:15)
[2024-08-18] MEDS: FUROSEMIDE 40MG/4ML VIAL IV ONE (18:16)
[2024-08-18 19:27] VITALS: BP 133/61; TEMP 97.3; O2SAT 94
[2024-08-18 20:59] LABS: CREATININE FOR GFR 1.84 MG/DL (0.70-1.30); GLOMERULAR FILTRATION RATE 37.5 (>35)
[2024-08-18 23:43] VITALS: BP 108/52; TEMP 97.7; O2SAT 100
[2024-08-19 04:10] VITALS: BP 110/56; TEMP 97.8; O2SAT 97
[2024-08-19 06:59] LABS: HEMOGLOBIN 8.3 g/dl (13.5-17.5); MEAN CORPUSCULAR HEMOGLOBIN 30.2 pg (27.0-33.0); MEAN CORPUSCULAR HGB CONC 30.7 g/dl (32.0-36.5); MEAN CORPUSCULAR VOLUME 98.2 fl (80.0-96.0); PLATELET COUNT, AUTOMATED 269 10^3/uL (150-450); RED BLOOD COUNT 2.75 10^6/uL (4.30-6.10); WHITE BLOOD COUNT 5.3 10^3/uL (4.0-10.0)
[2024-08-19 07:45] LABS: ALBUMIN 2.7 G/DL (3.2-5.2); BLOOD UREA NITROGEN 60 MG/DL (9-23); CALCIUM LEVEL 8.6 MG/DL (8.3-10.6); CARBON DIOXIDE LEVEL 25 MMOL/L (20-31); CHLORIDE LEVEL 103 MMOL/L (98-107); CREATININE FOR GFR 1.73 MG/DL (0.70-1.30); GLOMERULAR FILTRATION RATE 40.3 (>35); GLUCOSE, FASTING 98 MG/DL (74-106); PHOSPHORUS LEVEL 4.2 MG/DL (2.4-5.1); POTASSIUM SERUM 6.1 MMOL/L (3.5-5.1); SODIUM LEVEL 138 MMOL/L (136-145)
[2024-08-19 07:56] VITALS: BP 109/56; TEMP 97.8; O2SAT 96
[2024-08-19] MEDS ORDERED: HumuLIN R (REGULAR) INSULIN (NovoLIN R) **100U/ML** PER UNIT SC STA (08:27)
[2024-08-19] MEDS: HumuLIN R (REGULAR) INSULIN (NovoLIN R) **100U/ML** PER UNIT IV STA (09:06)
[2024-08-19] MEDS: DEXTROSE 50% 50ML SYRINGE IV STA (09:06)
[2024-08-19] MEDS: CALCIUM GLUCONATE 1,000 MG in DEXTROSE 5% (D5W) MINI-BAG PLU 100 ML IV SCH (09:07)
[2024-08-19] MEDS: FUROSEMIDE 40MG/4ML VIAL IV ONE (09:09)
[2024-08-19] MEDS: PATIROMER SORBITEX CALCIUM 8.4 GM POWDER PACKET (VELTASSA) PO ONE (11:10)
[2024-08-19] MEDS: NS (Normal Saline) 0.9% 1,000 ML IV ONE (11:10)
[2024-08-19 12:50] VITALS: BP 114/63; TEMP 97.7; O2SAT 90
[2024-08-19 13:13] LABS: C REACTIVE PROTEIN QUANTITATIV < 0.50 MG/DL (<1.0)
[2024-08-19 13:33] LABS: ERYTHROCYTE SEDIMENTATION RATE 71 mm/hr (0-20)
[2024-08-19 13:58] LABS: C REACTIVE PROTEIN QUANTITATIV < 0.50 MG/DL (<1.0)
[2024-08-19 14:01] LABS: CALCIUM LEVEL 9.7 MG/DL (8.3-10.6); CREATININE FOR GFR 1.8 MG/DL (0.70-1.30); GLOMERULAR FILTRATION RATE 38.5 (>35); POTASSIUM SERUM 4.7 MMOL/L (3.5-5.1)
[2024-08-19 14:10] LABS: PROCALCITONIN 0.23 ng/ml
[2024-08-19 15:50] VITALS: BP 116/58; TEMP 97; O2SAT 97
[2024-08-19 19:22] VITALS: BP 120/59; TEMP 96.8; O2SAT 98
[2024-08-19] MEDS: APIXABAN 5 MG TAB (ELIQUIS) PO SCH (21:05)
[2024-08-19 22:39] LABS: CALCIUM LEVEL 9.3 MG/DL (8.3-10.6); CREATININE FOR GFR 1.73 MG/DL (0.70-1.30); GLOMERULAR FILTRATION RATE 40.3 (>35); POTASSIUM SERUM 5.1 MMOL/L (3.5-5.1)
[2024-08-19 23:53] VITALS: BP 129/56; TEMP 97.8; O2SAT 95
[2024-08-20 03:39] VITALS: BP_SYST 92; BP_DIAS 48; BP_DIAS 51; TEMP 98.9; O2SAT 95
[2024-08-20 04:58] LABS: HEMATOCRIT 24.9 % (42.0-52.0); HEMOGLOBIN 7.9 g/dl (13.5-17.5); MEAN CORPUSCULAR HEMOGLOBIN 30.7 pg (27.0-33.0); MEAN CORPUSCULAR HGB CONC 31.7 g/dl (32.0-36.5); MEAN CORPUSCULAR VOLUME 96.9 fl (80.0-96.0); PLATELET COUNT, AUTOMATED 257 10^3/uL (150-450); RED BLOOD COUNT 2.57 10^6/uL (4.30-6.10); WHITE BLOOD COUNT 5.9 10^3/uL (4.0-10.0)
[2024-08-20 05:15] LABS: ALBUMIN 2.6 G/DL (3.2-5.2); CREATININE FOR GFR 1.68 MG/DL (0.70-1.30); GLOMERULAR FILTRATION RATE 41.6 (>35); PHOSPHORUS LEVEL 3.8 MG/DL (2.4-5.1); POTASSIUM SERUM 4.9 MMOL/L (3.5-5.1)
[2024-08-20 07:37] VITALS: BP 131/58; TEMP 98.7; O2SAT 97
[2024-08-20] MEDS: CLOPIDOGREL 75 MG TAB PO SCH (10:03)
[2024-08-20 12:00] VITALS: BP 113/56; TEMP 98.7; O2SAT 96
[2024-08-20 19:32] VITALS: BP 112/57; TEMP 97.5; O2SAT 97
[2024-08-20 21:58] LABS: CALCIUM LEVEL 9.4 MG/DL (8.3-10.6); CREATININE FOR GFR 2.05 MG/DL (0.70-1.30); GLOMERULAR FILTRATION RATE 33.1 (>35); POTASSIUM SERUM 5.2 MMOL/L (3.5-5.1)
[2024-08-20 23:50] VITALS: BP 123/58; TEMP 97.9; O2SAT 98
[2024-08-21 04:40] VITALS: BP 95/49; TEMP 97.8; O2SAT 96
[2024-08-21 07:44] VITALS: BP 142/65; TEMP 97.6; O2SAT 96
[2024-08-21 07:51] LABS: HEMATOCRIT 26.9 % (42.0-52.0); HEMOGLOBIN 8.2 g/dl (13.5-17.5); MEAN CORPUSCULAR HEMOGLOBIN 30.3 pg (27.0-33.0); MEAN CORPUSCULAR HGB CONC 30.5 g/dl (32.0-36.5); MEAN CORPUSCULAR VOLUME 99.3 fl (80.0-96.0); PLATELET COUNT, AUTOMATED 299 10^3/uL (150-450); RED BLOOD COUNT 2.71 10^6/uL (4.30-6.10); WHITE BLOOD COUNT 5.1 10^3/uL (4.0-10.0)
[2024-08-21 08:02] LABS: CALCIUM LEVEL 8.9 MG/DL (8.3-10.6); CREATININE FOR GFR 1.87 MG/DL (0.70-1.30); GLOMERULAR FILTRATION RATE 36.8 (>35); PHOSPHORUS LEVEL 4.1 MG/DL (2.4-5.1); POTASSIUM SERUM 4.8 MMOL/L (3.5-5.1)
[2024-08-21] MEDS: TUBERCULIN PPD 5 UNITS/0.1 ML ID ONE (10:46)
[2024-08-21 11:41] VITALS: BP 129/60; TEMP 97.6; O2SAT 98
[2024-08-21 13:11] VITALS: BP 102/52
[2024-08-21 14:15] LABS: BASO # 0.1 10^3/uL (0.0-0.2); BASO % 0.9 % (0.0-1.0); EOS # 0.3 10^3/uL (0.0-0.5); EOS % 5.8 % (0.0-3.0); LYMPH # 1.8 10^3/uL (1.5-5.0); LYMPH % 32.3 % (24.0-44.0); MONO # 0.5 10^3/uL (0.0-0.8); MONO % 8.4 % (2.0-8.0); NEUTROPHILS # 2.9 10^3/uL (1.5-8.5); NEUTROPHILS % 52.2 % (36.0-66.0)
[2024-08-21 14:44] LABS: CK-MB VALUE MASS 1.8 NG/ML (<3.6)
[2024-08-21 14:47] LABS: C REACTIVE PROTEIN QUANTITATIV < 0.50 MG/DL (<1.0); CPK CREATINE PHOSPHOKINASE 34 U/L (46-171); MB/CK RELATIVE INDEX 5.29 (< OR =4)
[2024-08-21 14:49] LABS: THYROID STIMULATING HORMONE 2.329 uIU/ML (0.55-4.78)
[2024-08-21 14:52] LABS: T UPTAKE 39.2 % (22.5-37.0)
[2024-08-21 14:53] LABS: PROCALCITONIN 0.19 ng/ml
[2024-08-21 16:00] VITALS: BP 143/64; TEMP 97.6; O2SAT 96
[2024-08-21 20:00] VITALS: BP 159/63; TEMP 97.3; O2SAT 96
[2024-08-22 04:00] VITALS: BP 124/56; TEMP 97.9; O2SAT 97
[2024-08-22 07:34] LABS: BASO % 0.6 % (0.0-1.0); EOS # 0.3 10^3/uL (0.0-0.5); EOS % 6.8 % (0.0-3.0); HEMATOCRIT 26.1 % (42.0-52.0); HEMOGLOBIN 8.1 g/dl (13.5-17.5); LYMPH # 1.8 10^3/uL (1.5-5.0); LYMPH % 36.6 % (24.0-44.0); MEAN CORPUSCULAR HEMOGLOBIN 30.8 pg (27.0-33.0); MEAN CORPUSCULAR VOLUME 99.2 fl (80.0-96.0); MONO # 0.4 10^3/uL (0.0-0.8); MONO % 8.6 % (2.0-8.0); NEUTROPHILS # 2.3 10^3/uL (1.5-8.5); NEUTROPHILS % 47.2 % (36.0-66.0); PLATELET COUNT, AUTOMATED 273 10^3/uL (150-450); RED BLOOD COUNT 2.63 10^6/uL (4.30-6.10); WHITE BLOOD COUNT 4.9 10^3/uL (4.0-10.0)
[2024-08-22 07:42] VITALS: BP 102/52; TEMP 98; O2SAT 96
[2024-08-22 07:58] LABS: ALBUMIN 2.6 G/DL (3.2-5.2); CALCIUM LEVEL 8.6 MG/DL (8.3-10.6); CREATININE FOR GFR 2.02 MG/DL (0.70-1.30); GLOMERULAR FILTRATION RATE 33.7 (>35); PHOSPHORUS LEVEL 4.3 MG/DL (2.4-5.1)
[2024-08-22 08:39] LABS: CORTISOL AM 15.6 UG/DL (4.3-22.4)
[2024-08-22 15:09] VITALS: BP 89/52; TEMP 98.6; O2SAT 94
[2024-08-22] MEDS: MIDODRINE 5 MG TAB PO ONE (15:59)
[2024-08-22] MEDS: LR 1,000 ML IV ONE (15:59)
[2024-08-22 17:30] VITALS: BP 148/82
[2024-08-22 20:00] VITALS: BP 118/58; TEMP 97.4; O2SAT 98
[2024-08-23 03:16] VITALS: BP 119/58; TEMP 97.3; O2SAT 96
[2024-08-23] MEDS: COSYNTROPIN 0.25 MG/ML 1ML VIAL IV ONE (06:19)
[2024-08-23 06:31] LABS: BASO # 0.1 10^3/uL (0.0-0.2); BASO % 0.9 % (0.0-1.0); EOS # 0.4 10^3/uL (0.0-0.5); EOS % 6.4 % (0.0-3.0); HEMATOCRIT 26.4 % (42.0-52.0); HEMOGLOBIN 8.1 g/dl (13.5-17.5); LYMPH # 2.4 10^3/uL (1.5-5.0); LYMPH % 42.3 % (24.0-44.0); MEAN CORPUSCULAR HEMOGLOBIN 30.5 pg (27.0-33.0); MEAN CORPUSCULAR HGB CONC 30.7 g/dl (32.0-36.5); MEAN CORPUSCULAR VOLUME 99.2 fl (80.0-96.0); MONO # 0.5 10^3/uL (0.0-0.8); MONO % 8.2 % (2.0-8.0); NEUTROPHILS # 2.4 10^3/uL (1.5-8.5); NEUTROPHILS % 41.7 % (36.0-66.0); PLATELET COUNT, AUTOMATED 338 10^3/uL (150-450); RED BLOOD COUNT 2.66 10^6/uL (4.30-6.10); WHITE BLOOD COUNT 5.8 10^3/uL (4.0-10.0)
[2024-08-23 07:02] LABS: ALBUMIN 3.1 G/DL (3.2-5.2); CALCIUM LEVEL 9.2 MG/DL (8.3-10.6); CREATININE FOR GFR 1.92 MG/DL (0.70-1.30); GLOMERULAR FILTRATION RATE 35.7 (>35); PHOSPHORUS LEVEL 4.1 MG/DL (2.4-5.1); POTASSIUM SERUM 5.7 MMOL/L (3.5-5.1)
[2024-08-23] MEDS: CALCIUM GLUCONATE 1,000 MG in DEXTROSE 5% (D5W) MINI-BAG PLU 100 ML IV ONE (08:38)
[2024-08-23] MEDS: PATIROMER SORBITEX CALCIUM 8.4 GM POWDER PACKET (VELTASSA) PO ONE (10:05)
[2024-08-23] MEDS: FLUDROCORTISONE ACETATE 0.1 MG TAB PO ONE (10:05)
[2024-08-23] MEDS: PPD DOCUMENTATION ENTRY MISC XX SCH (10:23)
[2024-08-23 12:00] VITALS: BP 130/60; TEMP 98.3; O2SAT 95
[2024-08-23] MEDS ORDERED: CALCIUM GLUCONATE 1,000 MG in DEXTROSE 5% (D5W) MINI-BAG PLU 100 ML IV ONE (12:50)
[2024-08-23] MEDS: NS 0.45% 1,000 ML IV SCH (13:21)
[2024-08-23] MEDS ORDERED: PATIROMER SORBITEX CALCIUM 8.4 GM POWDER PACKET (VELTASSA) PO ONE (14:00)
[2024-08-23 16:00] VITALS: BP 131/61; TEMP 98.6; O2SAT 97
[2024-08-23 20:55] VITALS: BP 147/65; TEMP 97.6; O2SAT 98
[2024-08-24] VITALS (7 sets, daily range): BP systolic 106–137; BP diastolic 53–61; TEMP 95.7–98.3; O2SAT 96–100
[2024-08-24 05:50] LABS: BASO % 0.7 % (0.0-1.0); EOS # 0.3 10^3/uL (0.0-0.5); EOS % 5.8 % (0.0-3.0); HEMATOCRIT 24.8 % (42.0-52.0); HEMOGLOBIN 7.8 g/dl (13.5-17.5); LYMPH # 2.1 10^3/uL (1.5-5.0); LYMPH % 39.4 % (24.0-44.0); MEAN CORPUSCULAR HEMOGLOBIN 30.6 pg (27.0-33.0); MEAN CORPUSCULAR HGB CONC 31.5 g/dl (32.0-36.5); MEAN CORPUSCULAR VOLUME 97.3 fl (80.0-96.0); MONO # 0.5 10^3/uL (0.0-0.8); MONO % 8.8 % (2.0-8.0); NEUTROPHILS # 2.4 10^3/uL (1.5-8.5); NEUTROPHILS % 44.9 % (36.0-66.0); PLATELET COUNT, AUTOMATED 275 10^3/uL (150-450); RED BLOOD COUNT 2.55 10^6/uL (4.30-6.10); WHITE BLOOD COUNT 5.4 10^3/uL (4.0-10.0)
[2024-08-24 06:18] LABS: ALBUMIN 2.6 G/DL (3.2-5.2); CALCIUM LEVEL 8.7 MG/DL (8.3-10.6); CREATININE FOR GFR 1.77 MG/DL (0.70-1.30); GLOMERULAR FILTRATION RATE 39.2 (>35); PHOSPHORUS LEVEL 3.4 MG/DL (2.4-5.1); POTASSIUM SERUM 4.6 MMOL/L (3.5-5.1)
[2024-08-24] MEDS ORDERED: HYDROCORTISONE 10 MG TAB PO ONE (07:45)
[2024-08-24] MEDS: FLUDROCORTISONE ACETATE 0.1 MG TAB PO SCH (09:23)
[2024-08-24] MEDS ORDERED: METH-855 PO (09:46)
[2024-08-24] MEDS ORDERED: FLUD0.1T PO (09:46)
[2024-08-24] MEDS ORDERED: CORT5TAB2 PO ×2 (09:46)
[2024-08-24] MEDS ORDERED: TALK1KIT MC (09:46)
[2024-08-24] MEDS: HYDROCORTISONE 5MG TABLET PO SCH ×2 (09:46→16:10)
[2024-08-24] MEDS: METHENAMINE HIPPURATE 1GM TABLET PO SCH (12:54)
[2024-08-24 15:37] LABS: ANA SCREEN, IFA NEGATIVE (NEGATIVE)
[2024-08-25 03:22] VITALS: BP 96/55; TEMP 97.3; O2SAT 98
[2024-08-25 06:17] LABS: BASO % 0.7 % (0.0-1.0); EOS # 0.3 10^3/uL (0.0-0.5); EOS % 5.6 % (0.0-3.0); HEMATOCRIT 24.3 % (42.0-52.0); HEMOGLOBIN 7.7 g/dl (13.5-17.5); LYMPH # 2.5 10^3/uL (1.5-5.0); LYMPH % 43.4 % (24.0-44.0); MEAN CORPUSCULAR HEMOGLOBIN 30.8 pg (27.0-33.0); MEAN CORPUSCULAR HGB CONC 31.7 g/dl (32.0-36.5); MEAN CORPUSCULAR VOLUME 97.2 fl (80.0-96.0); MONO # 0.6 10^3/uL (0.0-0.8); MONO % 9.7 % (2.0-8.0); NEUTROPHILS # 2.3 10^3/uL (1.5-8.5); NEUTROPHILS % 40.4 % (36.0-66.0); PLATELET COUNT, AUTOMATED 298 10^3/uL (150-450); WHITE BLOOD COUNT 5.7 10^3/uL (4.0-10.0)
[2024-08-25 06:39] LABS: CALCIUM LEVEL 8.6 MG/DL (8.3-10.6); CREATININE FOR GFR 1.82 MG/DL (0.70-1.30); POTASSIUM SERUM 4.4 MMOL/L (3.5-5.1)
[2024-08-25 08:26] VITALS: BP 100/56; TEMP 97.2; O2SAT 99
[2024-08-25 09:41] LABS: FERRITIN 275.8 NG/ML (10.5-307.3)
[2024-08-25 09:43] LABS: PERCENT SATURATION 25.6 % (19.7-50.0)
[2024-08-25 13:07] LABS: QuantiFERON-TB Gold Plus NEGATIVE (NEGATIVE)
== END 2024-08-25 16:40 | disposition home health service (06) | DRG 698 ==
LOC: M ED 13:24 → EDBD 13:24 → M ED INP 17:20 → M PCU 23:33 → M MS5PR 08-09 22:39 → M PCU 08-18 16:50
PROVIDERS: ADMIT Internal Medicine; ATTEND Student in an Organized Health Care Education/Training Program
DX: T83.511A Infection and inflammatory reaction due to indwelling urethral catheter, initial encounter (principal); A41.9 Sepsis, unspecified organism; G93.41 Metabolic encephalopathy; N17.9 Acute kidney failure, unspecified; E87.20 Acidosis, unspecified; E87.0 Hyperosmolality and hypernatremia; N40.1 Benign prostatic hyperplasia with lower urinary tract symptoms; F03.90 Unspecified dementia, unspecified severity, without behavioral disturbance, psychotic disturbance, mood disturbance, and anxiety; I48.91 Unspecified atrial fibrillation; I12.9 Hypertensive chronic kidney disease with stage 1 through stage 4 chronic kidney disease, or unspecified chronic kidney disease; K21.9 Gastro-esophageal reflux disease without esophagitis; I27.20 Pulmonary hypertension, unspecified; E88.09 Other disorders of plasma-protein metabolism, not elsewhere classified; I35.1 Nonrheumatic aortic (valve) insufficiency; B96.1 Klebsiella pneumoniae [K. pneumoniae] as the cause of diseases classified elsewhere; I25.10 Atherosclerotic heart disease of native coronary artery without angina pectoris; Z66 Do not resuscitate; N18.30 Chronic kidney disease, stage 3 unspecified; N39.0 Urinary tract infection, site not specified; E11.22 Type 2 diabetes mellitus with diabetic chronic kidney disease; E87.5 Hyperkalemia; D63.8 Anemia in other chronic diseases classified elsewhere; F32.A Depression, unspecified; Z79.01 Long term (current) use of anticoagulants; Z79.899 Other long term (current) drug therapy; Z86.73 Personal history of transient ischemic attack (TIA), and cerebral infarction without residual deficits

== ENCOUNTER 2024-09-14 09:30 | Inpatient (IN) | payer MEDICARE ==
[~2024-09-14] VITALS: Ht 175.3 cm; Wt 76.5 kg
[~2024-09-14 09:30] MED LIST changes: +CORT5TAB2 PO; +FLUD0.1T PO; +METH-855 PO; +TALK1KIT MC
[2024-09-14 10:08] LABS: BASO % 0.3 % (0.0-1.0); EOS % 0.3 % (0.0-3.0); HEMOGLOBIN 8.9 g/dl (13.5-17.5); LYMPH # 1.4 10^3/uL (1.5-5.0); LYMPH % 12.4 % (24.0-44.0); MEAN CORPUSCULAR HEMOGLOBIN 31.6 pg (27.0-33.0); MEAN CORPUSCULAR VOLUME 95.7 fl (80.0-96.0); MONO # 0.6 10^3/uL (0.0-0.8); MONO % 5.6 % (2.0-8.0); NEUTROPHILS # 9.3 10^3/uL (1.5-8.5); NEUTROPHILS % 80.9 % (36.0-66.0); PLATELET COUNT, AUTOMATED 312 10^3/uL (150-450); RED BLOOD COUNT 2.82 10^6/uL (4.30-6.10); WHITE BLOOD COUNT 11.5 10^3/uL (4.0-10.0)
[2024-09-14 10:21] LABS: INR 1.46; PARTIAL THROMBOPLASTIN TIME 33.7 SECONDS (24.8-34.2); PROTHROMBIN TIME 17.9 SECONDS (12.5-14.5)
[2024-09-14 10:37] LABS: C REACTIVE PROTEIN QUANTITATIV 7.6 MG/DL (<1.0)
[2024-09-14 10:45] LABS: PROCALCITONIN 0.64 ng/ml
[2024-09-14] MEDS: NS (Normal Saline) 0.9% 1,000 ML IV ONE (11:04)
[2024-09-14] MEDS: CEFEPIME HCL 2 GM in DEXTROSE 5% (D5W) ADV/MINI-BAG 50 ML IV ONE (11:48)
[2024-09-14] MEDS: NS (Normal Saline) 0.9% 1,910 ML in IV 1 EA IV ONE (12:57)
[2024-09-14] MEDS: SODIUM BICARBONATE 8.4% INJ 50ML SYRINGE IV STA ×2 (14:32→18:03)
[2024-09-14 14:33] LABS: ALBUMIN 2.9 G/DL (3.2-5.2); ALKALINE PHOSPHATASE 62 U/L (40-129); ALT/SGPT < 9 U/L (7.0-40); AST/SGOT 11 U/L (<34); BILIRUBIN,DIRECT < 0.1 MG/DL (<0.4); BILIRUBIN,TOTAL < 0.2 MG/DL (0.3-1.2); BLOOD UREA NITROGEN > 150 MG/DL (9-23); CARBON DIOXIDE LEVEL < 10.0 MMOL/L (20-31); CHLORIDE LEVEL 105 MMOL/L (98-107); GLOMERULAR FILTRATION RATE 9.1 (>35); GLUCOSE, FASTING 133 MG/DL (74-106); SODIUM LEVEL 134 MMOL/L (136-145); TOTAL PROTEIN 6.9 G/DL (5.7-8.2)
[2024-09-14] MEDS: SODIUM BICARBONATE 150 MEQ in D5W 1,000 ML IV SCH ×2 (14:47→23:31)
[2024-09-14] MEDS ORDERED: MOM 30ML SUSPENSION UDC PO PRN (15:45)
[2024-09-14] MEDS ORDERED: MAALOX 30 ML SUSP *UDC PO PRN (15:45)
[2024-09-14] MEDS ORDERED: LISI2.5T8 PO (16:28)
[2024-09-14] MEDS ORDERED: FAMO1TAB11 PO (16:35)
[2024-09-14] MEDS ORDERED: HOME MED LIST COMPLETE! XX SCH (16:35)
[2024-09-14] MEDS ORDERED: NS (Normal Saline) 0.9% 1,000 ML IV ONE (16:40)
[2024-09-14] MEDS ORDERED: HYDROCORTISONE 100MG/2ML VIAL IV ONE ×2 (17:05→17:10)
[2024-09-14 18:19] LABS: ACETONE/KETONE 0.12 MMOL/L (0.02-0.27); CALCIUM LEVEL 7.8 MG/DL (8.3-10.6); CREATININE FOR GFR 5.42 MG/DL (0.70-1.30); GLOMERULAR FILTRATION RATE 10.8 (>35); PHOSPHORUS LEVEL 8.7 MG/DL (2.4-5.1); POTASSIUM SERUM 3.9 MMOL/L (3.5-5.1)
[2024-09-14 23:00] VITALS: BP 111/55; TEMP 98.3; O2SAT 100
[2024-09-14] MEDS: METHENAMINE HIPPURATE 1GM TABLET PO SCH (23:27)
[2024-09-15] VITALS (9 sets, daily range): BP systolic 100–139; BP diastolic 47–62; TEMP 96.8–98.5; O2SAT 94–98
[2024-09-15] MEDS: FAMOTIDINE 20 MG TAB PO SCH (01:05)
[2024-09-15 05:51] LABS: BASO % 0.1 % (0.0-1.0); EOS # 0.1 10^3/uL (0.0-0.5); HEMOGLOBIN 7.3 g/dl (13.5-17.5); LYMPH # 1.1 10^3/uL (1.5-5.0); LYMPH % 15.2 % (24.0-44.0); MEAN CORPUSCULAR HEMOGLOBIN 31.5 pg (27.0-33.0); MEAN CORPUSCULAR HGB CONC 34.8 g/dl (32.0-36.5); MEAN CORPUSCULAR VOLUME 90.5 fl (80.0-96.0); MONO # 0.5 10^3/uL (0.0-0.8); MONO % 7.7 % (2.0-8.0); NEUTROPHILS # 5.2 10^3/uL (1.5-8.5); NEUTROPHILS % 75.6 % (36.0-66.0); PLATELET COUNT, AUTOMATED 245 10^3/uL (150-450); RED BLOOD COUNT 2.32 10^6/uL (4.30-6.10); WHITE BLOOD COUNT 6.9 10^3/uL (4.0-10.0)
[2024-09-15 06:11] LABS: PERCENT SATURATION 14.6 % (19.7-50.0)
[2024-09-15 06:23] LABS: MAGNESIUM LEVEL 1.8 MG/DL (1.8-2.4)
[2024-09-15] MEDS: HYDROCORTISONE 10 MG TAB PO SCH (06:46)
[2024-09-15 09:08] LABS: CALCIUM LEVEL 7.5 MG/DL (8.3-10.6); CREATININE FOR GFR 3.82 MG/DL (0.70-1.30); GLOMERULAR FILTRATION RATE 16.1 (>35)
[2024-09-15] MEDS: FLUDROCORTISONE ACETATE 0.1 MG TAB PO SCH (09:08)
[2024-09-15] MEDS ORDERED: NS (Normal Saline) 0.9% 1,000 ML IV SCH (10:15)
[2024-09-15] MEDS: POTASSIUM CHLORIDE 10MEQ SR TABLET PO ONE (10:42)
[2024-09-15 11:58] LABS: HEMATOCRIT 22.5 % (42.0-52.0); HEMOGLOBIN 7.7 g/dl (13.5-17.5)
[2024-09-15] MEDS: KCL 20MEQ in NS 1000ML 1,000 ML IV SCH (14:45)
[2024-09-15] MEDS: FERRIC CARBOXYMALTOSE INJ 750 MG, VIAL MATE ADAPTER 1 EACH in NS 100 ML IV ONE (16:16)
[2024-09-15] MEDS: HYDROCORTISONE 5MG TABLET PO SCH (16:19)
[2024-09-15] MEDS: NYSTATIN 100,000 UNITS/GM TOPICAL PWD 15GM TOP SCH (20:10)
[2024-09-16] VITALS (12 sets, daily range): BP systolic 103–134; BP diastolic 46–60; TEMP 96.2–97.1; O2SAT 80–100
[2024-09-16 06:53] LABS: HEMATOCRIT 23.8 % (42.0-52.0); HEMOGLOBIN 7.9 g/dl (13.5-17.5)
[2024-09-16 06:54] LABS: CREATININE FOR GFR 2.38 MG/DL (0.70-1.30); GLOMERULAR FILTRATION RATE 27.9 (>35); MAGNESIUM LEVEL 1.8 MG/DL (1.8-2.4); POTASSIUM SERUM 3.8 MMOL/L (3.5-5.1)
[2024-09-16] MEDS ORDERED: D5W/0.45% SODIUM CHLORIDE 1,000 ML IV SCH (07:00)
[2024-09-16] MEDS: APIXABAN 2.5 MG TAB (ELIQUIS) PO SCH (09:00)
[2024-09-16] MEDS: HYALURONIDASE 15 UNITS/ML 1ML *SC SC ONE (09:53)
[2024-09-16] MEDS: cefTRIAXone SOD 1 GM in DEXTROSE 5% (D5W) ADV/MINI-BAG 50 ML IV SCH (10:21)
[2024-09-16] MEDS: KCL 20MEQ IN 0.45NS 1000ML 1,000 ML IV SCH (11:31)
[2024-09-16] MEDS: HYDROCORTISONE 1% CREAM 30GM TOP ONE (16:31)
[2024-09-17] VITALS (8 sets, daily range): BP systolic 135–147; BP diastolic 56–65; TEMP 97–98.4; O2SAT 90–100
[2024-09-17 06:15] LABS: CREATININE FOR GFR 1.53 MG/DL (0.70-1.30); GLOMERULAR FILTRATION RATE 46.4 (>35); MAGNESIUM LEVEL 1.6 MG/DL (1.8-2.4); POTASSIUM SERUM 4.2 MMOL/L (3.5-5.1)
[2024-09-17] MEDS ORDERED: KCL 20MEQ IN D5W 1000ML 1,000 ML IV SCH (06:45)
[2024-09-17] MEDS: D5W 1,000 ML IV SCH (08:03)
[2024-09-17] MEDS: CEFDINIR 300 MG CAP (OMNICEF) PO SCH ×2 (08:03→21:00)
[2024-09-17] MEDS: MAG SULF 1GM/100ML (MAG RUN) 1 GM in IV 1 EA IV SCH (08:05)
[2024-09-17 12:50] LABS: CALCIUM LEVEL 8.1 MG/DL (8.3-10.6); CREATININE FOR GFR 1.39 MG/DL (0.70-1.30); GLOMERULAR FILTRATION RATE 51.8 (>35); POTASSIUM SERUM 4.2 MMOL/L (3.5-5.1)
[2024-09-17] MEDS ORDERED: HYOSCYAMINE SULFATE 0.125 MG SUBL TABLET PO PRN (15:15)
[2024-09-17] MEDS ORDERED: ATROPINE SULFATE 1% OPHTH SOLN 2ML BTL SL PRN (15:15)
[2024-09-19] MEDS: ACETAMINOPHEN 325 MG TAB PO PRN (20:30)
[2024-09-19] MEDS: ONDANSETRON 4MG ORAL DISINTEGRATING TAB PO PRN (20:32)
[2024-09-20] MEDS: MORPHINE 10MG/0.5ML ORAL CONCENTRATE SOLUTION U/D SL PRN (08:37)
[2024-09-20] MEDS: LORazepam 1 MG TAB PO PRN (08:37)
[2024-09-27] MEDS ORDERED: HYOS125TA PO (15:10)
[2024-09-27] MEDS ORDERED: ATIV1TAB10 PO (15:10)
[2024-09-27] MEDS ORDERED: MORP1SOL5 PO (15:10)
[2024-09-27] MEDS ORDERED: TRAN1DIS4 TOP (15:10)
== END 2024-09-28 09:15 | disposition hospice, home (50) | DRG 699 ==
LOC: M ED 09:30 → EDBD 09:30 → M ED INP 15:43 → M PCU 22:45 → M MS5PR 09-17 17:37
PROVIDERS: ADMIT Student in an Organized Health Care Education/Training Program; ATTEND General Practice
DX: T83.511A Infection and inflammatory reaction due to indwelling urethral catheter, initial encounter (principal); N17.9 Acute kidney failure, unspecified; I13.0 Hypertensive heart and chronic kidney disease with heart failure and stage 1 through stage 4 chronic kidney disease, or unspecified chronic kidney disease; I50.32 Chronic diastolic (congestive) heart failure; E87.20 Acidosis, unspecified; E27.40 Unspecified adrenocortical insufficiency; E46 Unspecified protein-calorie malnutrition; E87.0 Hyperosmolality and hypernatremia; Z66 Do not resuscitate; F03.90 Unspecified dementia, unspecified severity, without behavioral disturbance, psychotic disturbance, mood disturbance, and anxiety; E78.5 Hyperlipidemia, unspecified; I25.10 Atherosclerotic heart disease of native coronary artery without angina pectoris; I27.20 Pulmonary hypertension, unspecified; K21.9 Gastro-esophageal reflux disease without esophagitis; N40.1 Benign prostatic hyperplasia with lower urinary tract symptoms; I34.2 Nonrheumatic mitral (valve) stenosis; I34.0 Nonrheumatic mitral (valve) insufficiency; R26.89 Other abnormalities of gait and mobility; D64.9 Anemia, unspecified; Z79.01 Long term (current) use of anticoagulants; Z79.899 Other long term (current) drug therapy; Z86.16 Personal history of COVID-19; E11.22 Type 2 diabetes mellitus with diabetic chronic kidney disease; Z86.73 Personal history of transient ischemic attack (TIA), and cerebral infarction without residual deficits; N18.30 Chronic kidney disease, stage 3 unspecified; F32.A Depression, unspecified; E83.39 Other disorders of phosphorus metabolism; I95.9 Hypotension, unspecified; N39.0 Urinary tract infection, site not specified; E86.0 Dehydration; E87.6 Hypokalemia